=== PATIENT | female | born 1985 | race African-American/Black ===

== ENCOUNTER 2020-04-07 07:48 | Outpatient (CLI) | payer MEDICARE, OTHER ==
[2020-04-07 18:28] LABS: BHCG - Serum Negative (NEGATIVE); Pregs Control Background? CLEAR/WHITE (CLR/WHITE); Pregs Control Bar Appear? YES (CONTROL BAR)
[2020-04-08 14:16] LABS: SARS-CoV-2 MS2 Positive; SARS-CoV-2 N Gene Negative; SARS-CoV-2 S Gene Negative; SARS-CoV-2 by NAA Not Detected (NotDetected); SARS-CoV-2 orf1ab Negative
== END 2020-04-07 07:49 | disposition home or self-care (01) ==
LOC: LABBT 07:48
PROVIDERS: ATTEND Ophthalmology Retina Specialist
DX: Z01.812 Encounter for preprocedural laboratory examination (principal); Z11.59 Encounter for screening for other viral diseases; H57.12 Ocular pain, left eye; H44.522 Atrophy of globe, left eye
CPT/HCPCS: 84703; U0003; 87635

== ENCOUNTER 2020-09-02 11:31 | Inpatient (IN) | payer MEDICARE, OTHER ==
[2020-09-02 12:11] LABS: #Monocytes 0.9 thou/uL (0.11-0.59); %Eosinophils 0.3 % (0.0-10.0); %Lymphocytes 14.5 % (21.0-51.0); %Monocytes 12.5 % (0.0-10.0); %Neutrophils 72.7 % (42.0-75.0); Hemoglobin 11.9 g/dL (12.0-16.0); Mean Corpuscular HGB CONC 33.7 g/dL (32.0-36.0); Mean Corpuscular Hemoglobin 33.9 pg (27.0-31.0); Mean Platelet Volume 7.5 fL (7.4-10.4); Platelet Count 213 thou/uL (130-400); RBC Distribution Width 12.6 % (11.5-14.5); Red Blood Cell (RBC) Count 3.51 mill/uL (4.20-5.40); White Blood Cell (WBC) Count 6.9 thou/uL (4.8-10.8)
--- NOTE | 2020-09-02 12:21 | RAD ---
RADIOGRAPH CHEST 1 VIEW: DATE: 09/02/2020 TIME: 12:14 PM HISTORY: 35-year-old female with malaise, body ache, and dyspnea COMPARISON: 01/20/2016 FINDINGS: The degree of cardiomegaly is difficult to compare with prior study because of differences in positio reynold. Mild perihilar left upper lobe central infiltrate. Streaky density at left lower lobe may represent s ubsegmental atelectasis. No pneumothorax. No effacement of lateral costophrenic angles. Vascular stents in left arm. IMPRESSION: 1) mild left perihilar infiltrates: Evidence for early pneumonia. 2) cardiomegaly
[2020-09-02 12:40] LABS: ALT (SGPT) Less than 7 U/L (8-55); AST (SGOT) 14 U/L (5-34); Albumin 3.8 g/dL (3.5-5.0); Alkaline Phosphatase 41 U/L (40-110); Anion Gap 20 mmol/L (10-20); BUN (Urea Nitrogen) 30 mg/dL (7.0-18.7); Bilirubin, Total 0.6 mg/dL (0.2-1.2); Calc. Creatinine Clearance 0 mL/min (70-130); Calcium 9.3 mg/dL (7.8-10.44); Carbon Dioxide 25 mmol/L (22-29); Chloride 95 mmol/L (98-107); Glucose 165 mg/dL (70-105); Potassium 4.5 mmol/L (3.5-5.1); Protein, Total 8.8 g/dL (6.0-8.3); Sodium 135 mmol/L (136-145)
[2020-09-02] MEDS ORDERED: Ondansetron ODT 8 MG TAB ONE (13:44)
[2020-09-02] MEDS ORDERED: Vancomycin 1 GM/200 ML BAG ONE (14:02)
[2020-09-02] MEDS ORDERED: Morphine 4 MG/ML VIAL ONE (14:02)
[2020-09-02] MEDS ORDERED: Promethazine HCl 25 MG/ML VIAL ONE (14:03)
--- NOTE | 2020-09-02 14:21 | PDOC.FPRHP ---
- History of Present Illness Chief Complaint: N/V/D, Cough History of Present Illness: Pt is a 35 yo female with PMH significant for Diabetes diagnosed at age 13 currently controlled with insulin, ESRD MWF, HTN, anemia, HLD, nicotine abuse, anxiety, blindness who presents to the ED with N/V/D and worsening dry cough sta rting 08/29/20. She states she had decreased PO intake and not tolerating solids. She is unsure the last time she ate. She has been taking her insulin as directed and does not report significant hypoglycemic episodes. She has been taking her PO medications as directed. She has not missed dialysis, MWF schedule. They took off less fluid yesterday than usual. Pt denies COVID exposures or sick contacts. She otherwise has no complaints. TAMP - Gill - Allergies/Adverse Reactions Allergies Allergy/AdvReac Type Severity Reaction Status Date / Time ibuprofen Allergy Verified 04/07/20 15:31 lisinopril Allergy Verified 04/07/20 15:31 tramadol Allergy Verified 04/07/20 15:31 acetaminophen [From Tylenol] AdvReac Verified 04/07/20 15:31 - Home Medications Medication Instructions Recorded Confirmed Type ALPRAZolam 0.25 mg PO BID 09/02/20 09/02/20 History Amlodipine Besylate [amLODIPine 10 mg PO DAILY 09/02/20 09/02/20 History Besylate] Esomeprazole Magnesium [Nexium 40 mg PO DAILY 09/02/20 09/02/20 History 24Hr] Esomeprazole Sodium 09/02/20 History Ferric Citrate [Auryxia] 420 mg PO TID-WM 09/02/20 09/02/20 History Gabapentin 300 mg PO HS 09/02/20 09/02/20 History Insulin NPH Human Isophane 15 unit SC BID 09/02/20 09/02/20 History [NovoLIN N] Metoprolol Succinate 100 mg PO DAILY 09/02/20 09/02/20 History diphenhydrAMINE HCl 25 mg PO HS PRN 09/02/20 09/02/20 History [Diphenhydramine HCl] - History PMHx: DM insulin dependent, ESRD, HTN, Anemia, HLD, Nicotine dependence, Retinal Detachment PSHx: Eye surgery 04/24 FHx: Mother - DM Social: denies alcohol, drugs. Endorsed 1/2 ppd smoking history - Review of Systems General: reports: fever/chills, weight/appetite/sleep changes, fatigue Eyes: denies: eye pain, vision changes ENT: denies: nasal congestion, rhinorrhea Respiratory: reports: cough, congestion, shortness of breath Cardiovascular: reports: orthopnea. denies: chest pain, palpitation, edema Gastrointestinal: reports: nausea, vomiting, diarrhea. denies: constipation, abdominal pain, GI bleeding Genitourinary: denies: incontinence, dysuria Skin: denies: rashes, lesions, jaundice Musculoskeletal: denies: pain, tenderness Neurological: denies: numbness, syncope Psychological: denies: anxiety, depression - Vital signs BP: 152/74 HR: 115 RR: 25 Tmax: 103.2 Pox: 98% on RA Wt: 75 kg - Physical Exam Constitutional: NAD, awake, alert and oriented HEENT: normocephalic and atraumatic, conjunctiva clear Neck: FROM, trachea midline, no JVD Heart: pulses present, no edema -Heart: Tachycardic, no murmurs appreciated Lungs: CTAB, good air movement, no rales/rhonchi, no wheezing Abdomen: soft, non-tender, bowel sounds present Musculoskeletal: normal structure, normal tone Neurological: no focal deficit, normal sensation Skin: no rash/lesions, capillary refill <2 seconds, no jaundice Heme/Lymphatic: no unusual bruising or bleeding, no purpura, no petechia Psychiatric: normal mood and affect, good judgment and insight FMR H&P: Results - Labs Result Diagrams: 09/02/20 11:55 09/02/20 11:55 Lab results: WBC 6.9 thou/uL (4.8-10.8) 09/02/20 11:55 Hgb 11.9 g/dL (12.0-16.0) L 09/02/20 11:55 Hct 35.2 % (36.0-47.0) L 09/02/20 11:55 MCV 100.0 fL (78.0-98.0) H 09/02/20 11:55 Plt Count 213 thou/uL (130-400) 09/02/20 11:55 Neutrophils % 72.7 % (42.0-75.0) 09/02/20 11:55 Sodium 135 mmol/L (136-145) L 09/02/20 11:55 Potassium 4.5 mmol/L (3.5-5.1) 09/02/20 11:55 Chloride 95 mmol/L (98-107) L 09/02/20 11:55 Carbon Dioxide 25 mmol/L (22-29) 09/02/20 11:55 BUN 30 mg/dL (7.0-18.7) H 09/02/20 11:55 Creatinine 8.01 mg/dL (0.6-1.1) H 09/02/20 11:55 Glucose 165 mg/dL (70-105) H 09/02/20 11:55 Lactic Acid 2.4 mmol/L (0.5-2.2) H 09/02/20 11:55 Calcium 9.3 mg/dL (7.8-10.44) 09/02/20 11:55 Total Bilirubin 0.6 mg/dL (0.2-1.2) 09/02/20 11:55 AST 14 U/L (5-34) 09/02/20 11:55 ALT Less than 7 U/L (8-55) L 09/02/20 11:55 Alkaline Phosphatase 41 U/L (40-110) 09/02/20 11:55 Serum Total Protein 8.8 g/dL (6.0-8.3) H 09/02/20 11:55 Albumin 3.8 g/dL (3.5-5.0) 09/02/20 11:55 - EKG Interpretation EKG: Tachycardia, normal rhythm; no ST changes noted - Radiology Interpretation Chest x-ray Status: image reviewed by me, report reviewed by me Additional comment: No focal consolidation appreciated; no pulmonary congestion FMR H&P: A/P - Problem List (1) ESRD (end stage renal disease) Current Visit: Yes Status: Acute Code(s): N18.6 - END STAGE RENAL DISEASE (2) Fever Current Visit: Yes Status: Acute Code(s): R50.9 - FEVER, UNSPECIFIED (3) N&V (nausea and vomiting) Current Visit: Yes Status: Acute Code(s): R11.2 - NAUSEA WITH VOMITING, UNSPECIFIED (4) Diarrhea Current Visit: Yes Status: Acute Code(s): R19.7 - DIARRHEA, UNSPECIFIED (5) Poor fluid intake Current Visit: Yes Status: Acute Code(s): R63.8 - OTHER SYMPTOMS AND SIGNS CONCERNING FOOD AND FLUID INTAKE (6) DM type 1 (diabetes mellitus, type 1) Current Visit: No Status: Chronic Qualifiers: Diabetes mellitus complication status: with kidney complications Chronic kidney disease stage: stage 3 (moderate) - Plan Pt is a 35 yo female being admitted for infection of likely viral etiology: # Viral Infection Likely viral. Possible COVID infection. Less likely bacterial without left shift, leukocytosis. Will still assess for bacterial infection. CXR did not apprear to have focal consolidation. - rapid COVID, Influenza - COVID PCR - Procal pending. If positive will treat for CAP. Will not repeat abx from ED. - UA pending. She does make urine in setting of ESRD and is also diabetic. Denies significant back pain, dysuria. - Administer 2 L as she is likely fluid down due to poor PO intake, diarrhea, emesis. Will likely see improvement of vitals with fluids. - tylenol prn for fever - repeat lactic acid after receiving fluids # DM Unsure if type 1 vs 2 but is insulin dependent. Diagnosed at age 13. C-Peptide in clinic was elevated. - Will start Novolin N at 15 U BID. Unsure if she is taking 15 U BID or 30 U BID from reviewing clinic records - will discuss with PCP Dr. Gill. SSI initiated. - hyperglycemia protocol - continue gabapentin # ESRD - will require dialysis MWF # HTN - continue home medications. She was listed to have stopped Losartan/HCTZ but will clarify with PCP Dr. Gill. # HLD - continue home meds # Nicotine abuse - likely making cough worse - will not administer nicotine patch at this time # Hx of Abnormal Pap - follow up with PCP # Anxiety - continue home meds Fluids: Encourage PO intake after receiving fluids Diet: Diabetic diet, High protein VTE: Heparin TID Dispo: Admit to medical obs, LOS < 48 hours Addendum - Attending - Attending Attestation Date/Time: 09/02/201946 I personally evaluated the patient and discussed the management with Dr. Rivas. I agree with the History, Examination, Assessment and Plan documented above with any addition or exceptions noted below. patient with history of an stage renal disease on hemodialysis therapy as well as multiple other chronic medical conditions here with several days of fever, nausea, vomiting, inability to tolerate PO. Overall, labs appear stable and at baseline. Chest x-ray does not reveal any acute findings. Covid swab positive. Patient will be admitted for the following: COVID-19 infection, intractable nausea and vomiting, hypovolemia. fortunately, the patient does not have any respiratory findings at this time. She has normal vital signs with the exception of fever. Patient will be volume resuscitated and will provide anti-emetic control. Further management pending clinical course.
[2020-09-02] MEDS ORDERED: Acetaminophen 500 MG TAB ONE ×2 (15:45→22:21)
[2020-09-02 16:06] LABS: SARS-CoV-2 NAA Rapid Test DETECTED (NotDetected)
[2020-09-02] MEDS ORDERED: Cefepime 2 GM VIAL ONE (20:36)
[2020-09-02] MEDS ORDERED: Azithromycin 500 MG in Sodium Chloride 0.9% 250 ML 250 ML IVPB SCH (21:00)
[2020-09-02] MEDS ORDERED: cefTRIAXone\\ROCEPHIN 1 GM in Sodium Chloride 0.9% 100 ML IVPB SCH (21:00)
[2020-09-02] MEDS ORDERED: Gabapentin 300 MG CAP PO SCH (21:00)
--- NOTE | 2020-09-02 22:06 | CON ---
DATE OF CONSULTATION: 09/02/2020 SERVICE: Nephrology. REASON FOR CONSULTATION: End-stage renal disease management. REQUESTING PROVIDER: Donavon Rivas DO HISTORY OF PRESENT ILLNESS: 35-year-old female with known history of diabetes since age 13, complicated with diabetic nephropathy leading to end-stage renal disease, for which she is on hemodialysis Tuesday, Tuesday, Tuesday with last treatment being yesterday, August,, who presents to the hospital with acute onset of fever and worsening shortness of breath since earlier today. Patient has been having nausea, vomiting, and diarrhea as well as dry cough since August 29. She also reported ill feeling and poor oral intake and nausea and vomiting got worse also today such that she was unable to keep anything down. She was found to be febrile on presentation and further evaluation revealed COVID positivity. Nephrology consult was requested for end-stage renal disease management. PAST MEDICAL HISTORY: 1. Insulin dependent diabetes mellitus. 2. End-stage renal disease, on hemodialysis. 3. Hypertension. 4. Anemia in CKD. 5. Hyperlipidemia. 6. Tobacco dependence. 7. Retinal detachment. PAST SURGICAL HISTORY: Eye surgery. FAMILY HISTORY: Significant for diabetes in mother. SOCIAL HISTORY: Patient is a current everyday smoker, smoking about half pack per day. Denied alcohol or recreational drug use. ALLERGIES: PATIENT REPORTS ADVERSE AND ALLERGIC REACTION TO THE FOLLOWIN. IBUPROFEN. 2. LISINOPRIL. 3. TRAMADOL. 4. ACETAMINOPHEN. CURRENT HOME MEDICATIONS: 1. Alprazolam 0.25 mg p.o. b.i.d. 2. Amlodipine 10 mg p.o. daily. 3. Nexium 40 mg p.o. daily. 4. Ferric citrate 420 p.o. t.i.d. with meals. 5. Gabapentin mg p.o. daily at bedtime. 6. NPH insulin 15 units subcutaneously b.i.d. 7. Metoprolol succinate 100 mg p.o. daily. 8. Diphenhydramine 25 mg p.o. at bedtime p.r.n. REVIEW OF SYSTEMS: Patient did not make urine, but denied hematuria or dysuria. She also denied leg swelling or chest pain. She admitted to body aches and ill feeling. Other components of 12-point review of system performed was negative other than pertinent positives and negatives included in the history of present illness. PHYSICAL EXAMINATION: VITAL SIGNS: Temperature 103.2, pulse 115, respiratory rate 25, SpO2 of 98% on room air, blood pressure 152/74. GENERAL: Female, in no obvious distress. Febrile. Anicteric and acyanotic. HEENT: Normocephalic, atraumatic. Oral mucosa is dry. NECK: Supple with no JVD. CARDIOVASCULAR: Regular rhythm and rate with normal heart sounds 1 and 2. Tachycardic. RESPIRATORY: Fair air entry bilaterally with no obvious crackle or rhonchi or use of accessory muscles. GI: Abdomen is full, soft, nontender, nondistended with normal bowel sounds. EXTREMITIES: Grossly normal looking and atraumatic with no edema or erythema. SKIN: No obvious rash or lesion appreciated. [employer] SALES: Conscious, alert, oriented x3 with appropriate mental status. Cranial nerves 2 through 12 are grossly intact. DIAGNOSTIC DATA: CBC showed WBC count of 6.9, hemoglobin of 11.9, MCV of 100, and platelets of 213. Chemistry showed sodium 135, potassium 4.5, chloride 95, CO2 of 25, BUN 30, creatinine 8.01, glucose 165, calcium 9.3, total bilirubin 0.6, AST 14, ALT less than 7, alkaline phosphatase 41, total protein 8.8, albumin 3.8. Initial lactic acid is 2.4. Chest x-ray showed mild left perihilar infiltrates suggestive of early pneumonia as well as cardiomegaly. ASSESSMENT: 1. End-stage renal disease secondary to diabetic nephropathy, on hemodialysis Tuesday, Tuesday, Tuesday. Last hemodialysis was yesterday, September 01, 2020. Volume status and electrolytes are acceptable. There is no immediate need for hemodialysis today. We will plan on dialyzing the patient tomorrow in line with outpatient schedule. 2. Hypertension: Control is suboptimal. Expected to improve with restart of usual antihypertensives. 3. Anemia in chronic kidney disease, stable. 4. Coronavirus disease infection. 5. Sepsis due to coronavirus disease. 6. Tachycardia: Most likely due to volume depletion and sepsis. 7. Dehydration: We will start the patient on gentle IV fluid therapy with normal saline. 8. [place] oral intake also advised. 9. Further treatment to follow depending on hospital course. Job ID: [id number]
[2020-09-02 22:16] LABS: INR-International Normal Ratio 1.2; PTT 31.5 sec (22.9-36.1); Prothrombin Time 15.1 sec (12.0-14.7)
[2020-09-02 22:17] LABS: D-Dimer Test 1.53 *mcg/mL (0.27-0.43)
--- NOTE | 2020-09-02 22:22 | PDOC.BPN ---
- Brief Progress Note Paged by nurse that patient was requiring 2L O2, was able to wean down to 1L over the course of 1 hr. Currently sating 95 on 1L. Patient has had a fever throughout the day, most recent 101.1. HR 94, RR 22. Patient states that she does not feel short of breath, and notes intermittent cough. We ordered Covid Labs including ferritin, LDH, DD, CRP, PT & INR. Will start patient on decadron 6mg daily. Gave 1g Tylenol. On exam patient's lungs are CTAB, no LE edema or evidence of fluid overload. She last received dialysis yesterday, and will receive it again tomorrow 09/03.
[2020-09-02] MEDS ORDERED: Heparin 5,000 UNITS/ML VIAL SC SCH (23:15)
[2020-09-02] MEDS ORDERED: Dexamethasone 4 MG TAB PO SCH (23:15)
[2020-09-02] MEDS: Sodium Chloride 0.9% 1,000 ML IV SCH (23:30)
[2020-09-03] MEDS ORDERED: Ondansetron ODT 4 MG TAB PO PRN (00:15)
[2020-09-03] MEDS ORDERED: Heparin 5,000 UNITS/ML VIAL SC SCH ×2 (01:15→09:00)
[2020-09-03 01:44] VITALS: BMI 30.7
[2020-09-03] MEDS ORDERED: Promethazine 25 MG TAB PO PRN ×2 (01:46→01:48)
[2020-09-03] MEDS ORDERED: Ibuprofen 600 MG TAB PO SCH (02:15)
[2020-09-03] MEDS: ALPRAZolam 0.25 MG TAB PO SCH ×3 (02:29→23:02)
[2020-09-03] MEDS: NPH, Human Insulin Isophane 300 UNIT/3 ML VIAL SC SCH ×3 (02:29→23:24)
[2020-09-03] MEDS ORDERED: Sodium Chloride 0.9% (PF) 10 ML VIAL FS PRN (05:00)
[2020-09-03] MEDS ORDERED: Pantoprazole 40 MG VIAL IVP SCH (05:00)
[2020-09-03] MEDS ORDERED: Promethazine 25 MG TAB PO SCH (05:00)
[2020-09-03] MEDS ORDERED: Morphine 2 MG/ML VIAL SLOW IVP SCH (05:00)
[2020-09-03] MEDS: Acetaminophen 325 MG TAB PO PRN ×2 (05:32→10:56)
--- NOTE | 2020-09-03 06:17 | PDOC.FM ---
- Subjective Subjective: Overnight patient began requiring supplemental oxygen at 2 L then titrated to 1 L. She did not apparently feel short of breath according to the night team. Team ordered COVID labs for initial assessment of dyspnea and started patient on decadron. This morning pt is greatly improved. She tolerated no oxygen while I spoke with her. Nausea is controlled with phenergan. Denies SOB, LE edema. - Objective Vital Signs & Weight: Vital Signs (12 hours) Temp Pulse Resp BP Pulse Ox 09/03/20 05:32 102.2 F H 09/02/20 23:33 98.9 F 87 18 125/78 99 Weight Weight 81.102 kg Result Diagrams: 09/03/20 07:19 09/03/20 07:19 Phys Exam - Physical Examination Constitutional: NAD HEENT: PERRLA, moist MMs Neck: no JVD, full ROM Respiratory: no wheezing, no rales, no rhonchi, clear to auscultation bilateral Cardiovascular: RRR, no significant murmur Gastrointestinal: soft, positive bowel sounds Musculoskeletal: no edema, pulses present Neurological: non-focal, moves all 4 limbs Psychiatric: normal affect, A&O x 3 Dx/Plan (1) ESRD (end stage renal disease) Code(s): N18.6 - END STAGE RENAL DISEASE Status: Acute (2) Fever Code(s): R50.9 - FEVER, UNSPECIFIED Status: Acute (3) N&V (nausea and vomiting) Code(s): R11.2 - NAUSEA WITH VOMITING, UNSPECIFIED Status: Acute (4) Diarrhea Code(s): R19.7 - DIARRHEA, UNSPECIFIED Status: Acute (5) Poor fluid intake Code(s): R63.8 - OTHER SYMPTOMS AND SIGNS CONCERNING FOOD AND FLUID INTAKE Status: Acute (6) DM type 1 (diabetes mellitus, type 1) Status: Chronic Qualifiers: Diabetes mellitus complication status: with kidney complications Chronic kidney disease stage: stage 3 (moderate) - Plan Plan: Pt is a 35 yo female being admitted for COVID pneumonia: # COVID Pneumonia - repeat procalcitonin this am. It was 0.59 in the setting of ESRD. Will reassess for need of abx. - Procal pending. If positive will treat for CAP. Will not repeat abx from ED. - repeat lactic acid downtrended - no requiring oxygen supplementation at this time. Will consider discharge if she continues not requiring oxygen and has dialysis in outpt setting. - CM consulted for [facility] # N/V - likely secondary to COVID infection. Discussed possible withdrawal from benzodiazepam with her PCP who did not refill medication. She will receive Xanax today. Will start ASE protocol - Continue phenergan, zofran - Encourage PO intake, supplement with NS until she can tolerate PO intake # DM Unsure if type 1 vs 2 but is insulin dependent. Diagnosed at age 13. C-Peptide in clinic was elevated. - Will start Novolin N at 15 U BID. Unsure if she is taking 15 U BID or 30 U BID. She does not bring in medications per Dr. Gill. SSI initiated. - hyperglycemia protocol - continue gabapentin # ESRD - will require dialysis MWF. Will receive dialysis today. - Dr. Garcia consulted, appreciate recs # HTN - continue home medications. If BP not well controlled with home medications can consider starting Losartan/HCTZ which she has previously discontinued. # HLD - continue home meds # Nicotine abuse - likely making cough worse - will not administer nicotine patch at this time # Hx of Abnormal Pap - follow up with PCP # Anxiety - continue home meds Fluids: NS 75 mls/hr Diet: Diabetic diet, High protein VTE: Heparin TID Dispo: Admit to medical obs, LOS < 48 hours Addendum - Attending - Attending Attestation Date/Time: 09/03/20 [id number] I personally evaluated the patient and discussed the management with Dr. Rivas. I agree with the History, Examination, Assessment and Plan documented above with any addition or exceptions noted below.
[2020-09-03 07:34] LABS: #Lymphocytes 0.7 thou/uL (1.20-3.40); #Monocytes 0.6 thou/uL (0.11-0.59); #Neutrophils 6.4 thou/uL (1.40-6.50); %Basophils 0.2 % (0.0-1.0); %Eosinophils 0.2 % (0.0-10.0); %Lymphocytes 9.5 % (21.0-51.0); %Monocytes 8.1 % (0.0-10.0); Hemoglobin 9.2 g/dL (12.0-16.0); Mean Corpuscular HGB CONC 33.3 g/dL (32.0-36.0); Mean Corpuscular Hemoglobin 33.7 pg (27.0-31.0); Mean Platelet Volume 7.1 fL (7.4-10.4); Platelet Count 181 thou/uL (130-400); RBC Distribution Width 12.5 % (11.5-14.5); Red Blood Cell (RBC) Count 2.73 mill/uL (4.20-5.40); White Blood Cell (WBC) Count 7.8 thou/uL (4.8-10.8)
[2020-09-03 07:55] LABS: Anion Gap 17 mmol/L (10-20); BUN (Urea Nitrogen) 36 mg/dL (7.0-18.7); BUN/Creatinine Ratio 3.73; Calc. Creatinine Clearance 11 mL/min (70-130); Calcium 8.1 mg/dL (7.8-10.44); Carbon Dioxide 22 mmol/L (22-29); Chloride 100 mmol/L (98-107); Glucose 109 mg/dL (70-105); Phosphorus 5.6 mg/dL (2.3-4.7); Potassium 4.5 mmol/L (3.5-5.1); Sodium 134 mmol/L (136-145)
[2020-09-03] MEDS: Amlodipine 10 MG TAB PO SCH (09:08)
[2020-09-03] MEDS: Heparin 5,000 UNITS/ML VIAL SC SCH ×3 (09:09→23:02)
--- NOTE | 2020-09-03 09:11 | PDOC.NEPPN ---
- Subjective Encounter Date: 09/03/20 Subjective: 35 y/o female with ESRD 2/2 Diabetic nephropathy admitted with fever associated with ill feeling and SOB. Feeling better and fever has defervessed. Last treatment was on 09/01/2020. - Objective Vital Signs & Weight: Vital Signs (12 hours) Temp Pulse Resp BP BP Pulse Ox 09/03/20 08:00 100.2 F H 99 20 151/76 H 97 09/03/20 06:20 101.5 F H 100 09/03/20 05:32 102.2 F H 09/03/20 05:30 102.2 F H 105 H 20 157/49 H 98 09/03/20 04:15 102.8 F H 09/03/20 04:00 101.6 F H 112 H 22 H 167/71 H 167/71 H 98 09/02/20 23:33 98.9 F 87 18 125/78 99 09/02/20 23:30 98.9 F Weight Weight 178 lb 12.8 oz I&O: 09/02/20 09/03/20 09/04/20 06:59 06:59 06:59 Intake Total 925 Output Total 200 Balance 725 Result Diagrams: 09/03/20 07:19 09/03/20 07:19 Additional Labs: Accuchecks 09/03/20 04:22 POC Glucose 93 Nephrology ROS - Medication Medications: Active Medications Generic Name Dose Route Start Last Admin Trade Name Freq PRN Reason Stop Dose Admin Acetaminophen 650 mg 09/03/20 00:15 09/03/20 05:32 Acetaminophen 325 Mg Tab PO 650 mg Q4H PRN Administration Fever > 101 Alprazolam 0.25 mg 09/02/20 21:00 09/03/20 02:29 Alprazolam 0.25 Mg Tab PO Not Given BID MEME Sodium Chloride 1,000 mls @ 75 mls/hr 09/02/20 20:45 09/02/20 23:30 Normal Saline 0.9% IV 1,000 mls .[id number] MEME Administration Insulin Human NPH 15 unit 09/02/20 21:00 09/03/20 02:29 Nph, Human Insulin Isophane 300 Unit/3 Ml Vial SC Not Given BID MEME - Exam General Appearance: awake alert Eye: anicteric sclera ENT: normocephalic atraumatic Neck: symmetric, no JVD Respiratory - other findings: fair air entry bilterally with some transmitted sound Cardiovascular: RRR Gastrointestinal: soft, non-distended, normal bowel sounds Extremities: no edema Neurological: CN's grossly intact PSYCH: A&O x 3 Nephrology Results - Labs Result Diagrams: 09/03/20 07:19 09/03/20 07:19 Lab results: WBC 7.8 thou/uL (4.8-10.8) 09/03/20 07:19 Hgb 9.2 g/dL (12.0-16.0) L 09/03/20 07:19 Hct 27.6 % (36.0-47.0) L 09/03/20 07:19 MCV 101.0 fL (78.0-98.0) H 09/03/20 07:19 Plt Count 181 thou/uL (130-400) 09/03/20 07:19 Neutrophils % 82.0 % (42.0-75.0) H 09/03/20 07:19 Sodium 134 mmol/L (136-145) L 09/03/20 07:19 Potassium 4.5 mmol/L (3.5-5.1) 09/03/20 07:19 Chloride 100 mmol/L (98-107) 09/03/20 07:19 Carbon Dioxide 22 mmol/L (22-29) 09/03/20 07:19 BUN 36 mg/dL (7.0-18.7) H 09/03/20 07:19 Creatinine 9.66 mg/dL (0.6-1.1) H 09/03/20 07:19 Glucose 109 mg/dL (70-105) H 09/03/20 07:19 Lactic Acid 1.0 mmol/L (0.5-2.2) 09/02/20 16:25 Calcium 8.1 mg/dL (7.8-10.44) 09/03/20 07:19 Total Bilirubin 0.6 mg/dL (0.2-1.2) 09/02/20 11:55 AST 14 U/L (5-34) 09/02/20 11:55 ALT Less than 7 U/L (8-55) L 09/02/20 11:55 Alkaline Phosphatase 41 U/L (40-110) 09/02/20 11:55 Creatine Kinase 71 U/L (29-168) 09/02/20 14:05 C-Reactive Protein 3.15 mg/dL (= or < 0.5) H 09/02/20 21:58 B-Natriuretic Peptide 710.2 pg/mL (0-100) H 09/02/20 14:05 Serum Total Protein 8.8 g/dL (6.0-8.3) H 09/02/20 11:55 Albumin 3.0 g/dL (3.5-5.0) L 09/03/20 07:19 Sodium 134 mmol/L (136-145) L 09/03/20 07:19 Potassium 4.5 mmol/L (3.5-5.1) 09/03/20 07:19 Chloride 100 mmol/L (98-107) 09/03/20 07:19 Carbon Dioxide 22 mmol/L (22-29) 09/03/20 07:19 Anion Gap 17 mmol/L (10-20) 09/03/20 07:19 BUN 36 mg/dL (7.0-18.7) H 09/03/20 07:19 Creatinine 9.66 mg/dL (0.6-1.1) H 09/03/20 07:19 Glucose 109 mg/dL (70-105) H 09/03/20 07:19 Calcium 8.1 mg/dL (7.8-10.44) 09/03/20 07:19 Phosphorus 5.6 mg/dL (2.3-4.7) H 09/03/20 07:19 Albumin 3.0 g/dL (3.5-5.0) L 09/03/20 07:19 Nephrology AP PN - Plan ASSESSMENT: End-stage renal disease secondary to diabetic nephropathy, on hemodialysis Tuesday, Tuesday, Tuesday. Last hemodialysis was yesterday, September 01, 2020. Hypertension: Control is better Anemia in chronic kidney disease, stable. Coronavirus infection. Sepsis due to Covid and or bacteremia. 1/2 blood cultures is growing GPC Tachycardia: Most likely due to volume depletion and sepsis. Resolved Dehydration: Improved. PLAN Will dilayze patient today. DC IVF. Recommend antimicrobial therapy given GPC in blood. Follow Blood cultres Hold earlier planned discharge.
[2020-09-03] MEDS: Sodium Chloride 0.9% 1,000 ML IV SCH (10:15)
[2020-09-03] MEDS ORDERED: Dextrose 50% Abboject 50 ML SYRINGE SLOW IVP PRN (15:48)
[2020-09-03] MEDS ORDERED: Dextrose 5% in Water 1,000 ML IV PRN (15:48)
[2020-09-03] MEDS: Dexamethasone 4 MG TAB PO SCH (16:35)
[2020-09-03] MEDS: HumaLOG 300 UNITS/3 ML VIAL SC PRN (18:02)
[2020-09-03] MEDS: Acetaminophen 500 MG TAB PO PRN (23:02)
[2020-09-04] MEDS: diphenhydrAMINE 25 MG CAP PO PRN (00:54)
[2020-09-04] MEDS: Acetaminophen 500 MG TAB PO PRN ×2 (05:04→13:00)
--- NOTE | 2020-09-04 07:09 | PDOC.FM ---
- Subjective Subjective: Pt is doing well this morning. Titrated off of oxygen. She has not had a walking program to assess for ability to maintain oxygen saturations. She denies N/V. Has good PO intake. She felt anxious prior to be placed on oxygen last night. - Objective Vital Signs & Weight: Vital Signs (12 hours) Temp Pulse Resp BP Pulse Ox 09/04/20 05:15 98.1 F 86 18 134/84 96 09/04/20 00:54 99.9 F H 09/03/20 23:00 100.2 F H 103 H 20 129/77 100 Weight Weight 81.102 kg I&O: 09/03/20 09/04/20 09/05/20 06:59 06:59 06:59 Intake Total 925 Output Total 200 Balance 725 Result Diagrams: 09/03/20 07:19 09/03/20 07:19 Phys Exam - Physical Examination Constitutional: NAD HEENT: PERRLA, moist MMs Neck: no JVD, full ROM Respiratory: no wheezing, clear to auscultation bilateral Cardiovascular: RRR, no significant murmur Gastrointestinal: soft, non-tender Musculoskeletal: no edema, pulses present Psychiatric: normal affect, A&O x 3 Dx/Plan (1) ESRD (end stage renal disease) Code(s): N18.6 - END STAGE RENAL DISEASE Status: Acute (2) Fever Code(s): R50.9 - FEVER, UNSPECIFIED Status: Acute (3) N&V (nausea and vomiting) Code(s): R11.2 - NAUSEA WITH VOMITING, UNSPECIFIED Status: Acute (4) Diarrhea Code(s): R19.7 - DIARRHEA, UNSPECIFIED Status: Acute (5) Poor fluid intake Code(s): R63.8 - OTHER SYMPTOMS AND SIGNS CONCERNING FOOD AND FLUID INTAKE Status: Acute (6) DM type 1 (diabetes mellitus, type 1) Status: Chronic Qualifiers: Diabetes mellitus complication status: with kidney complications Chronic kidney disease stage: stage 3 (moderate) - Plan Plan: Pt is a 35 yo female being admitted for COVID pneumonia: # COVID Pneumonia - Mild disease not requiring oxygen. No need for treatment. 10 days from positive test will be removed from isolation precautions. - No documented hypoxic episode but placed on NC Oxygen overnight. Will discontinue this morning. She was anxious overnight. Will do walking program today to see if she can maintain o2 sats. # N/V - Continue phenergan, zofran. Will send home with phenergan - Encourage PO intake # DM Unsure if type 1 vs 2 but is insulin dependent. Diagnosed at age 13. C-Peptide in clinic was elevated. - Will start Novolin N at 15 U BID. Unsure if she is taking 15 U BID or 30 U BID. She does not bring in medications per Dr. Gill. SSI initiated. - hyperglycemia protocol - continue gabapentin # ESRD - Normally MWF. She has been switched to T//Sat due to COVID. She has a spot at at [address]. She has a ride. - Dr. Garcia consulted, appreciate recs # HTN - continue home medications. # HLD - continue home meds # Nicotine abuse - likely making cough worse - will not administer nicotine patch at this time # Hx of Abnormal Pap - follow up with PCP # Anxiety - continue home meds Fluids: PO Diet: Diabetic diet, High protein VTE: Heparin TID Dispo: Admit to medical obs, LOS > 48 hours Addendum - Attending - Attending Attestation Date/Time: 09/04/20 [id number] I personally evaluated the patient and discussed the management with Dr. Rivas. I agree with the History, Examination, Assessment and Plan documented above with any addition or exceptions noted below. Patient improved. Her episode of dyspnea overnight was 2/2 her anxiety that improved after she was able to calm herself. She is otherwise doing well and we are working toward discharge if her O2 sats remain stable. Her blood culture is very likely contaminant given the gram positive isaias in 1/2 culture results.
--- NOTE | 2020-09-04 07:51 | PDOC.NEPPN ---
- Subjective Encounter Date: 09/04/20 Subjective: Seen in follow up for ESRD. Had chills and fever during Hemodialysis yesterday which broke after acetaminophen. Also reported COB and hypoxia and was started on oxygen supplementation. - Objective Vital Signs & Weight: Vital Signs (12 hours) Temp Pulse Resp BP Pulse Ox 09/04/20 05:15 98.1 F 86 18 134/84 96 09/04/20 00:54 99.9 F H 09/03/20 23:00 100.2 F H 103 H 20 129/77 100 Weight Weight 178 lb 12.8 oz I&O: 09/03/20 09/04/20 09/05/20 06:59 06:59 06:59 Intake Total 925 Output Total 200 Balance 725 Result Diagrams: 09/03/20 07:19 09/03/20 07:19 Additional Labs: Accuchecks 09/04/20 09/03/20 09/03/20 05:10 23:20 15:22 POC Glucose 158 H 141 H 279 H 09/03/20 10:04 POC Glucose 135 H Nephrology ROS - Medication Medications: Active Medications Generic Name Dose Route Start Last Admin Trade Name Freq PRN Reason Stop Dose Admin Acetaminophen 650 mg 09/03/20 00:15 09/03/20 05:32 Acetaminophen 325 Mg Tab PO 650 mg Q4H PRN Administration Fever > 101 Acetaminophen 1,000 mg 09/03/20 04:45 09/04/20 05:04 Acetaminophen 500 Mg Tab PO 1,000 mg Q6H PRN Administration Moderate to Severe Pain (6-10) Alprazolam 0.25 mg 09/02/20 21:00 09/03/20 23:02 Alprazolam 0.25 Mg Tab PO 0.25 mg BID MEME Administration Amlodipine Besylate 10 mg 09/03/20 09:00 09/03/20 09:08 Amlodipine 10 Mg Tab PO 10 mg DAILY MEME Administration Dexamethasone 6 mg 09/03/20 17:00 09/03/20 16:35 Dexamethasone 4 Mg Tab PO 6 mg 1700 MEME Administration Diphenhydramine HCl 25 mg 09/02/20 16:10 09/04/20 00:54 Diphenhydramine 25 Mg Cap PO 25 mg HS PRN Administration Insomnia Heparin Sodium (Porcine) 5,000 units 09/03/20 09:00 09/03/20 23:02 Heparin 5,000 Units/Ml Vial SC 5,000 units TID MEME Administration Insulin Human Lispro 0 units 09/03/20 15:48 09/03/20 18:02 Humalog 300 Units/3 Ml Vial SC 4 unit .MILD SLIDING SCALE PRN Administration Mild Correctional Scale Insulin Human NPH 15 unit 09/02/20 21:00 09/03/20 23:24 Nph, Human Insulin Isophane 300 Unit/3 Ml Vial SC Not Given BID MEME Metoprolol Succinate 100 mg 09/03/20 09:00 09/03/20 09:09 Metoprolol Succinate Xl 100 Mg Tab PO 100 mg DAILY MEME Administration - Exam General Appearance: awake alert Eye: anicteric sclera ENT: normocephalic atraumatic Neck: symmetric Respiratory - other findings: fair air entry with some transmitted sound Cardiovascular: RRR Gastrointestinal: soft, non-tender, non-distended, normal bowel sounds Extremities: no edema Neurological: no focal deficits, vision deficit PSYCH: A&O x 3 Nephrology Results - Labs Result Diagrams: 09/03/20 07:19 09/03/20 07:19 Lab results: WBC 7.8 thou/uL (4.8-10.8) 09/03/20 07:19 Hgb 9.2 g/dL (12.0-16.0) L 09/03/20 07:19 Hct 27.6 % (36.0-47.0) L 09/03/20 07:19 MCV 101.0 fL (78.0-98.0) H 09/03/20 07:19 Plt Count 181 thou/uL (130-400) 09/03/20 07:19 Neutrophils % 82.0 % (42.0-75.0) H 09/03/20 07:19 Sodium 134 mmol/L (136-145) L 09/03/20 07:19 Potassium 4.5 mmol/L (3.5-5.1) 09/03/20 07:19 Chloride 100 mmol/L (98-107) 09/03/20 07:19 Carbon Dioxide 22 mmol/L (22-29) 09/03/20 07:19 BUN 36 mg/dL (7.0-18.7) H 09/03/20 07:19 Creatinine 9.66 mg/dL (0.6-1.1) H 09/03/20 07:19 Glucose 109 mg/dL (70-105) H 09/03/20 07:19 Lactic Acid 1.0 mmol/L (0.5-2.2) 09/02/20 16:25 Calcium 8.1 mg/dL (7.8-10.44) 09/03/20 07:19 Total Bilirubin 0.6 mg/dL (0.2-1.2) 09/02/20 11:55 AST 14 U/L (5-34) 09/02/20 11:55 ALT Less than 7 U/L (8-55) L 09/02/20 11:55 Alkaline Phosphatase 41 U/L (40-110) 09/02/20 11:55 Creatine Kinase 71 U/L (29-168) 09/02/20 14:05 C-Reactive Protein 3.15 mg/dL (= or < 0.5) H 09/02/20 21:58 B-Natriuretic Peptide 710.2 pg/mL (0-100) H 09/02/20 14:05 Serum Total Protein 8.8 g/dL (6.0-8.3) H 09/02/20 11:55 Albumin 3.0 g/dL (3.5-5.0) L 09/03/20 07:19 Sodium 134 mmol/L (136-145) L 09/03/20 07:19 Potassium 4.5 mmol/L (3.5-5.1) 09/03/20 07:19 Chloride 100 mmol/L (98-107) 09/03/20 07:19 Carbon Dioxide 22 mmol/L (22-29) 09/03/20 07:19 Anion Gap 17 mmol/L (10-20) 09/03/20 07:19 BUN 36 mg/dL (7.0-18.7) H 09/03/20 07:19 Creatinine 9.66 mg/dL (0.6-1.1) H 09/03/20 07:19 Glucose 109 mg/dL (70-105) H 09/03/20 07:19 Calcium 8.1 mg/dL (7.8-10.44) 09/03/20 07:19 Phosphorus 5.6 mg/dL (2.3-4.7) H 09/03/20 07:19 Albumin 3.0 g/dL (3.5-5.0) L 09/03/20 07:19 Nephrology AP PN - Plan ASSESSMENT: Positive blood culture with Gram positive isaias: Concerning for bacteremia. Still having intermittent fever End-stage renal disease secondary to diabetic nephropathy, on hemodialysis Tuesday, Tuesday, Tuesday. Last hemodialysis was on September 03, 2020. Hypertension: Control is better Anemia in chronic kidney disease, stable. Coronavirus infection. Sepsis due to Covid and or bacteremia. Tachycardia: Most likely due to volume depletion and sepsis. Resolved Dehydration: Resolved Covid infection Hypoxia: ? related to covid. PLAN Will plan on dialyzing patient tomorrow. Patient should be considered for covalescent plasma treatment given elevated inflamatory markers and cormobidities. Get repeat inflammatory marker. Monitor vitals and temp. Get repeat culture should she spike temp. Follow Blood cultres
[2020-09-04] MEDS: Amlodipine 10 MG TAB PO SCH (08:10)
[2020-09-04] MEDS: ALPRAZolam 0.25 MG TAB PO SCH ×2 (08:10→22:45)
[2020-09-04] MEDS: NPH, Human Insulin Isophane 300 UNIT/3 ML VIAL SC SCH ×2 (08:12→20:29)
[2020-09-04] MEDS: Heparin 5,000 UNITS/ML VIAL SC SCH ×3 (08:13→19:59)
[2020-09-04] MEDS: Pantoprazole 40 MG VIAL IVP SCH (08:56)
--- NOTE | 2020-09-04 13:45 | PQF ---
CLINICAL DOCUMENTATION CLARIFICATION FORM: Dear Dr. Rivas Date: 09/04/20 Please exercise your independent, professional judgment in responding to the clarification form. Clinical indicators are provided on the bottom of this form for your review. Please check appropriate box(es) to clarify if the following diagnosis has been ruled in our ruled out: SEPSIS [ ] Ruled in diagnosis [ ] Continue to treat [ ] Resolved [ X ] Ruled out diagnosis [ ] Improving [ ] Cannot rule out diagnosis [ ] Other diagnosis [ ] Unable to determine In addition, please specify: Present on Admission (POA): [ ] Yes [ X ] No [ ] Unable to determine For continuity of documentation, please document condition throughout progress notes and discharge summary. Thank You. To be completed by CDI/Coding staff for physician review: CLINICAL INDICATORS - SIGNS / SYMPTOMS / LABS / RESULTS AND LOCATION IN MR ER NOTE:"SEPSIS" NEPHROLOGY NOTE 09/03: "SEPSIS" PULSE 115 RR 25 TEMP 103.2 RISK FACTORS / RESULTS AND LOCATION IN MR COVID 19 (PN 09/02- VINCE) ESRD (PN 09/02) DIABETES (PN 09/02) TREATMENTS / RESULTS AND LOCATION IN MR IV CEFEPIME (ER) IV VANCOMYCIN (ER) IV LEVAUIN (ER) IV FLUIDS (ER) BLOOD CULTURES 09/02 CDS Signature: Heather Wood RN Phone #: [phone] Date: 09/04/20 This is a permanent part of the Medical Record [facility]
[2020-09-04] MEDS: Dexamethasone 4 MG TAB PO SCH (18:17)
[2020-09-04] MEDS: HumaLOG 300 UNITS/3 ML VIAL SC PRN (18:18)
[2020-09-04] MEDS ORDERED: Cyclobenzaprine 10 MG TAB PO SCH (19:30)
[2020-09-04] MEDS ORDERED: Promethazine HCl 12.5 MG in Sodium Chloride 0.9% 50 ML IVPB SCH (19:45)
[2020-09-04] MEDS: Lidocaine 5% Patch TD SCH (19:59)
[2020-09-04] MEDS: Acetaminophen 325 MG TAB PO PRN (20:17)
[2020-09-05] MEDS: Acetaminophen 500 MG TAB PO PRN ×2 (01:44→14:00)
--- NOTE | 2020-09-05 06:23 | PDOC.FM ---
- Subjective Subjective: Overnight patient was personally evaluated by team. Pt desaturated to 87% while sleeping. Nurse noted desaturation to 80's with ambulation to restroom yesterday. She also has pain and received a lidocaine patch by night team. - Objective Vital Signs & Weight: Vital Signs (12 hours) Temp Pulse Resp BP BP Pulse Ox 09/05/20 05:50 99.9 F H 90 20 102/63 94 L 09/05/20 03:06 93 L 09/05/20 01:44 101.0 F H 108 H 24 H 124/48 L 93 L 09/04/20 23:05 102.3 F H 99 20 116/72 88 L 09/04/20 20:47 101.1 F H 09/04/20 20:17 103.0 F H 102 H 20 141/81 H 09/04/20 20:00 90 L Weight Weight 81.102 kg I&O: 09/03/20 09/04/20 09/05/20 06:59 06:59 06:59 Intake Total 925 2000 Output Total 200 300 Balance 725 1700 Result Diagrams: 09/03/20 07:19 09/05/20 05:53 Phys Exam - Physical Examination Constitutional: NAD HEENT: moist MMs, sclera anicteric Neck: no JVD, full ROM Respiratory: no wheezing, clear to auscultation bilateral Cardiovascular: RRR, no significant murmur Gastrointestinal: soft, positive bowel sounds Musculoskeletal: no edema, pulses present Neurological: non-focal, normal sensation tenderness in cervical and lumbar paraspinal region Psychiatric: normal affect, A&O x 3 Skin: no rash, cap refill <2 seconds Dx/Plan (1) ESRD (end stage renal disease) Code(s): N18.6 - END STAGE RENAL DISEASE Status: Acute (2) Fever Code(s): R50.9 - FEVER, UNSPECIFIED Status: Acute (3) N&V (nausea and vomiting) Code(s): R11.2 - NAUSEA WITH VOMITING, UNSPECIFIED Status: Acute (4) Diarrhea Code(s): R19.7 - DIARRHEA, UNSPECIFIED Status: Acute (5) Poor fluid intake Code(s): R63.8 - OTHER SYMPTOMS AND SIGNS CONCERNING FOOD AND FLUID INTAKE Status: Acute (6) DM type 1 (diabetes mellitus, type 1) Status: Chronic Qualifiers: Diabetes mellitus complication status: with kidney complications Chronic kidney disease stage: stage 3 (moderate) - Plan Plan: Pt is a 35 yo female being admitted for COVID pneumonia: # COVID Pneumonia # Acute hypoxic resp failure - Mild disease - requiring 2-3 L NC oxygen overnight. Continue to monitor during day. WIll go ahead and give convalescent plasma today. Continue dexamethasone. Unable to receive remdesivir due to ESRD. - repeat procalcitonin # N/V - Continue phenergan, zofran. Will send home with phenergan - Encourage PO intake # Back Pain - continue lidocaine patch, will discuss muscle relaxer - encourage ambulation # DM Unsure if type 1 vs 2 but is insulin dependent. Diagnosed at age 13. C-Peptide in clinic was elevated. - Will start Novolin N at 15 U BID. Unsure if she is taking 15 U BID or 30 U BID. She does not bring in medications per Dr. Gill. SSI initiated. Continue same dosing although BG was 70 overnight. - hyperglycemia protocol - continue gabapentin # ESRD - Normally MWF. She has been switched to //Tue due to COVID. She has a spot at [facility] at [address] Garcia. She has a ride. - Dr. Garcia consulted, appreciate recs # HTN - continue home medications. # HLD - continue home meds # Nicotine abuse - likely making cough worse - will not administer nicotine patch at this time # Hx of Abnormal Pap - follow up with PCP # Anxiety - continue home meds Fluids: PO Diet: Diabetic diet, High protein VTE: Heparin TID Dispo: Admit to medical obs, LOS > 48 hours Addendum - Attending - Attending Attestation Date/Time: 09/05/20 1108 I personally evaluated the patient and discussed the management with Dr. Rivas. I agree with the History, Examination, Assessment and Plan documented above with any addition or exceptions noted below. Patient having off/on O2 requirement. She has convalescent plasma ordered for her, though her presentation is not necessarily c/w COVID decompensation. She is otherwise feeling well. Her blood culture was contaminant. Will consider reculture if spikes fever, though she has much more likely explanation for her fevers given her COVID positive status. Continue Decadron and wean O2 as tolerated. Nephro on board specifically for HD management and appreciate their managing her HD schedule.
[2020-09-05 06:32] LABS: Anion Gap 18 mmol/L (10-20); BUN (Urea Nitrogen) 46 mg/dL (7.0-18.7); Calc. Creatinine Clearance 11 mL/min (70-130); Carbon Dioxide 25 mmol/L (22-29); Chloride 94 mmol/L (98-107); Glucose 97 mg/dL (70-105); Potassium 4.2 mmol/L (3.5-5.1); Sodium 133 mmol/L (136-145)
[2020-09-05] MEDS: Amlodipine 10 MG TAB PO SCH (08:51)
[2020-09-05] MEDS: ALPRAZolam 0.25 MG TAB PO SCH ×3 (08:51→22:41)
[2020-09-05] MEDS: Heparin 5,000 UNITS/ML VIAL SC SCH ×3 (08:52→21:15)
[2020-09-05] MEDS: [UNRECOGNIZED DRUG - REMARK] TOP SCH (08:52)
[2020-09-05] MEDS: NPH, Human Insulin Isophane 300 UNIT/3 ML VIAL SC SCH ×2 (08:52→21:16)
[2020-09-05] MEDS: Pantoprazole 40 MG VIAL IVP SCH (08:53)
[2020-09-05] MEDS ORDERED: Lidocaine 5% Patch TD SCH (09:00)
[2020-09-05] MEDS ORDERED: hydrOXYzine 10 MG TAB PO SCH (12:30)
--- NOTE | 2020-09-05 13:40 | RAD ---
EXAM: Chest one view: HISTORY: Worsening oxygen requirement difficulty breathing dyspnea COMPARISON: 09/02/2020 FINDINGS: Poor inspiration. Heart size: Within normal limits. Lungs: Considerable progressive parenchymal changes including the right lower lobe and left mid and l ower lung zone evidence for worsening bilateral pneumonia. No significant pleural effusion. IMPRESSION: Evidence for worsening bilateral pneumonia.
[2020-09-05] MEDS: cefTRIAXone\\ROCEPHIN 1 GM in Sodium Chloride 0.9% 100 ML IVPB SCH (13:50)
[2020-09-05] MEDS: Azithromycin 500 MG in Sodium Chloride 0.9% 250 ML 250 ML IVPB SCH (15:15)
--- NOTE | 2020-09-05 15:55 | ULT ---
EXAM: Left lower extremity venous Doppler HISTORY: Left leg pain. Covid positive. FINDINGS: Grayscale, color-flow, Doppler evaluation, spectral analysis of the left lower extremity venous struc tures is performed with 2-D imaging. The left common femoral, superficial femoral, popliteal, posterior tibial, proximal greater saphenous and profunda femoral veins are imaged. The mid and distal superficial femoral veins are not well seen on grayscale imaging limiting evaluati on for nonocclusive DVT. However, flow is present within these venous structures in addition to normal augmentation. There is normal luminal compressibility, flow, and augmentation in the remaining visualized deep venous structures of the left lower extremity. IMPRESSION: Limited assessment of the mid and distal left superficial femoral veins on grayscale imaging limiting evaluation for nonocclusive DVT compares normal flow and augmentation in these veins without evidence of an occlusive DVT. There is otherwise no evidence of a deep vein thrombosis in the remaini ng visualized deep venous structures left lower extremity.
[2020-09-05 16:30] LABS: ALT (SGPT) 13 U/L (8-55); AST (SGOT) 31 U/L (5-34); Albumin 2.8 g/dL (3.5-5.0); Alkaline Phosphatase 43 U/L (40-110); Anion Gap 19 mmol/L (10-20); BUN (Urea Nitrogen) 51 mg/dL (7.0-18.7); Bilirubin, Total 0.3 mg/dL (0.2-1.2); Calc. Creatinine Clearance 10 mL/min (70-130); Calcium 7.7 mg/dL (7.8-10.44); Carbon Dioxide 21 mmol/L (22-29); Chloride 97 mmol/L (98-107); Glucose 91 mg/dL (70-105); Potassium 4.3 mmol/L (3.5-5.1); Protein, Total 6.8 g/dL (6.0-8.3); Sodium 133 mmol/L (136-145)
[2020-09-05 16:34] LABS: Troponin I 0.058 ng/mL (< 0.028)
--- NOTE | 2020-09-05 17:01 | PRG ---
DATE OF SERVICE: 09/05/2020 SUBJECTIVE: The patient is seen and examined, seems to still be spiking fever. OBJECTIVE: VITAL SIGNS: Temperature of up to 103.2 with a heart rate of 89 to 103, respiratory rate of 20, O2 saturation of 96% to 100% with a blood pressure of 160/67. HEENT: Unremarkable. CARDIOVASCULAR SYSTEM: First and second heart sounds were heard. RESPIRATORY SYSTEM: Clear to auscultation anteriorly with some rales. DIGESTIVE SYSTEM: Revealed a benign abdomen. EXTREMITIES: No peripheral edema. SKIN: No new gross rash. LYMPHATICS: No peripheral lymphadenopathy. LABORATORY DATA: Chemistry showed a potassium of 4.3, bicarb of 21, BUN of 51 with a creatinine of 9.76, calcium 7.7, albumin of 2.8. Procalcitonin of 1.66. IMPRESSION: 1. End-stage renal disease, on hemodialysis. 2. Diabetes mellitus. 3. Respiratory distress in the context of problem #4. 4. COVID pneumonitis. 5. Pulmonary congestion with possible worsening pneumonitis. PLAN: 1. The patient to be dialyzed today with ultrafiltration as tolerated by hemodynamics. 2. Given the persistent fever in this patient despite all broad-spectrum management, we will go ahead and request for Infectious Disease specialist input. 3. Further management will be dependent on the clinical course. I did hear the patient will be receiving convalescent plasma today. Job ID: [id number]
[2020-09-05] MEDS: Dexamethasone 4 MG TAB PO SCH (17:43)
[2020-09-05] MEDS: Cyclobenzaprine 10 MG TAB PO PRN (19:22)
[2020-09-05 19:29] LABS: Troponin I 0.073 ng/mL (< 0.028)
[2020-09-05] MEDS: Promethazine 25 MG TAB PO PRN (19:30)
[2020-09-05] MEDS ORDERED: [UNRECOGNIZED DRUG - REMARK] TOP SCH (21:00)
[2020-09-05] MEDS: Lidocaine 5% Patch TD SCH (21:15)
[2020-09-05] MEDS ORDERED: hydrOXYzine 25 MG/ML VIAL IM SCH (23:15)
[2020-09-06] MEDS: Acetaminophen 500 MG TAB PO PRN (00:19)
[2020-09-06] MEDS: HumaLOG 300 UNITS/3 ML VIAL SC PRN ×3 (06:06→20:59)
--- NOTE | 2020-09-06 06:16 | PDOC.FM ---
- Subjective Subjective: Pt's pain improved overnight with a heating pad. Her anxiety diminished with atarax. Otherwise the patient is doing well today. She does not have chest pain or pressure. She is not anxious currently. She has no questions. She tolerated dialysis yesterday and respiratory status improved afterwards. - Objective Vital Signs & Weight: Vital Signs (12 hours) Temp Pulse Resp BP Pulse Ox 09/06/20 04:14 97.7 F 80 18 102/59 L 91 L 09/06/20 03:07 98.7 F 18 98/61 95 09/06/20 02:52 98.7 F 18 105/68 91 L 09/06/20 01:00 103.3 F H 105 H 18 118/67 93 L 09/06/20 00:19 103.3 F H 09/06/20 00:04 93 L 09/05/20 20:51 99.2 F 102 H 20 149/70 H 93 L 09/05/20 20:00 93 L Weight Weight 81.102 kg Most Recent Monitor Data Heart Rate from ECG 80 I&O: 09/04/20 09/05/20 09/06/20 06:59 06:59 06:59 Intake Total 925 2000 240 Output Total 200 300 Balance 725 1700 240 Result Diagrams: 09/06/20 06:34 09/06/20 06:34 Phys Exam - Physical Examination Constitutional: NAD HEENT: moist MMs, sclera anicteric Neck: no JVD, full ROM Respiratory: no wheezing, no rales, no rhonchi Cardiovascular: RRR, no significant murmur Gastrointestinal: soft, positive bowel sounds Musculoskeletal: no edema, pulses present Neurological: normal sensation, moves all 4 limbs Psychiatric: normal affect, A&O x 3 Skin: no rash, cap refill <2 seconds Dx/Plan (1) ESRD (end stage renal disease) Code(s): N18.6 - END STAGE RENAL DISEASE Status: Acute (2) Fever Code(s): R50.9 - FEVER, UNSPECIFIED Status: Acute (3) N&V (nausea and vomiting) Code(s): R11.2 - NAUSEA WITH VOMITING, UNSPECIFIED Status: Acute (4) Diarrhea Code(s): R19.7 - DIARRHEA, UNSPECIFIED Status: Acute (5) Poor fluid intake Code(s): R63.8 - OTHER SYMPTOMS AND SIGNS CONCERNING FOOD AND FLUID INTAKE Status: Acute (6) DM type 1 (diabetes mellitus, type 1) Status: Chronic Qualifiers: Diabetes mellitus complication status: with kidney complications Chronic kidney disease stage: stage 3 (moderate) - Plan Plan: Pt is a 35 yo female being admitted for COVID pneumonia: # COVID Pneumonia # Acute hypoxic resp failure - Mild disease - requiring 2-3 L NC oxygen overnight. Continue to monitor during day. WIll go ahead and give convalescent plasma today. Continue dexamethasone. Unable to receive remdesivir due to ESRD. - repeat procalcitonin in am - She tends to have O2 desaturations when anxious and elevated temperature. Deleon schedule tylenol. - added ceftriaxone, azithromycin on 09/05/19 for elevated procalcitonin and worsening CXR. Dr. Arauz consulted Dr. Valle as well. - No DVT noted in LLE, EKG WNL # N/V - Continue phenergan, zofran. Will send home with phenergan - Encourage PO intake # Back Pain - continue lidocaine patch, muscle relaxer, heating pad - encourage ambulation # DM Unsure if type 1 vs 2 but is insulin dependent. Diagnosed at age 13. C-Peptide in clinic was elevated. - Will start Novolin N at 15 U BID. Unsure if she is taking 15 U BID or 30 U BID. She does not bring in medications per Dr. Gill. SSI initiated. Continue same dosing although BG was 70 overnight. - hyperglycemia protocol - continue gabapentin # ESRD - Normally MWF. She has been switched to //Tue due to COVID. She has a spot at at [address] Garcia. She has a ride. - Dr. Arauz consulted, appreciate recs # HTN - continue home medications. # HLD - continue home meds # Nicotine abuse - likely making cough worse - will not administer nicotine patch at this time # Hx of Abnormal Pap - follow up with PCP # Anxiety - continue home meds Fluids: PO Diet: Diabetic diet, High protein VTE: Heparin TID Dispo: Admit to medical obs, LOS > 48 hours Addendum - Attending - Attending Attestation Date/Time: 09/06/20 0730 I personally evaluated the patient and discussed the management with Dr. Rivas. I agree with the History, Examination, Assessment and Plan documented above with any addition or exceptions noted below. Patient stable. Continues to have some shortness of breath associated with anxiety when she fevers, but otherwise denies respiratory complaints. She continues to spike fever, but this is not unexpected given her COVID infection. She continues on antibiotics and steroids, and has received plasma. Nephro on board to manage her HD. ID has been consulted by that group to further evaluate her febrile illness, though my suspicion is all part of the normal COVID infection. No other evidence of bacterial infection. 1/2 Bcx positive for bacillus, a most certain contaminant.
[2020-09-06 07:09] LABS: ALT (SGPT) 18 U/L (8-55); AST (SGOT) 40 U/L (5-34); Albumin 3.2 g/dL (3.5-5.0); Alkaline Phosphatase 52 U/L (40-110); Anion Gap 21 mmol/L (10-20); BUN (Urea Nitrogen) 30 mg/dL (7.0-18.7); Bilirubin, Total 0.4 mg/dL (0.2-1.2); Calc. Creatinine Clearance 18 mL/min (70-130); Calcium 8.3 mg/dL (7.8-10.44); Carbon Dioxide 23 mmol/L (22-29); Chloride 94 mmol/L (98-107); Globulin 4.5 g/dL (2.4-3.5); Glucose 206 mg/dL (70-105); Potassium 4.6 mmol/L (3.5-5.1); Protein, Total 7.7 g/dL (6.0-8.3); Sodium 133 mmol/L (136-145)
[2020-09-06 08:06] LABS: Band 2 % (5-11); Hemoglobin 9.4 g/dL (12.0-16.0); Lymphocytes 8 % (21-51); MDiff Complete? YES; Mean Corpuscular HGB CONC 31.2 g/dL (32.0-36.0); Mean Corpuscular Hemoglobin 32.1 pg (27.0-31.0); Mean Platelet Volume 8.3 fL (7.4-10.4); Monocytes 6 % (0-10); Neutrophil 84 % (42-75); Platelet Count 193 thou/uL (130-400); RBC Distribution Width 13.1 % (11.5-14.5); Red Blood Cell (RBC) Count 2.92 mill/uL (4.20-5.40)
[2020-09-06] MEDS: ALPRAZolam 0.25 MG TAB PO SCH ×2 (08:08→20:36)
[2020-09-06] MEDS: Amlodipine 10 MG TAB PO SCH (08:08)
[2020-09-06] MEDS: Heparin 5,000 UNITS/ML VIAL SC SCH ×3 (08:11→20:37)
[2020-09-06] MEDS: Acetaminophen 500 MG TAB PO SCH ×2 (11:42→18:05)
[2020-09-06] MEDS: NPH, Human Insulin Isophane 300 UNIT/3 ML VIAL SC SCH ×2 (11:45→20:37)
--- NOTE | 2020-09-06 15:22 | EKG ---
Test Reason : Blood Pressure : / mmHG Vent. Rate : 108 BPM Atrial Rate : 108 BPM P-R Int : 154 ms QRS Dur : 070 ms QT Int : 324 ms P-R-T Axes : 068 256 075 degrees QTc Int : 434 ms Sinus tachycardia Possible Left atrial enlargement Right superior axis deviation Possible Anteroseptal infarct , age undetermined Abnormal ECG Confirmed by SEVERO NOVAK, MADELINE ([id number]), book or script editor TEZ GANDARA ([id number]) on 09/06/2020 3:21:58 PM Referred By: Confirmed By:MADELINE ELKINS MD
[2020-09-06] MEDS: Pantoprazole 40 MG VIAL IVP SCH (15:44)
[2020-09-06] MEDS: cefTRIAXone\\ROCEPHIN 1 GM in Sodium Chloride 0.9% 100 ML IVPB SCH (15:48)
[2020-09-06] MEDS: [UNRECOGNIZED DRUG - REMARK] TOP SCH (17:15)
[2020-09-06] MEDS: Azithromycin 500 MG in Sodium Chloride 0.9% 250 ML 250 ML IVPB SCH (18:03)
[2020-09-06] MEDS: Dexamethasone 4 MG TAB PO SCH (18:04)
--- NOTE | 2020-09-06 19:37 | PRG ---
DATE OF SERVICE: 09/06/2020 SUBJECTIVE: The patient is seen and examined. Seems to be doing much better. OBJECTIVE: VITAL SIGNS: Noted with the following vital signs; afebrile, temperature 97.8, pulse 78, respiratory rate of 16, O2 saturations of 95% on 2 L, with a blood pressure of 128/75. HEENT: Unremarkable. Moist oral mucosa. Neck was supple. No conjunctival injection. No icterus. CARDIOVASCULAR SYSTEM: First and second heart sounds were heard. RESPIRATORY SYSTEM: Revealed limited rales. DIGESTIVE SYSTEM: Revealed a benign abdomen. SKIN: Did shows some variegated appearance on the abdomen, otherwise unremarkable. IMPRESSION: 1. End-stage renal disease, hemodialysis dependent. 2. Sepsis. 3. COVID pneumonitis, improving. PLAN: 1. The patient was dialyzed yesterday. The next time the patient will be scheduled for dialysis will be on Tuesday. 2. Further management will be dependent on the clinical course. Job ID: [id number]
[2020-09-06] MEDS: Lidocaine 5% Patch TD SCH (20:36)
[2020-09-06] MEDS: Cyclobenzaprine 10 MG TAB PO PRN (20:36)
--- NOTE | 2020-09-06 22:43 | CON ---
DATE OF CONSULTATION: 09/06/2020 REASON FOR CONSULTATION: Fever. HISTORY OF PRESENT ILLNESS: 35-year-old who has a history of type 1 diabetes and end-stage renal disease and severe retinopathy with blindness, who was admitted on September 03 with worsening dyspnea, nausea, vomiting, and fever as well as tachycardia. She is a patient of Dr. Arauz and he saw her in dialysis and referred her for admission. Initial BP 150/70, pulse 115, respirations 25, temperature 103, and saturating 98% on room air. The exam showed clear breath sounds. The heart exam described this tachycardia, but no murmurs. The abdomen was described as normal. Other findings; white cell count 6.9, hemoglobin 11.9, and platelets 213 with 72.7% neutrophils and 14.5% lymphocytes. INR 1.2. Creatinine was 9.6. AST 40. Other liver functions normal. CRP was 3.15 and then 8.82. SARS-CoV PCR positive on September 02 and the chest x-ray showed some cardiomegaly and perihilar left upper lobe central infiltrate. A repeat chest x-ray yesterday showed some worsening of the infiltrates, particularly on the left side. She had a duplex ultrasound looking for DVT, which was negative in the left side. This is a technically limited assessment. Since admission, she has been given ceftriaxone, Decadron, and azithromycin. She continued to be febrile starting on September 03 until today, but now she seems to be defervescing a bit. Currently, Ms. Erickson is quite diaphoretic, but she seems to be feeling better. No headaches. She has complete blindness. No sore throat, odynophagia, or dysphagia. No cough or dyspnea. No chest pain. No abdominal pain. No diarrhea. Not much in terms of urine output. No joint symptoms. No lower extremity symptoms. No neurological symptoms. PAST MEDICAL HISTORY: Includes type 1 diabetes, end-stage renal disease, retinopathy with blindness, hypertension, and detached retina. SOCIAL HISTORY: [place] in the area. Current smoker. ALLERGIES: ACETAMINOPHEN, IBUPROFEN, LISINOPRIL, AND TRAMADOL. CURRENT MEDICATIONS: 1. Xanax. 2. Azithromycin. 3. Rocephin. 4. Decadron. 5. Heparin. 6. Insulin. 7. Metoprolol. 8. Pantoprazole. PHYSICAL EXAMINATION: VITAL SIGNS: Her temperature was 103 up until 1 o'clock a.m. this morning. Now, she has been afebrile since. She had stretches of being afebrile before, although her O2 saturations ranged from 91 to 95. They seem to be trending downwards since yesterday. She is on 2 L nasal cannula. GENERAL: She has acne scars in the facial area and still functional AV fistula in the left upper extremity and does not have a Estrada catheter. She still voids in the diaper or in the toilet. HEENT: The left eye is opaque with intraocular media. The right side pupillary reactions are limited. The sclera is white. Oral cavity normal. NECK: Without jugular vein distention. No thyromegaly. LUNGS: Bibasilar inspiratory crackles up to about a third to a half of right and left lungs. HEART: S1 and S2. Regular rate. ABDOMEN: Soft. Not distended or tender. No bladder distention. MUSCULOSKELETAL: No joint inflammatory activity. VASCULAR: I could not feel popliteal or dorsalis pedis pulses. EXTREMITIES: No edema. NEUROLOGIC: She is able to move extremities on command. She is oriented, follows commands, and is totally blind. The latest white cell count 8.0, hemoglobin 9.4, platelets 193, 84% neutrophils, and lymphocytes are diminished at 0.7. INR 1.2 and creatinine 5.75. ASSESSMENT: 1. End-stage renal disease secondary to type 1 diabetes/CoV2 infection with pneumonia. This appears to be in its initial stages, probably within the 7 days of disease onset. 2. Fever secondary to SARS-CoV2 infection. DISCUSSION: The patient is at high risk for further deterioration. Her O2 saturations started to go down and she is going to second week of illness. She is not eligible for Remdesivir because of her renal function and the only options for management include corticosteroids and oxygen supplementation. Plasma therapy is not effective as shown in multiple trials. Regarding antimicrobials, I would advise discontinuation of azithromycin and Rocephin since the rates of bacterial superinfection in SARS-CoV-2 disease is quite low. The patient is asking to be discharged home, but I would postpone any discharge planning for now since there is a high risk of deterioration in the next few days. Job ID: [id number]
[2020-09-07] MEDS: Acetaminophen 500 MG TAB PO SCH ×4 (00:11→17:30)
[2020-09-07] MEDS: diphenhydrAMINE 25 MG CAP PO PRN (00:12)
--- NOTE | 2020-09-07 05:52 | PDOC.FM ---
- Subjective Subjective: Pt is febrile during exam. She has pain at this time as well. She is upset she is pain too. She is anxious. - Objective Vital Signs & Weight: Vital Signs (12 hours) Temp Pulse Resp BP Pulse Ox 09/07/20 04:00 99.0 F 87 18 111/56 L 95 09/06/20 21:30 98 09/06/20 21:00 97.7 F 74 20 115/76 98 Weight Weight 81.102 kg Most Recent Monitor Data Heart Rate from ECG 80 I&O: 09/05/20 09/06/20 09/07/20 06:59 06:59 06:59 Intake Total 2000 240 Output Total 300 Balance 1700 240 Result Diagrams: 09/07/20 08:10 09/07/20 05:31 Phys Exam - Physical Examination upset, in discomfort HEENT: moist MMs, sclera anicteric Neck: no JVD, full ROM Respiratory: no wheezing, clear to auscultation bilateral Cardiovascular: no significant murmur tachycardic Gastrointestinal: soft, non-tender Musculoskeletal: no edema, pulses present Psychiatric: A&O x 3 Dx/Plan (1) ESRD (end stage renal disease) Code(s): N18.6 - END STAGE RENAL DISEASE Status: Acute (2) Fever Code(s): R50.9 - FEVER, UNSPECIFIED Status: Acute (3) N&V (nausea and vomiting) Code(s): R11.2 - NAUSEA WITH VOMITING, UNSPECIFIED Status: Acute (4) Diarrhea Code(s): R19.7 - DIARRHEA, UNSPECIFIED Status: Acute (5) Poor fluid intake Code(s): R63.8 - OTHER SYMPTOMS AND SIGNS CONCERNING FOOD AND FLUID INTAKE Status: Acute (6) DM type 1 (diabetes mellitus, type 1) Status: Chronic Qualifiers: Diabetes mellitus complication status: with kidney complications Chronic kidney disease stage: stage 3 (moderate) - Plan Plan: Pt is a 35 yo female being admitted for COVID pneumonia: # COVID Pneumonia - mild disease - continue oxygen supplementation - continue dex - conv plasma administered - schedule tylenol to prevent discomfort # N/V - Continue phenergan, zofran. Will send home with phenergan - Good PO intake # Back Pain - continue lidocaine patch, muscle relaxer, heating pad - encourage ambulation - worse with fever # DM Unsure if type 1 vs 2 but is insulin dependent. Diagnosed at age 13. C-Peptide in clinic was elevated. - Increase to Novolin 20 U BID - hyperglycemia protocol - continue gabapentin # ESRD - Normally MWF. She has been switched to //Tue due to COVID. She has a spot at [facility] at [address] Garcia. She has a ride. - Dr. Arauz consulted, appreciate recs # HTN - continue home medications. # HLD - continue home meds # Nicotine abuse - likely making cough worse - will not administer nicotine patch at this time # Hx of Abnormal Pap - follow up with PCP # Anxiety - continue home meds Fluids: PO Diet: Diabetic diet, High protein VTE: Heparin TID Dispo: Admit to medical obs, LOS > 48 hours Addendum - Attending - Attending Attestation Date/Time: 09/07/20 2085 I personally evaluated the patient and discussed the management with Dr. Rivas. I agree with the History, Examination, Assessment and Plan documented above with any addition or exceptions noted below. Patient here with respiratory symptoms and mild hypoxia from COVID infection. She is certainly high risk for poor outcomes given her comorbid conditions. She has received plasma and is on steroids. Not candidate for other therapies given her ESRD status. ID on board. Nephro managing HD. Continue to wean O2. Stop abx given no evidence of bacterial infection.
[2020-09-07 06:27] LABS: ALT (SGPT) 13 U/L (8-55); AST (SGOT) 28 U/L (5-34); Alkaline Phosphatase 49 U/L (40-110); Anion Gap 21 mmol/L (10-20); BUN (Urea Nitrogen) 53 mg/dL (7.0-18.7); Bilirubin, Total 0.4 mg/dL (0.2-1.2); Calc. Creatinine Clearance 13 mL/min (70-130); Calcium 8.3 mg/dL (7.8-10.44); Carbon Dioxide 20 mmol/L (22-29); Chloride 94 mmol/L (98-107); Globulin 4.5 g/dL (2.4-3.5); Glucose 244 mg/dL (70-105); Potassium 4.4 mmol/L (3.5-5.1); Protein, Total 7.5 g/dL (6.0-8.3); Sodium 131 mmol/L (136-145)
[2020-09-07] MEDS: Pantoprazole 40 MG VIAL IVP SCH (07:34)
[2020-09-07] MEDS: Heparin 5,000 UNITS/ML VIAL SC SCH ×3 (07:35→21:23)
[2020-09-07] MEDS: Amlodipine 10 MG TAB PO SCH (07:35)
[2020-09-07] MEDS: Promethazine 25 MG TAB PO PRN (07:35)
[2020-09-07] MEDS: NPH, Human Insulin Isophane 300 UNIT/3 ML VIAL SC SCH ×2 (07:36→21:24)
[2020-09-07] MEDS: ALPRAZolam 0.25 MG TAB PO SCH ×2 (07:40→20:28)
[2020-09-07] MEDS: [UNRECOGNIZED DRUG - REMARK] TOP SCH (08:00)
[2020-09-07 08:38] LABS: Hemoglobin 9.3 g/dL (12.0-16.0); Mean Corpuscular HGB CONC 33.6 g/dL (32.0-36.0); Mean Corpuscular Hemoglobin 34.2 pg (27.0-31.0); Mean Platelet Volume 8.5 fL (7.4-10.4); Platelet Count 221 thou/uL (130-400); RBC Distribution Width 13.1 % (11.5-14.5); White Blood Cell (WBC) Count 10.1 thou/uL (4.8-10.8)
[2020-09-07 10:06] LABS: #Lymphocytes 0.7 thou/uL (1.20-3.40); #Monocytes 0.6 thou/uL (0.11-0.59); #Neutrophils 8.8 thou/uL (1.40-6.50); %Eosinophils 0.1 % (0.0-10.0); %Lymphocytes 7.2 % (21.0-51.0); %Neutrophils 86.7 % (42.0-75.0); Band 4 % (5-11); Lymphocytes 3 % (21-51); MDiff Complete? YES; Monocytes 5 % (0-10); Neutrophil 88 % (42-75); Platelet Morphology Comment Appears Adequate; RBC Morphology Normal
[2020-09-07] MEDS ORDERED: Vancomycin HCl 1.25 GM in Sodium Chloride 0.9% 250 ML 250 ML IVPB SCH ×2 (16:45→17:15)
[2020-09-07] MEDS ORDERED: Vancomycin Sliding Scale 1 EACH FS ONE (17:15)
[2020-09-07] MEDS ORDERED: Vancomycin HCl 500 MG in Sodium Chloride 0.9% 100 ML IVPB SCH (17:15)
[2020-09-07] MEDS ORDERED: Vancomycin 1 GM in Premix Bag 1 BAG IVPB SCH (17:15)
[2020-09-07] MEDS ORDERED: HOLD VANCOMYCIN FOR LEVEL >20 FS SCH (17:15)
[2020-09-07] MEDS ORDERED: Vancomycin HCl 750 MG in Sodium Chloride 0.9% 250 ML 250 ML IVPB SCH (17:15)
[2020-09-07] MEDS: Dexamethasone 4 MG TAB PO SCH (17:30)
[2020-09-07] MEDS: cefTRIAXone\\ROCEPHIN 2 GM in Sodium Chloride 0.9% 100 ML IVPB SCH (17:31)
--- NOTE | 2020-09-07 17:48 | PRG ---
DATE OF SERVICE: 09/07/2020 SUBJECTIVE: Ms. Erickson is lying on her left lateral decubitus, not feeling too well. Still having fevers, little bit of headaches. No sore throat. Had been coughing, but not as much at this time. No abdominal pain. Had some loose stools earlier. No genitourinary symptoms. No joint symptoms. OBJECTIVE: VITAL SIGNS: T-max 102.8, blood pressure 120/60, heart rate is 98, saturating 92% on 1 L nasal cannula. LUNGS: With scattered inspiratory crackles, right and left side. HEART: S1 and S2 without murmurs. ABDOMEN: Soft, not distended. EXTREMITIES: No joint inflammatory activity. LABORATORY DATA: White cell count 10.1, hemoglobin 9.3, platelets 221 with 88% neutrophils. Liver profile normal. Albumin 3.0. She is currently on alprazolam, Norvasc, Decadron, promethazine. ASSESSMENT AND DISCUSSION: End-stage renal disease, type 1 diabetes, SARS-CoV-2 infection with pneumonia. Still within the first week of disease onset, fever with recurrence and with a high risk of worsening of the pneumonic process. The recurrence of fever even in the phase of SARS-CoV-2 after initiation of Decadron is concerning for the possibility of a secondary infection. We will add vancomycin, sliding scale, and Rocephin to her regimen. Job ID: [id number]
[2020-09-07] MEDS: Cyclobenzaprine 10 MG TAB PO PRN (20:28)
[2020-09-07] MEDS: Lidocaine 5% Patch TD SCH (20:29)
[2020-09-07] MEDS ORDERED: hydrOXYzine 25 MG TAB PO SCH (23:30)
[2020-09-08] MEDS: Acetaminophen 500 MG TAB PO SCH ×4 (02:30→18:42)
--- NOTE | 2020-09-08 05:57 | PRG ---
DATE OF SERVICE: 09/07/2020 SUBJECTIVE: This is a 35-year-old female patient with COVID pneumonitis, who unfortunately started spiking fever again today. OBJECTIVE: VITAL SIGNS: Temperature maximum of 102.5, pulse of 93, respiratory rate of 16, O2 saturation 92% with a blood pressure of 127/67. HEENT: Unremarkable. CARDIOVASCULAR SYSTEM: First and second heart sounds were heard. RESPIRATORY SYSTEM: Clear to auscultation. DIGESTIVE SYSTEM: Revealed a benign abdomen with positive bowel sounds. EXTREMITIES: No peripheral edema. SKIN: No new gross rash. LYMPHATICS: No peripheral lymphadenopathy. IMPRESSION: 1. End-stage renal disease. 2. COVID pneumonitis. 3. Recurrent fever, query cause infection. 4. Diabetes mellitus. PLAN: 1. The patient to continue with current regimen of dialysis of Tuesday, Tuesday, and Tuesday schedule. 2. Further management dependent on the clinical course and recommendation from the Primary Service and Infectious Disease Service. Job ID: [id number]
--- NOTE | 2020-09-08 07:07 | PDOC.FM ---
- Subjective Subjective: Pt is doing well. No complications. She is afebrile at this time and does not have current pain or anxiety. - Objective Vital Signs & Weight: Vital Signs (12 hours) Temp Pulse Resp BP Pulse Ox 09/08/20 03:56 97.6 F 75 18 125/76 93 L 09/07/20 23:10 97.9 F 92 20 92 L 09/07/20 21:30 93 L 09/07/20 21:00 100.1 F H 87 18 137/85 93 L Weight Weight 81.102 kg Most Recent Monitor Data Heart Rate from ECG 80 I&O: 09/07/20 09/08/20 09/09/20 06:59 06:59 06:59 Intake Total 450 1610 Balance 450 1610 Result Diagrams: 09/07/20 08:10 09/07/20 05:31 Phys Exam - Physical Examination Constitutional: NAD HEENT: moist MMs, sclera anicteric bilateral crackles Cardiovascular: RRR, no significant murmur Gastrointestinal: soft, positive bowel sounds Musculoskeletal: no edema, pulses present Neurological: normal sensation, moves all 4 limbs Lymphatic: no nodes Psychiatric: normal affect, A&O x 3 Skin: no rash, cap refill <2 seconds Dx/Plan (1) ESRD (end stage renal disease) Code(s): N18.6 - END STAGE RENAL DISEASE Status: Acute (2) Fever Code(s): R50.9 - FEVER, UNSPECIFIED Status: Acute (3) N&V (nausea and vomiting) Code(s): R11.2 - NAUSEA WITH VOMITING, UNSPECIFIED Status: Acute (4) Diarrhea Code(s): R19.7 - DIARRHEA, UNSPECIFIED Status: Acute (5) Poor fluid intake Code(s): R63.8 - OTHER SYMPTOMS AND SIGNS CONCERNING FOOD AND FLUID INTAKE Status: Acute (6) DM type 1 (diabetes mellitus, type 1) Status: Chronic Qualifiers: Diabetes mellitus complication status: with kidney complications Chronic kidney disease stage: stage 3 (moderate) - Plan Plan: Pt is a 35 yo female being admitted for COVID pneumonia: # COVID Pneumonia - mild disease - continue oxygen supplementation - continue dex - conv plasma administered - schedule tylenol to prevent discomfort - Dr. Valle consulted # N/V - Continue phenergan, zofran. Will send home with phenergan - Good PO intake # Back Pain - continue lidocaine patch, muscle relaxer, heating pad - encourage ambulation - worse with fever # DM Unsure if type 1 vs 2 but is insulin dependent. Diagnosed at age 13. C-Peptide in clinic was elevated. - Increase to Novolin 20 U BID - hyperglycemia protocol - continue gabapentin # ESRD - Normally MWF. She has a spot at at [address] Garcia. She has a ride. - Dr. Arauz consulted, appreciate recs # HTN - continue home medications. # HLD - continue home meds # Nicotine abuse - likely making cough worse - will not administer nicotine patch at this time # Hx of Abnormal Pap - follow up with PCP # Anxiety - continue home meds Fluids: PO Diet: Diabetic diet, High protein VTE: Heparin TID Dispo: Admit to medical obs, LOS > 48 hours Addendum - Attending - Attending Attestation Date/Time: 09/08/20 0429 I personally evaluated the patient and discussed the management with Dr. Rivas I agree with the History, Examination, Assessment and Plan documented above with any addition or exceptions noted below. 35 yo female admitted for acute respiratory distress due to COVID PNA Improving. No longer requiring O2. Still severe fatigue and dyspnea with activity. Not able to care for self at home. No family care-givers. Unfunded and not able to go to rehab. Not yet ready for d/c. No fevers today. PT/OT to continue work with patient. Procal and ddimer still increasing. Will trend in AM to see if improving. Continue antibx at this time. Need to consider transition to PO in AM. Kristie
[2020-09-08] MEDS: ALPRAZolam 0.25 MG TAB PO SCH ×2 (08:37→21:22)
[2020-09-08] MEDS: Heparin 5,000 UNITS/ML VIAL SC SCH ×3 (08:40→21:22)
[2020-09-08] MEDS: Amlodipine 10 MG TAB PO SCH (08:40)
[2020-09-08] MEDS: Pantoprazole 40 MG VIAL IVP SCH ×2 (09:02→15:22)
[2020-09-08] MEDS: [UNRECOGNIZED DRUG - REMARK] TOP SCH (09:03)
[2020-09-08] MEDS: NPH, Human Insulin Isophane 300 UNIT/3 ML VIAL SC SCH ×2 (09:03→21:47)
[2020-09-08] MEDS: HumaLOG 300 UNITS/3 ML VIAL SC PRN (12:37)
--- NOTE | 2020-09-08 17:08 | PRG ---
DATE OF SERVICE: 09/08/2020 SUBJECTIVE: Ms. Erickson is doing much better today. She is only on 1 L nasal cannula, saturating at 100%. Not much cough. No chest pain. No sputum production. No abdominal pain. She defervesced since yesterday. I do not want to say too soon because she has had those episodes before, where she had a prolonged stretch of no fever and then all of a sudden, but this time seems to be longer and she appears really well, well disposed. OBJECTIVE: LUNGS: Still with inspiratory crackles, right and left side. HEART: S1 and S2, regular rate. ABDOMEN: Soft, not distended. LABORATORY DATA: White cell count 10.1, hemoglobin 9.3. Microbiology with negative blood culture at 48 hours. ASSESSMENT AND DISCUSSION: End-stage renal disease; type 1 diabetes; SARS-CoV-2 infection with pneumonia, this is the 9th day of illness. All of a sudden, she has turned around and is feeling much better, saturating only on 1 L. The fever I still believe is due to SARS-CoV-2 infection and blood cultures are negative. So, my intention is not to give her any more antimicrobial therapy. Maybe consider discharge planning tomorrow, although it may be worthwhile to wait another 2 or 3 days to make sure that we are not going to have a readmission. Job ID: [id number]
--- NOTE | 2020-09-08 18:33 | PRG ---
DATE OF SERVICE: 09/08/2020 OBJECTIVE: VITAL SIGNS: The patient noted with the following vital signs. Afebrile, temperature 97.4, pulse 64, respiratory rate of 20, O2 saturation of 98% with a blood pressure 103/54. HEENT: Unremarkable. CARDIOVASCULAR SYSTEM: First and second heart sounds were heard. RESPIRATORY SYSTEM: Clear to auscultation. DIGESTIVE SYSTEM: Revealed a benign abdomen. EXTREMITIES: No peripheral edema. SKIN: No new gross rash. LYMPHATICS: No peripheral lymphadenopathy. IMPRESSION: 1. End-stage renal disease, on dialysis. 2. COVID pneumonitis. 3. Diabetes mellitus. PLAN: 1. The patient seems to be doing much better today. We will continue with hemodialysis. The patient is due for dialysis today with ultrafiltration as tolerated by hemodynamics. 2. Further management will be dependent on the clinical course. Job ID: [id number]
[2020-09-08 18:39] LABS: Anion Gap 25 mmol/L (10-20); BUN (Urea Nitrogen) 91 mg/dL (7.0-18.7); Calc. Creatinine Clearance 9 mL/min (70-130); Calcium 8.2 mg/dL (7.8-10.44); Carbon Dioxide 21 mmol/L (22-29); Chloride 94 mmol/L (98-107); Glucose 164 mg/dL (70-105); Potassium 4.8 mmol/L (3.5-5.1); Sodium 135 mmol/L (136-145)
[2020-09-08 18:41] LABS: Hemoglobin 9.3 g/dL (12.0-16.0); MDiff Complete? YES; Mean Corpuscular Hemoglobin 33.1 pg (27.0-31.0); Mean Platelet Volume 9.1 fL (7.4-10.4); Platelet Count 305 thou/uL (130-400); RBC Distribution Width 13.3 % (11.5-14.5); Red Blood Cell (RBC) Count 2.81 mill/uL (4.20-5.40); White Blood Cell (WBC) Count 11.4 thou/uL (4.8-10.8)
[2020-09-08] MEDS: Dexamethasone 4 MG TAB PO SCH (18:41)
[2020-09-08 18:42] LABS: Band 13 % (5-11); Lymphocytes 8 % (21-51); Macrocytosis SLIGHT = 6-15 cells (100X) (0-5/hpf); Metamyelocyte 1 % (0-0); Monocytes 10 % (0-10); Neutrophil 68 % (42-75); Platelet Morphology Comment Appears Adequate; Polychromasia SLIGHT = 2-3 cells (100X) (0-2/hpf)
[2020-09-08] MEDS: cefTRIAXone\\ROCEPHIN 2 GM in Sodium Chloride 0.9% 100 ML IVPB SCH (21:21)
[2020-09-08] MEDS: Lidocaine 5% Patch TD SCH (21:23)
[2020-09-08] MEDS: diphenhydrAMINE 25 MG CAP PO PRN (23:17)
[2020-09-08] MEDS: Cyclobenzaprine 10 MG TAB PO PRN (23:17)
[2020-09-09] MEDS: Acetaminophen 500 MG TAB PO SCH ×4 (01:24→17:28)
[2020-09-09 06:57] LABS: Anion Gap 22 mmol/L (10-20); BUN (Urea Nitrogen) 45 mg/dL (7.0-18.7); Calc. Creatinine Clearance 16 mL/min (70-130); Calcium 8.1 mg/dL (7.8-10.44); Carbon Dioxide 21 mmol/L (22-29); Chloride 95 mmol/L (98-107); Glucose 266 mg/dL (70-105); Potassium 4.9 mmol/L (3.5-5.1); Sodium 133 mmol/L (136-145)
[2020-09-09 06:59] LABS: Hemoglobin 10.4 g/dL (12.0-16.0); Mean Corpuscular HGB CONC 33.6 g/dL (32.0-36.0); Mean Corpuscular Hemoglobin 34.5 pg (27.0-31.0); Mean Platelet Volume 9.3 fL (7.4-10.4); Platelet Count 276 thou/uL (130-400); RBC Distribution Width 13.3 % (11.5-14.5); Red Blood Cell (RBC) Count 3.01 mill/uL (4.20-5.40); White Blood Cell (WBC) Count 12.1 thou/uL (4.8-10.8)
[2020-09-09 07:29] LABS: Band 5 % (5-11); Lymphocytes 9 % (21-51); MDiff Complete? YES; Metamyelocyte 2 % (0-0); Monocytes 6 % (0-10); Myelocyte 1 % (0-0); Neutrophil 77 % (42-75); Nucleated RBC 1 % (0); Platelet Morphology Comment Appears Adequate; Polychromasia SLIGHT = 2-3 cells (100X) (0-2/hpf)
--- NOTE | 2020-09-09 07:31 | PDOC.FM ---
- Subjective Subjective: Pt is doing well today. She has no complaints. She tolerating no oxygen therapy and states she walked with PT yesterday not requiring oxygen. She has not have fevers in > 24 hours. - Objective Vital Signs & Weight: Vital Signs (12 hours) Temp Pulse Resp BP Pulse Ox 09/09/20 04:20 98.3 F 90 18 106/63 95 09/09/20 00:00 97.9 F 95 20 97/62 93 L 09/08/20 20:00 97.4 F L 78 20 113/58 L 96 09/08/20 19:33 96 Weight Weight 81.102 kg Most Recent Monitor Data Heart Rate from ECG 80 I&O: 09/08/20 09/09/20 09/10/20 06:59 06:59 06:59 Intake Total 1610 1340 Balance 1610 1340 Result Diagrams: 09/09/20 05:47 09/09/20 05:47 Phys Exam - Physical Examination Constitutional: NAD HEENT: moist MMs, sclera anicteric Neck: no JVD, full ROM Respiratory: no wheezing, clear to auscultation bilateral Cardiovascular: RRR, no significant murmur Gastrointestinal: soft, non-tender, positive bowel sounds Musculoskeletal: no edema, pulses present Psychiatric: normal affect, A&O x 3 Dx/Plan (1) ESRD (end stage renal disease) Code(s): N18.6 - END STAGE RENAL DISEASE Status: Acute (2) Fever Code(s): R50.9 - FEVER, UNSPECIFIED Status: Acute (3) N&V (nausea and vomiting) Code(s): R11.2 - NAUSEA WITH VOMITING, UNSPECIFIED Status: Acute (4) Diarrhea Code(s): R19.7 - DIARRHEA, UNSPECIFIED Status: Acute (5) Poor fluid intake Code(s): R63.8 - OTHER SYMPTOMS AND SIGNS CONCERNING FOOD AND FLUID INTAKE Status: Acute (6) DM type 1 (diabetes mellitus, type 1) Status: Chronic Qualifiers: Diabetes mellitus complication status: with kidney complications Chronic kidney disease stage: stage 3 (moderate) - Plan Plan: Pt is a 35 yo female being admitted for COVID pneumonia: # COVID Pneumonia - mild disease - not requiring oxygen - continue dex - conv plasma administered - schedule tylenol to prevent discomfort - Dr. Valle consulted - will discuss discharging today with Dr. Valle and Dr. Arauz # N/V - Continue phenergan, zofran. Will send home with phenergan - Good PO intake # DM Unsure if type 1 vs 2 but is insulin dependent. Diagnosed at age 13. C-Peptide in clinic was elevated. - Increase to Novolin 20 U BID - hyperglycemia protocol - continue gabapentin # ESRD - Normally MWF. She has a spot at at [address] Garcia. She has a ride. Will discuss with Dr. Cedillo - Dr. Arauz consulted, appreciate recs # HTN - continue home medications. # HLD - continue home meds # Nicotine abuse - likely making cough worse - will not administer nicotine patch at this time # Hx of Abnormal Pap - follow up with PCP # Anxiety - continue home meds Fluids: PO Diet: Diabetic diet, High protein VTE: Heparin TID Dispo: Admit to medical obs, LOS > 48 hours Addendum - Attending - Attending Attestation Date/Time: 09/09/20 1217 I personally evaluated the patient and discussed the management with Dr. Rivas. I agree with the History, Examination, Assessment and Plan documented above with any addition or exceptions noted below. Patient overall doing improved. She has been >24 hours afebrile. ID has recommended cessation of abx. Awaiting further recommendations from ID, and ensuring that Nephro has her outpatient HD arranged appropriately and we will work to discharge later if she can remain off O2.
[2020-09-09] MEDS: ALPRAZolam 0.25 MG TAB PO SCH ×2 (07:48→20:26)
[2020-09-09] MEDS: Amlodipine 10 MG TAB PO SCH (07:49)
[2020-09-09] MEDS: Heparin 5,000 UNITS/ML VIAL SC SCH ×3 (07:49→20:26)
[2020-09-09] MEDS: NPH, Human Insulin Isophane 300 UNIT/3 ML VIAL SC SCH ×2 (07:49→20:26)
[2020-09-09] MEDS: Pantoprazole 40 MG VIAL IVP SCH (07:49)
[2020-09-09] MEDS: [UNRECOGNIZED DRUG - REMARK] TOP SCH (08:00)
--- NOTE | 2020-09-09 10:27 | EKG ---
Test Reason : Blood Pressure : / mmHG Vent. Rate : 096 BPM Atrial Rate : 096 BPM P-R Int : 148 ms QRS Dur : 076 ms QT Int : 344 ms P-R-T Axes : 057 084 053 degrees QTc Int : 434 ms Normal sinus rhythm Septal infarct (cited on or before 02-SEP-2020) Abnormal ECG When compared with ECG of 02-SEP-2020 13:31, (Unconfirmed) Questionable change in QRS axis Confirmed by Mason CONNOLLY ([id number]) on 09/09/2020 10:26:32 AM Referred By: VINCE Ritter Confirmed By:Mason CONNOLLY
[2020-09-09] MEDS: HumaLOG 300 UNITS/3 ML VIAL SC PRN ×3 (12:29→20:27)
[2020-09-09] MEDS: cefTRIAXone\\ROCEPHIN 2 GM in Sodium Chloride 0.9% 100 ML IVPB SCH (17:26)
[2020-09-09] MEDS: Dexamethasone 4 MG TAB PO SCH (17:27)
[2020-09-09] MEDS ORDERED: Vancomycin HCl 1.25 GM in Sodium Chloride 0.9% 250 ML 250 ML IVPB SCH (19:00)
--- NOTE | 2020-09-09 19:48 | PRG ---
DATE OF SERVICE: 09/09/2020 OBJECTIVE: VITAL SIGNS: The patient noted with the following vital signs; afebrile, temperature 97.5, pulse 72, respiratory rate , O2 saturation of 95%, blood pressure 139/77. HEENT: Unremarkable. CARDIOVASCULAR SYSTEM: First and second heart sounds were heard. RESPIRATORY SYSTEM: Clear to auscultation. DIGESTIVE SYSTEM: Revealed a benign abdomen. Positive bowel sounds. EXTREMITIES: No peripheral edema. SKIN: No new gross rash. LYMPHATICS: No peripheral lymphadenopathy. LABORATORY INVESTIGATION: Showed a hemoglobin of 10.4. Chemistry showed creatinine of BUN of 45. IMPRESSION: 1. End-stage renal disease, on dialysis. 2. COVID pneumonitis. 3. Respiratory failure. 4. Diabetes mellitus type 1. PLAN: 1. The patient to receive an extra dose of vancomycin of 750 mg today as patient was given vancomycin prior to last dialysis. 2. Renally dose all other medications. 3. Further management to be dependent on the clinical course. Job ID: [id number]
[2020-09-09 19:54] VITALS: BP 114/73; TEMP 97.9
[2020-09-09] MEDS: Lidocaine 5% Patch TD SCH (20:26)
== END 2020-09-09 21:55 | disposition home or self-care (01) | DRG 177 ==
LOC: ERS 11:31 → T4-A 13:45 → INTOOBSV 13:45 → OBSVTOIN 09-03 17:31
PROVIDERS: ADMIT Student in an Organized Health Care Education/Training Program; ATTEND Student in an Organized Health Care Education/Training Program
PROC: 8E0ZXY6 Isolation (ICD-10-PCS; principal; 2020-09-03)
PROC: 5A1D70Z Performance of Urinary Filtration, Intermittent, Less than 6 Hours Per Day (ICD-10-PCS; 2020-09-04)
PROC: XW13325 Transfusion of Convalescent Plasma (Nonautologous) into Peripheral Vein, Percutaneous Approach, New Technology Group 5 (ICD-10-PCS; 2020-09-06)
DX: U07.1 COVID-19 (principal); N18.6 End stage renal disease; J12.82 Pneumonia due to coronavirus disease 2019; J96.01 Acute respiratory failure with hypoxia; D63.1 Anemia in chronic kidney disease; F17.210 Nicotine dependence, cigarettes, uncomplicated; F41.9 Anxiety disorder, unspecified; E10.22 Type 1 diabetes mellitus with diabetic chronic kidney disease; H54.40 Blindness, one eye, unspecified eye; E86.0 Dehydration; M54.9 Dorsalgia, unspecified; G89.29 Other chronic pain; I10 Essential (primary) hypertension; E78.5 Hyperlipidemia, unspecified; R19.7 Diarrhea, unspecified; Z88.5 Allergy status to narcotic agent; Z99.2 Dependence on renal dialysis; Z88.6 Allergy status to analgesic agent; Z88.8 Allergy status to other drugs, medicaments and biological substances; Z79.4 Long term (current) use of insulin; Z79.899 Other long term (current) drug therapy
CPT/HCPCS: 0240U; 36415; 36416; 36430; 71045; 80048; 80053; 80069; 80202; 82550; 82728; 83605; 83615; 83880; 84145; 84484; 85025; 85379; 85384; 85610; 85730; 86140; 86850; 86900; 86901; 87040; 87149; 90935; 93005; 93010; 96365; 96366; 96367; 96368; 96372; 96375; 96376; C9113; G0257; G0378; J0456; J0692; J0696; J1644; J1815; J1956; J2270; J2550; J3370; J3410; J3490; J7050; J8540; P9017; Q0162; Q0163; Q0169

== ENCOUNTER 2020-09-20 11:05 | Inpatient (IN) | payer MEDICARE ==
[2020-09-20] MEDS ORDERED: Morphine 4 MG/ML VIAL ONE (12:05)
[2020-09-20 12:25] LABS: #Eosinphils 0.1 thou/uL (0.0-0.7); #Lymphocytes 1.5 thou/uL (1.20-3.40); #Monocytes 0.8 thou/uL (0.11-0.59); #Neutrophils 5.5 thou/uL (1.40-6.50); %Basophils 0.1 % (0.0-1.0); %Lymphocytes 19.4 % (21.0-51.0); %Monocytes 9.8 % (0.0-10.0); %Neutrophils 69.7 % (42.0-75.0); Hemoglobin 7.5 g/dL (12.0-16.0); Mean Corpuscular HGB CONC 32.8 g/dL (32.0-36.0); Mean Corpuscular Hemoglobin 33.8 pg (27.0-31.0); Platelet Count 274 thou/uL (130-400); RBC Distribution Width 14.3 % (11.5-14.5); Red Blood Cell (RBC) Count 2.21 mill/uL (4.20-5.40); White Blood Cell (WBC) Count 7.8 thou/uL (4.8-10.8)
--- NOTE | 2020-09-20 12:40 | RAD ---
XR Chest 1 View Portable History: Low oxygen saturation Comparison: Radiograph September 05, 2020 Findings: Relative to the prior examination the lung aeration is improved. No pneumothorax. No effusi on. Heart size is enlarged. Endovascular graft left axilla. Impression: Improved lung aeration from the comparison September 05, 2020 exam. Mild continued lung opac ities.
[2020-09-20 12:48] LABS: ALT (SGPT) 20 U/L (8-55); AST (SGOT) 29 U/L (5-34); Albumin 3.4 g/dL (3.5-5.0); Alkaline Phosphatase 83 U/L (40-110); Anion Gap 20 mmol/L (10-20); BUN (Urea Nitrogen) 34 mg/dL (7.0-18.7); Bilirubin, Total 0.8 mg/dL (0.2-1.2); Calc. Creatinine Clearance 0 mL/min (70-130); Carbon Dioxide 27 mmol/L (22-29); Chloride 93 mmol/L (98-107); Globulin 4.8 g/dL (2.4-3.5); Glucose 211 mg/dL (70-105); Lipase 70 U/L (8-78); Potassium 5.6 mmol/L (3.5-5.1); Protein, Total 8.2 g/dL (6.0-8.3); Sodium 134 mmol/L (136-145)
[2020-09-20] MEDS ORDERED: Ondansetron PF 4 MG/2 ML Vial ONE ×2 (12:52→14:32)
--- NOTE | 2020-09-20 13:40 | PDOC.FPRHP ---
- History of Present Illness Chief Complaint: weakness History of Present Illness: Pt is a 35 yo F with PMH Diabetes diagnosed at age 13 currently controlled with insulin, ESRD on dialysis //Tue, HTN, anemia, HLD, nicotine abuse, anxiety, blindness who presents with weakness. Patient was recently hospitalized with CO VID, she tested positive on 09/02. Patient states on Tuesday her symptoms of weakness worsened. She thinks she had too much fluid taken off of her at dialysis. She was drinking alot of fluids to "try to get her weight back up". This morning, she tried to get out of bed and her "legs gave out" and fell because she felt so weak. This has happened several times this weak where she could not get up by herself. She is dizzy and lightheaded in the morning when she wakes up. She endorses improvement of respiratory symptoms since discharged from hospital, but does endorse orthopnea. She endorses watery stools, CARVALHO, and nausea with vomiting. She denies anyone reporting blood in either diarrhea or vomit. She has anemia of chronic disease and takes iron. She lives at home with her boyfriend and able to do her ADLs independently before diagnosis of COVID. Patient does make urine still. She endorses dysuria that started last night. Denies hematuria. Has regular periods, states they are "very" heavy and last 5-6 days. She soaks several heavy duty pads a day. She has a rash she states is from tylenol ED Course: 4mg Zofran, Morphine 4mg - Allergies/Adverse Reactions Allergies Allergy/AdvReac Type Severity Reaction Status Date / Time acetaminophen [From Tylenol] Allergy Verified 09/20/20 16:59 ibuprofen Allergy Verified 09/20/20 16:59 lisinopril Allergy Verified 04/07/20 15:31 tramadol Allergy Verified 04/07/20 15:31 - Home Medications Medication Instructions Recorded Confirmed Type ALPRAZolam 0.25 mg PO BID PRN 09/02/20 09/20/20 History Amlodipine Besylate [amLODIPine 10 mg PO DAILY 09/02/20 09/20/20 History Besylate] Esomeprazole Magnesium [Nexium 40 mg PO DAILY 09/02/20 09/20/20 History 24Hr] Metoprolol Succinate 100 mg PO DAILY 09/02/20 09/20/20 History diphenhydrAMINE HCl 25 mg PO HS PRN 09/02/20 09/20/20 History [Diphenhydramine HCl] NPH, Human Insulin Isophane 15 unit SC BID vial 09/03/20 09/20/20 Rx [HumuLIN N] Promethazine [Phenergan] 25 mg PO Q6H PRN #20 tab 09/03/20 09/20/20 Rx - History PMHx: Diabetes diagnosed at age 13 currently controlled with insulin, ESRD on dialysis T//Tue, HTN, anemia, HLD, nicotine abuse, anxiety, blindness PSHx: eye surgery FHx: parents with complicated DM, her father at 42 from diabetes complications, both parents with CHF, sister has HTN Social: lives at home independently with boyfriend, smokes 7 cigarettes a day since 19 years old (never smoked more than a pack per day), patient was a heavy drinker about 10 years ago, last drink was 2 years ago - Review of Systems General: reports: fatigue. denies: fever/chills, night sweats Eyes: reports: other (patient is blind) ENT: denies: nasal congestion, rhinorrhea Respiratory: reports: shortness of breath. denies: cough Cardiovascular: reports: edema, paroxysmal nocturnal dyspnea, orthopnea. denies: chest pain Gastrointestinal: reports: nausea, vomiting, diarrhea Genitourinary: reports: dysuria, other (heavy uterine bleeding for 6 days with periods) Skin: reports: rashes (states from taking Tylenol) Musculoskeletal: denies: pain, stiffness, swelling, arthritis/arthralgias Neurological: reports: weakness (gereralized). denies: syncope, seizure Psychological: reports: anxiety - Vital signs BP: 124/81 HR: 94 RR: 24 Tmax: 99.9 Pox: 93% on RA Wt: 76.66kg - Physical Exam Constitutional: NAD, awake, alert and oriented HEENT: normocephalic and atraumatic, EOMI, conjunctiva clear Neck: FROM, no JVD Chest: no-tender to palpation, no lesions Heart: RRR, normal S1/S2, pulses present Lungs: no respiratory distress, good air movement, no retractions -Lungs: crackles appreciated on exam Abdomen: soft, non-tender, bowel sounds present, no masses/distention -Abdomen: mildly distended Musculoskeletal: normal structure, normal tone, ROM grossly normal Neurological: no focal deficit, normal sensation -Neurological: 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 Skin: good turgor -Skin: reticular rash on abdomen and maculopapular rash on legs Heme/Lymphatic: no unusual bruising or bleeding, no petechia Psychiatric: normal mood and affect, good judgment and insight, intact recent and remote memory FMR H&P: Results - Labs Result Diagrams: 09/20/20 12:11 09/20/20 12:11 Lab results: WBC 7.8 thou/uL (4.8-10.8) 09/20/20 12:11 Hgb 7.5 g/dL (12.0-16.0) L 09/20/20 12:11 Hct 22.8 % (36.0-47.0) L 09/20/20 12:11 MCV 103.0 fL (78.0-98.0) H 09/20/20 12:11 Plt Count 274 thou/uL (130-400) 09/20/20 12:11 Neutrophils % 69.7 % (42.0-75.0) 09/20/20 12:11 Sodium 134 mmol/L (136-145) L 09/20/20 12:11 Potassium 5.6 mmol/L (3.5-5.1) H 09/20/20 12:11 Chloride 93 mmol/L (98-107) L 09/20/20 12:11 Carbon Dioxide 27 mmol/L (22-29) 09/20/20 12:11 BUN 34 mg/dL (7.0-18.7) H 09/20/20 12:11 Creatinine 8.11 mg/dL (0.6-1.1) H 09/20/20 12:11 Glucose 211 mg/dL (70-105) H 09/20/20 12:11 Lactic Acid 1.7 mmol/L (0.5-2.2) 09/20/20 12:11 Calcium 9.0 mg/dL (7.8-10.44) 09/20/20 12:11 Total Bilirubin 0.8 mg/dL (0.2-1.2) 09/20/20 12:11 AST 29 U/L (5-34) 09/20/20 12:11 ALT 20 U/L (8-55) 09/20/20 12:11 Alkaline Phosphatase 83 U/L (40-110) 09/20/20 12:11 B-Natriuretic Peptide 2264.3 pg/mL (0-100) H 09/20/20 12:11 Serum Total Protein 8.2 g/dL (6.0-8.3) 09/20/20 12:11 Albumin 3.4 g/dL (3.5-5.0) L 09/20/20 12:11 Lipase 70 U/L (8-78) 09/20/20 12:11 - EKG Interpretation EKG: EKG with NSR, no peaked T waves appreciated on exam FMR H&P: A/P - Plan Weakness likely 2/2 COVID versus volume overload versus anemia Volume overload -BNP elevated on exam, endorses orthopnea -strict I/Os, daily weights, fluid restriction ESRD on dialysis T/Th/Sat -Davonte Olivas, consulted from ED -hyperkalemia at 5.6 -continue with dialysis -monitor hyperkalemia with morning BMP Anemia -patient has known history of anemia of chronic disease, but also has history of heavy periods -2u PRBCs ordered, will follow up with 4 hour post transfusion H/H -will follow up iron studies and treat as indicated -patient would benefit from contraception outpatient for her heavy periods -could possible benefit from epogen, will follow up with nephro [facility] PNA -recently hospitalized with COVID and discharged on 09/09, tested positive on 09/02 -satting well on RA, patient is tachypneic at 25 -no need for convalescent plasma or decadron at this time UTI -UA suggestive of UTI -follow up cultures -Continue with Rocephin pending sensitivities Type II DM -aware, continue home NPH 15U BID -SSI -ACCU checks HTN -aware, continue home meds HLD -aware, continue home meds Nicotine abuse -aware, encouraged cessation Anxiety -aware, continue home meds Blindness -aware PCP: TAMP- Gill Fluids: KVO DVT Ppx: Heparin Diet: HH incl Lo Sodium, renal high protein, fluid restriction Code: FULL Dispo:admit to tele obs, anticipated LOS < 48 hours. PT/OT/CM/Dietary all consulted to help with dispo planning. Patient could benefit from SNF vs rehab given her weakness and many co morbidities. FMR H&P: Upper Level - Plan Date/Time: 09/20/20 1326 HPI, ROS, PE, consistent with above internet retailer note, as hisotry was taken by me and entered by Dr. Archer. A&P: 35 y/o IDDM on HD for ESRD admitted for hyperkalemia, volume overload with need for urgent HD, and UTI. All of which contributing to weakness and deconditioning. 1. Generalized weakness - 2/2 ESRD need for urgent HD with hyperkalemia and volume overload contributing. Symptomatic anemia 7./.8. - possible deconditioning after covid-19 pneumonia: PT/OT consulted for discharge recommendations, may benefit from inpt rehab stay. - trend daily cbc and bmp. - will replace hgb with 2 units pRBCs, scheduled for urgent HD, 2. Hyperkalemia - K 5.6 - Nephrology consulted from ER. Urgent HD scheudled - Pt T/R/Sat usual HD schedule - BMP daily 3. Volume overload - felt that too much fluid was taken of on Tuesday HD and wanted to get her weight back to 79 kg. Drank increase gatorade and fluids. - fluid restrict, daily weights, Urgent HD. 4. UTI - Rocephin 2g IV daily - urine ccx 5. COVID-19 +, without pneumonia - dx on 09/02, continue precautions for 21 days as required previous admission for treatment in August. 6. ESRD - T/R/Sat schedule 7. Symptomatic anemia - H/H: 7.5/.8 - 2 units pRBC's ordered by Nephrology Dr. Arauz - likely secondary to heavy uterine bleeding with anemia of chronic disease. will discuss IUD options with PCP, Dr. Jairo zepeda for treatment. - anemia labs with peripheral smear added too labs before transfusion. 8. Diarrhea - stool lactoferrin and c diff ordered. - recent IV antibiotics on hx admission 09/11. 9. IDDM - continue home dose NPH 15 untis BID - SSI Full code dvt ppx: heparin ppx diet: renal high protein, CC Dispo: admit to tele, obs. anticipate <48 hr hx stay. I, Shanti Delong, have evaluated this patient and agree with findings/plan as outlined by internet retailer resident. Pertinent changes/additions are listed here. Addendum - Attending - Attending Attestation Date/Time: 09/20/201818 I personally evaluated the patient and discussed the management with Dr. Archer. I agree with the History, Examination, Assessment and Plan documented above with any addition or exceptions noted below. The patient is admitting with a history of covid pneumonia who presents with volume overload in the setting of esrd. Will consult nephrology for dialysis. Respiratory status stable at this time. Pt with weakness, will get PT on board. check stool studies. Rocephin for uti. Cultures pending
[2020-09-20 13:42] LABS: Clarity Turbid (Clear); Specific Gravity, Urine 1.015 (1.002-1.036)
[2020-09-20 13:43] LABS: Bilirubin Negative (Negative); Glucose, Urine (Dipstick) Negative (Negative); Ketone, Urine 20 mg/dL (Negative); Leukocyte Large (Negative); Nitrite Negative (Negative); Protein, Urine (Dipstick) 100 mg/dL (Neg-Trace); Urobilinogen Normal mg/dL (Less than 2)
[2020-09-20 13:44] LABS: Blood, Urine Moderate (Negative)
[2020-09-20 13:45] LABS: Bacteria/HPF 4+ HPF (None Seen); WBC/HPF Greater Than 50 HPF (0-3)
[2020-09-20] MEDS ORDERED: HumaLOG 300 UNITS/3 ML VIAL SC PRN (13:50)
[2020-09-20] MEDS ORDERED: Dextrose 5% in Water 1,000 ML IV PRN (13:50)
[2020-09-20] MEDS ORDERED: Ondansetron PF 4 MG/2 ML Vial IVP PRN (13:50)
[2020-09-20] MEDS ORDERED: Dextrose 50% Abboject 50 ML SYRINGE SLOW IVP PRN (13:50)
[2020-09-20] MEDS ORDERED: Ondansetron ODT 4 MG TAB PO PRN (13:50)
[2020-09-20] MEDS ORDERED: Furosemide 40 MG/4 ML VIAL SLOW IVP SCH (14:00)
[2020-09-20] MEDS ORDERED: cefTRIAXone\\ROCEPHIN 1 GM VIAL ONE (14:05)
[2020-09-20] MEDS ORDERED: Lorazepam 2 MG/ML VIAL ONE (14:56)
[2020-09-20] MEDS ORDERED: Vancomycin 1 GM/200 ML BAG ONE (15:00)
[2020-09-20 16:23] LABS: Iron 39 ug/dL (50-170); Iron Binding Capacity, Total 153 mcg/dL (265-497)
[2020-09-20 16:26] LABS: Magnesium 1.9 mg/dL (1.6-2.6)
[2020-09-20] MEDS ORDERED: EPOETIN ALFA-EPBX (ESRD) 3,000 UNIT/ML VIAL IVP SCH (16:30)
[2020-09-20] MEDS ORDERED: EPOETIN ALFA-EPBX (ESRD) 2,000 UNIT/ML VIAL IVP SCH (16:30)
[2020-09-20] MEDS: cefTRIAXone\\ROCEPHIN 1 GM in Sodium Chloride 0.9% 100 ML IVPB SCH (17:17)
[2020-09-20] MEDS: Heparin 5,000 UNITS/ML VIAL SC SCH ×2 (17:18→21:31)
[2020-09-20 18:41] LABS: HBSAg Index 0.24 S/CO (0-0.99); Hep B Surf Ag Non-Reactive S/CO (NonReactive)
--- NOTE | 2020-09-20 19:13 | CON ---
DATE OF CONSULTATION: REQUESTING PHYSICIAN: ER physician. REASON FOR CONSULTATION: Need for maintenance hemodialysis in a patient with end-stage renal disease. IMPRESSION: 1. End-stage renal disease, on hemodialysis, due for dialysis today. 2. Progressive lethargy, query cause. Might be a case of post COVID symptomatology compounded by anemia. 3. Anemia, possibly anemia of chronic kidney disease that of critical illness. 4. Hyperkalemia. The patient is due for dialysis today. PLAN: 1. The patient to be dialyzed today with a transfusion of 2 units of blood. 2. Further management will be dependent on the clinical course. HISTORY OF PRESENT ILLNESS: History is that of 35-year-old female patient with end-stage renal disease, hemodialysis dependent, diabetes mellitus, who was recently treated for COVID, discharged, doing well but started experiencing progressively worsening weakness to the point that the patient cannot get up and about. As a result, the patient presented to the ER, where she was noted to be anemic as well as hyperkalemic. Decision to address this hyperkalemia and anemia necessitated Renal consultation. PAST MEDICAL HISTORY: Please refer to the recent hospitalization. FAMILY HISTORY: Please refer to the recent hospitalization. SOCIAL HISTORY: Please refer to the recent hospitalization. REVIEW OF SYSTEMS: As documented in the body of the history. All the other systems were reviewed and found not to be significantly related to presenting illness. PHYSICAL EXAMINATION: GENERAL: The patient was found not to be in any obvious distress. VITAL SIGNS: Noted with the following vital signs; afebrile, temperature 98, pulse 90, respiratory rate of 18, O2 saturation 99% with a blood pressure of 152/81. HEENT: Unremarkable. CARDIOVASCULAR SYSTEM: First and second heart sounds were heard. RESPIRATORY SYSTEM: Clear to auscultation. DIGESTIVE SYSTEM: Revealed a benign abdomen. EXTREMITIES: No peripheral edema. SKIN: No new gross rash. LYMPHATICS: No peripheral lymphadenopathy. SUMMARY: A 35-year-old female patient with end-stage renal disease, here with lethargy, noted to be hyperkalemic and severely anemic. Thank you for this consultation. We will follow with you. Job ID: [id number]
[2020-09-20] MEDS: NPH, Human Insulin Isophane 300 UNIT/3 ML VIAL SC SCH (21:31)
[2020-09-20] MEDS ORDERED: Promethazine 25 MG TAB PO PRN (22:50)
[2020-09-20] MEDS: ALPRAZolam 0.25 MG TAB PO PRN (23:07)
[2020-09-21] MEDS: diphenhydrAMINE 25 MG CAP PO PRN ×3 (03:22→20:47)
[2020-09-21 04:42] LABS: #Basophils 0.1 thou/uL (0.0-0.2); #Eosinphils 0.2 thou/uL (0.0-0.7); #Lymphocytes 1.4 thou/uL (1.20-3.40); #Monocytes 0.7 thou/uL (0.11-0.59); %Basophils 1.4 % (0.0-1.0); %Eosinophils 2.6 % (0.0-10.0); %Lymphocytes 22.4 % (21.0-51.0); %Monocytes 10.3 % (0.0-10.0); %Neutrophils 63.2 % (42.0-75.0); Mean Corpuscular HGB CONC 32.5 g/dL (32.0-36.0); Mean Corpuscular Hemoglobin 31.4 pg (27.0-31.0); Mean Corpuscular Volume 96.7 fL (78.0-98.0); Mean Platelet Volume 7.1 fL (7.4-10.4); Platelet Count 226 thou/uL (130-400); RBC Distribution Width 16.7 % (11.5-14.5); Red Blood Cell (RBC) Count 2.85 mill/uL (4.20-5.40); White Blood Cell (WBC) Count 6.3 thou/uL (4.8-10.8)
[2020-09-21 05:00] LABS: ALT (SGPT) 15 U/L (8-55); AST (SGOT) 12 U/L (5-34); Albumin 2.9 g/dL (3.5-5.0); Alkaline Phosphatase 73 U/L (40-110); Anion Gap 13 mmol/L (10-20); BUN (Urea Nitrogen) 15 mg/dL (7.0-18.7); Bilirubin, Total 0.6 mg/dL (0.2-1.2); Calc. Creatinine Clearance 20 mL/min (70-130); Calcium 8.4 mg/dL (7.8-10.44); Carbon Dioxide 31 mmol/L (22-29); Chloride 97 mmol/L (98-107); Globulin 4.1 g/dL (2.4-3.5); Glucose 183 mg/dL (70-105); Magnesium 1.8 mg/dL (1.6-2.6); Potassium 4.1 mmol/L (3.5-5.1); Sodium 137 mmol/L (136-145)
--- NOTE | 2020-09-21 06:24 | PDOC.FM ---
- Subjective Subjective: Patient doing much better this morning after dialysis yesterday and 2u pRBCs. Has no complaints today. Able to lay flat without feeling short of breath - Objective MAR Reviewed: Yes Vital Signs & Weight: Vital Signs (12 hours) Temp Pulse Resp BP Pulse Ox 09/21/20 03:23 98.6 F 98 18 130/60 97 09/21/20 00:00 94 09/20/20 21:05 98 F 94 20 166/74 H 96 Weight Weight 77.383 kg I&O: 09/19/20 09/20/20 09/21/20 06:59 06:59 06:59 Intake Total 480 Balance 480 Result Diagrams: 09/21/20 04:12 09/21/20 04:12 Phys Exam - Physical Examination Constitutional: NAD HEENT: moist MMs patient is blind Neck: supple Respiratory: no wheezing, clear to auscultation bilateral Cardiovascular: RRR, no significant murmur Gastrointestinal: soft, non-tender, no distention, positive bowel sounds Musculoskeletal: no edema, pulses present Neurological: normal sensation, moves all 4 limbs Psychiatric: normal affect, A&O x 3 Dx/Plan - Plan Plan: Weakness likely 2/2 COVID versus volume overload versus anemia Volume overload, improved -BNP elevated, endorses orthopnea on admission -strict I/Os, daily weights, fluid restriction ESRD on dialysis T//Sat -Davonte Olivas, consulted from ED -hyperkalemia at 5.6, resolved after dialysis -continue with dialysis as per nephro -monitor hyperkalemia with morning BMP -follow nephro recs Anemia, improved -patient has known history of anemia of chronic disease, but also has history of heavy periods -2u PRBCs ordered, post transfusion H/H stable -likely anemia of chronic disease given iron studies with high ferritin, low Iron and TIBC -patient would benefit from contraception outpatient for her heavy periods -could possible benefit from epogen, will follow up with nephro [facility] P[facility] -recently hospitalized with COVID and discharged on 09/09, tested positive on 09/02 -satting well on RA -no need for convalescent plasma or decadron at this time UTI -UA suggestive of UTI -follow up cultures -Continue with Rocephin pending sensitivities Type II DM -aware, continue home NPH 15U BID -SSI -ACCU checks HTN -aware, continue home meds HLD -aware, continue home meds Nicotine abuse -aware, encouraged cessation Anxiety -aware, continue home meds Blindness -aware PCP: TAMP- Gill Fluids: KVO DVT Ppx: Heparin Diet: HH incl Lo Sodium, renal high protein, fluid restriction Code: FULL Dispo:admit to tele obs, anticipated LOS < 48 hours. PT/OT/CM/Dietary all consulted to help with dispo planning. Patient could benefit from SNF vs rehab given her weakness and many co morbidities. Addendum - Attending - Attending Attestation Date/Time: 09/21/20 [id number] I personally evaluated the patient and discussed the management with Dr. Archer. I agree with the History, Examination, Assessment and Plan documented above with any addition or exceptions noted below. H/H improved following transfusion. Pt feeling better after dialysis. Consulting pt for the weakness that brought patient to the hospital.
[2020-09-21] MEDS: Amlodipine 10 MG TAB PO SCH (08:16)
[2020-09-21] MEDS: Heparin 5,000 UNITS/ML VIAL SC SCH ×3 (08:16→20:47)
[2020-09-21] MEDS: NPH, Human Insulin Isophane 300 UNIT/3 ML VIAL SC SCH ×2 (09:24→20:47)
[2020-09-21] MEDS: HumaLOG 300 UNITS/3 ML VIAL SC PRN (11:13)
[2020-09-21] MEDS: ALPRAZolam 0.25 MG TAB PO PRN ×2 (11:42→23:36)
[2020-09-21] MEDS: cefTRIAXone\\ROCEPHIN 1 GM in Sodium Chloride 0.9% 100 ML IVPB SCH (14:51)
--- NOTE | 2020-09-21 17:49 | PRG ---
DATE OF SERVICE: 09/21/2020 SUBJECTIVE: The patient is seen and examined, noted with the following vital signs. OBJECTIVE: VITAL SIGNS: Afebrile, temperature 98.6, pulse 98, respiratory rate 18, O2 saturation of 97%. HEENT: Unremarkable. CARDIOVASCULAR SYSTEM: First and second heart sounds were heard. RESPIRATORY SYSTEM: Clear to auscultation. DIGESTIVE SYSTEM: Revealed a benign abdomen with positive bowel sounds. EXTREMITIES: No peripheral edema. SKIN: No new gross rash. LYMPHATICS: No peripheral lymphadenopathy. IMPRESSION: 1. End-stage renal disease, hemodialysis dependent. 2. Anemia, status post blood transfusion. 3. Diabetes mellitus. PLAN: 1. Continue dialysis per schedule. 2. Further management will be dependent on the clinical course. Job ID: [id number]
[2020-09-22] MEDS: diphenhydrAMINE 25 MG CAP PO PRN ×3 (00:39→20:47)
[2020-09-22 04:32] LABS: #Basophils 0.1 thou/uL (0.0-0.2); #Eosinphils 0.2 thou/uL (0.0-0.7); #Lymphocytes 1.9 thou/uL (1.20-3.40); #Monocytes 0.9 thou/uL (0.11-0.59); #Neutrophils 5.5 thou/uL (1.40-6.50); %Basophils 1.2 % (0.0-1.0); %Eosinophils 2.8 % (0.0-10.0); %Lymphocytes 22.3 % (21.0-51.0); %Monocytes 10.4 % (0.0-10.0); %Neutrophils 63.3 % (42.0-75.0); Hemoglobin 8.8 g/dL (12.0-16.0); Mean Corpuscular HGB CONC 33.2 g/dL (32.0-36.0); Mean Corpuscular Hemoglobin 32.4 pg (27.0-31.0); Mean Corpuscular Volume 97.5 fL (78.0-98.0); Mean Platelet Volume 6.7 fL (7.4-10.4); Platelet Count 249 thou/uL (130-400); RBC Distribution Width 16.6 % (11.5-14.5); White Blood Cell (WBC) Count 8.7 thou/uL (4.8-10.8)
[2020-09-22 04:51] LABS: ALT (SGPT) 12 U/L (8-55); AST (SGOT) 11 U/L (5-34); Albumin 2.8 g/dL (3.5-5.0); Alkaline Phosphatase 67 U/L (40-110); Anion Gap 15 mmol/L (10-20); BUN (Urea Nitrogen) 23 mg/dL (7.0-18.7); Bilirubin, Total 0.5 mg/dL (0.2-1.2); Calc. Creatinine Clearance 14 mL/min (70-130); Calcium 8.2 mg/dL (7.8-10.44); Carbon Dioxide 27 mmol/L (22-29); Chloride 98 mmol/L (98-107); Globulin 4.1 g/dL (2.4-3.5); Glucose 95 mg/dL (70-105); Potassium 4.1 mmol/L (3.5-5.1); Protein, Total 6.9 g/dL (6.0-8.3); Sodium 136 mmol/L (136-145)
[2020-09-22] MEDS ORDERED: Loperamide HCl 2 MG CAP PO PRN (06:22)
--- NOTE | 2020-09-22 06:22 | PDOC.FM ---
- Subjective Subjective: Patient resting comfortably in bed on RA. States she has no acute complaints. She "just wants to work to get stronger today so she can go home" - Objective MAR Reviewed: Yes Vital Signs & Weight: Vital Signs (12 hours) Temp Pulse Resp BP Pulse Ox 09/22/20 04:00 98.1 F 90 153/71 H 94 L 09/22/20 00:00 93 09/21/20 19:05 98.8 F 94 18 163/67 H 96 Weight Weight 78.608 kg I&O: 09/20/20 09/21/20 09/22/20 06:59 06:59 06:59 Intake Total 480 Balance 480 Result Diagrams: 09/22/20 04:05 09/22/20 04:05 Phys Exam - Physical Examination Constitutional: NAD HEENT: moist MMs Neck: no JVD Respiratory: no wheezing, clear to auscultation bilateral Cardiovascular: RRR, no significant murmur Gastrointestinal: soft, non-tender Musculoskeletal: no edema, pulses present Neurological: moves all 4 limbs Psychiatric: normal affect, A&O x 3 Dx/Plan - Plan Plan: Weakness likely 2/2 COVID versus volume overload versus anemia Volume overload, improved -BNP elevated, endorses orthopnea on admission -strict I/Os, daily weights, fluid restriction ESRD on dialysis T//Sat -Davonte Olivas, consulted from ED -hyperkalemia at 5.6, resolved after dialysis -continue with dialysis as per nephro -monitor hyperkalemia with morning BMP -follow nephro recs Anemia, improved -patient has known history of anemia of chronic disease, but also has history of heavy periods -2u PRBCs ordered, post transfusion H/H stable -likely anemia of chronic disease given iron studies with high ferritin, low Iron and TIBC -patient would benefit from contraception outpatient for her heavy periods -patient received epogen, will follow up with nephro [facility] PNA -recently hospitalized with COVID and discharged on 09/09, tested positive on 09/02 -satting well on RA -no need for convalescent plasma or decadron at this time UTI -UA suggestive of UTI -follow up cultures -Continue with Rocephin pending sensitivities Type II DM -aware, continue home NPH 15U BID -SSI -ACCU checks HTN -aware, continue home meds HLD -aware, continue home meds Nicotine abuse -aware, encouraged cessation Anxiety -aware, continue home meds Blindness -aware Diarrhea -stool studies negative -Imodium PRN -daily Probiotic PCP: TRENT Gill Fluids: KVO DVT Ppx: Heparin Diet: HH incl Lo Sodium, renal high protein, fluid restriction Code: FULL Dispo:admit to tele obs, anticipated LOS < 48 hours. PT/OT/CM/Dietary all consulted to help with dispo planning. Patient could benefit from SNF vs rehab given her weakness and many co morbidities. Addendum - Attending - Attending Attestation Date/Time: 09/22/20 1003 I personally evaluated the patient and discussed the management with Dr. Archer. I agree with the History, Examination, Assessment and Plan documented above with any addition or exceptions noted below. Awaiting pt/ot eval. Want to evaluate pt's weakness. Hopefully home soon.
[2020-09-22] MEDS: Amlodipine 10 MG TAB PO SCH (08:06)
[2020-09-22] MEDS: Heparin 5,000 UNITS/ML VIAL SC SCH ×3 (08:07→20:47)
[2020-09-22] MEDS: Lactinex Tablet PO SCH (08:58)
[2020-09-22] MEDS: NPH, Human Insulin Isophane 300 UNIT/3 ML VIAL SC SCH ×2 (08:58→20:50)
[2020-09-22] MEDS: ALPRAZolam 0.25 MG TAB PO PRN (11:11)
[2020-09-22 13:42] VITALS: BMI 29.7
[2020-09-22] MEDS: cefTRIAXone\\ROCEPHIN 1 GM in Sodium Chloride 0.9% 100 ML IVPB SCH (18:25)
[2020-09-22] MEDS ORDERED: Epoetin (ESRD) 20,000 UNITS/ML SC SCH (18:30)
--- NOTE | 2020-09-22 18:32 | PRG ---
DATE OF SERVICE: SUBJECTIVE: The patient noted with the following vital signs. OBJECTIVE: VITAL SIGNS: Afebrile, temperature 97.9, pulse 81, respiratory rate of 18, O2 saturations of 98%, blood pressure 140/59. HEENT: Unremarkable. CARDIOVASCULAR SYSTEM: First and second heart sounds were heard. RESPIRATORY SYSTEM: Clear to auscultation. DIGESTIVE SYSTEM: Revealed a benign abdomen. Positive bowel sounds. EXTREMITIES: No peripheral edema. SKIN: No new gross rash. LYMPHATICS: No peripheral lymphadenopathy. IMPRESSION: 1. End-stage renal disease, on hemodialysis. 2. Severe anemia, status post blood transfusion. 3. Diabetes mellitus. PLAN: 1. The patient to continue with dialysis per schedule. 2. Erythropoiesis stimulating agents. 3. Further management to be dependent on the clinical course. Job ID: [id number]
[2020-09-22] MEDS ORDERED: Epoetin (ESRD) 10,000 UNITS/ML VIAL SC SCH (21:00)
[2020-09-23] MEDS: ALPRAZolam 0.25 MG TAB PO PRN ×2 (00:31→13:04)
[2020-09-23 04:55] LABS: #Eosinphils 0.2 thou/uL (0.0-0.7); #Lymphocytes 1.9 thou/uL (1.20-3.40); #Monocytes 0.7 thou/uL (0.11-0.59); #Neutrophils 3.6 thou/uL (1.40-6.50); %Basophils 0.5 % (0.0-1.0); %Eosinophils 3.3 % (0.0-10.0); %Lymphocytes 29.5 % (21.0-51.0); %Monocytes 10.6 % (0.0-10.0); Hemoglobin 8.5 g/dL (12.0-16.0); Mean Corpuscular HGB CONC 32.8 g/dL (32.0-36.0); Mean Corpuscular Volume 97.4 fL (78.0-98.0); Mean Platelet Volume 7.1 fL (7.4-10.4); Platelet Count 207 thou/uL (130-400); RBC Distribution Width 16.4 % (11.5-14.5); Red Blood Cell (RBC) Count 2.65 mill/uL (4.20-5.40); White Blood Cell (WBC) Count 6.4 thou/uL (4.8-10.8)
[2020-09-23 05:23] LABS: ALT (SGPT) 9 U/L (8-55); AST (SGOT) 8 U/L (5-34); Albumin 2.8 g/dL (3.5-5.0); Alkaline Phosphatase 61 U/L (40-110); Anion Gap 16 mmol/L (10-20); BUN (Urea Nitrogen) 15 mg/dL (7.0-18.7); Bilirubin, Total 0.4 mg/dL (0.2-1.2); Calc. Creatinine Clearance 19 mL/min (70-130); Calcium 8.2 mg/dL (7.8-10.44); Carbon Dioxide 27 mmol/L (22-29); Chloride 98 mmol/L (98-107); Globulin 4.1 g/dL (2.4-3.5); Glucose 223 mg/dL (70-105); Potassium 4.6 mmol/L (3.5-5.1); Protein, Total 6.9 g/dL (6.0-8.3); Sodium 136 mmol/L (136-145)
--- NOTE | 2020-09-23 06:42 | PDOC.FM ---
- Subjective Subjective: Patient's dialysis schedule changed to MWF. Doing well, only complaint is increased in vaginal discharge, unsure of appearance as she is blind. She also has vaginal itching. Has had these same symptoms in past that was improved with Diflucan. Otherwise, feels much better and working well with PT. - Objective MAR Reviewed: Yes Vital Signs & Weight: Vital Signs (12 hours) Temp Pulse Resp BP BP Pulse Ox 09/23/20 04:00 98.8 F 90 20 122/67 97 09/23/20 00:00 98 09/22/20 19:03 98.3 F 90 18 164/81 H 98 Weight Admit Weight 82.599 kg Weight 76.929 kg I&O: 09/21/20 09/22/20 09/23/20 06:59 06:59 06:59 Intake Total 480 2160 Output Total 1400 Balance 480 760 Result Diagrams: 09/23/20 04:27 09/23/20 04:27 Phys Exam - Physical Examination Constitutional: NAD HEENT: moist MMs Neck: no JVD, supple, full ROM Respiratory: no wheezing, clear to auscultation bilateral Cardiovascular: RRR, no significant murmur Gastrointestinal: soft, non-tender, no distention, positive bowel sounds Musculoskeletal: no edema, pulses present Neurological: moves all 4 limbs Psychiatric: normal affect, A&O x 3 Skin: normal turgor Dx/Plan - Plan Plan: Weakness likely 2/2 COVID versus volume overload versus anemia Volume overload, improved -BNP elevated, endorses orthopnea on admission -strict I/Os, daily weights, fluid restriction ESRD on dialysis now MW -Davonte Olivas, consulted from ED -hyperkalemia at 5.6, resolved after dialysis -continue with dialysis as per nephro -monitor hyperkalemia with morning BMP -follow nephro recs Anemia, improved -patient has known history of anemia of chronic disease, but also has history of heavy periods -2u PRBCs ordered, post transfusion H/H stable -likely anemia of chronic disease given iron studies with high ferritin, low Iron and TIBC -patient would benefit from contraception outpatient for her heavy periods -patient received epogen, will follow up with nephro [facility] PNA -recently hospitalized with COVID and discharged on 09/09, tested positive on 09/02 -satting well on RA -no need for convalescent plasma or decadron at this time Vaginal itching -similar to previous episodes where she responded well to Diflucan -will treat for suspected yeast infection UTI -UA suggestive of UTI -follow up cultures prelim negative -Continue with Rocephin until culture results Type II DM -aware, continue home NPH 15U BID -SSI -ACCU checks HTN -aware, continue home meds HLD -aware, continue home meds Nicotine abuse -aware, encouraged cessation Anxiety -aware, continue home meds Blindness -aware Diarrhea -stool studies negative -Imodium PRN -daily Probiotic PCP: TAMP- Gill Fluids: KVO DVT Ppx: Heparin Diet: HH incl Lo Sodium, renal high protein, fluid restriction Code: FULL Dispo:admit to tele obs, anticipated LOS < 48 hours. PT/OT/CM/Dietary all consulted to help with dispo planning. Patient could benefit from SNF vs giv en her weakness and many co morbidities. Anticipate discharge today. Addendum - Attending - Attending Attestation Date/Time: 09/23/20 1350 I personally evaluated the patient and discussed the management with Dr. Archer. I agree with the History, Examination, Assessment and Plan documented above with any addition or exceptions noted below.
[2020-09-23] MEDS: Amlodipine 10 MG TAB PO SCH (08:47)
[2020-09-23] MEDS: Lactinex Tablet PO SCH (08:49)
[2020-09-23] MEDS: Heparin 5,000 UNITS/ML VIAL SC SCH (08:50)
[2020-09-23] MEDS: NPH, Human Insulin Isophane 300 UNIT/3 ML VIAL SC SCH (08:50)
[2020-09-23] MEDS: HumaLOG 300 UNITS/3 ML VIAL SC PRN ×2 (11:28→17:00)
[2020-09-23] MEDS ORDERED: Fluconazole 100 MG TAB PO SCH (11:30)
[2020-09-23] MEDS: cefTRIAXone\\ROCEPHIN 1 GM in Sodium Chloride 0.9% 100 ML IVPB SCH (13:04)
[2020-09-23 15:41] VITALS: BP 157/79; TEMP 97.8
--- NOTE | 2020-09-23 17:51 | PRG ---
DATE OF SERVICE: 09/23/2020 SUBJECTIVE: The patient noted with the following vital signs. OBJECTIVE: VITAL SIGNS: Afebrile. Temperature 97.8, pulse 82, respiratory rate of 18, O2 saturation 96%, blood pressure 157/79. HEENT: Unremarkable. CARDIOVASCULAR SYSTEM: First and second heart sounds were heard. RESPIRATORY SYSTEM: Clear to auscultation. DIGESTIVE SYSTEM: Revealed a benign abdomen. Positive bowel sounds. EXTREMITIES: No peripheral edema. SKIN: No new gross rash. LYMPHATICS: No peripheral lymphadenopathy. IMPRESSION: 1. End-stage renal disease, on dialysis Tuesday, Tuesday, Tuesday schedule. 2. Anemia, status post blood transfusion. 3. Recent COVID infection. PLAN: 1. The patient to continue with current Tuesday, Tuesday, Tuesday dialysis schedule with ultrafiltration as tolerated by hemodynamics. 2. Continue erythropoiesis stimulating agent. 3. Dispo planning as per the primary team. Job ID: [id number]
[2020-09-24] MEDS ORDERED: Fluconazole 100 MG TAB PO SCH (09:00)
--- NOTE | 2020-09-24 13:17 | DIS ---
DATE OF ADMISSION: 09/22/2020 DATE OF DISCHARGE: 09/23/2020 RESIDENT: Kathrin Archer MD, PGY-1. ADMITTING ATTENDING: Caroline Abdalla MD. DISCHARGE ATTENDING: Lam Wilkerson MD. CONSULT: 1. Nephrology Dr. Arauz. 2. Case Management. 3. Dietitian. 4. PT, OT. PROCEDURES: Chest x-ray on 09/20/2020, which showed improved lung aeration from the comparison September 05, 2020, mild continued lung opacities. Heart size is enlarged. The patient also underwent dialysis. PRIMARY DIAGNOSIS: Weakness, likely secondary to COVID versus volume overload versus anemia. SECONDARY DIAGNOSES: 1. End-stage renal disease on dialysis vaginal itching, likely secondary to yeast infection. 2. Urinary tract infection. 3. Type 2 diabetes. 4. Hypertension. 5. Hyperlipidemia. 6. Nicotine abuse. 7. Anxiety. 8. Blindness. 9. Diarrhea, improved. DISCHARGE MEDICATIONS: 1. Epoetin 33234 units subcutaneous every seven days. 2. Diphenhydramine 25 mg p.o. at bedtime p.r.n. 3. Metoprolol succinate 100 mg p.o. daily. 4. Amlodipine 10 mg p.o. daily. 5. Alprazolam 0.25 mg p.o. b.i.d. p.r.n. 6. Nexium 40 mg p.o. daily. 7. NPH 15 units subcutaneous b.i.d. 8. Phenergan 25 mg p.o. q.6 hours as needed. DISCONTINUED MEDICATIONS: None. HISTORY OF PRESENT ILLNESS/HOSPITAL COURSE: The patient is a 35-year-old female with past medical history of diabetes, ESRD on dialysis, hypertension, anemia, hyperlipidemia, nicotine abuse, anxiety, blindness, who presents with chief complaint of weakness. The patient was recently hospitalized with COVID and she has a positive on 09/02. Patient states on Tuesday before admission, symptoms of weakness worsened. She states that she had too much fluid taken off for her dialysis and she overcompensated by drinking a lot of fluids. She says the morning of admission, she tried to get out of bed and her legs gave out and fell because she was so weak. She says this has happened several times in the week leading up to admission. She also endorses dizziness and lightheadedness. She endorses improvement in respiratory symptoms since discharge from hospitalization for COVID, but she does have orthopnea. She endorses watery stools, headache and nausea with vomiting. She also denies hematuria, but endorses heavy periods in the ED. Patient received 4 mg Zofran and morphine. Nephrology was consulted from the ER and transfused the patient 2 units of packed red blood cells given hemoglobin of 7.5 and her symptoms. Patient's BNP was elevated on exam and had other clinical features of volume overload. The patient was taken to dialysis as per Nephrology recommendations and her lab work such as her hyperkalemia improved. The patient received Epogen from Nephrology given her mixed picture of anemia of chronic disease and likely blood loss anemia from her heavy periods. As for her COVID pneumonia, the patient was saturating well on room air. Patient's UA in the ED was suggestive of UTI, so patient was started on Rocephin. However, cultures came back negative and antibiotics were discontinued. The patient was continued on home medications for her chronic conditions. DISPOSITION: Stable. DISCHARGE INSTRUCTIONS: 1. Location: Home with Home Health. 2. Diet: Heart healthy diet, renal diet. 3. Activity: As tolerated. 4. Followup: Follow up with Dr. Arauz with routine dialysis and with [facility] within seven days for hospital followup. Job ID: [id number] [facility] HOSPITALBaltazar
--- NOTE | 2020-09-24 15:51 | PQF ---
CLINICAL DOCUMENTATION CLARIFICATION FORM: Dear Dr. Kathrin Archer / Dr. Lam Wilkerson Date: 09.24.20 Please exercise your independent, professional judgment in responding to the clarification form. Clinical indicators are provided on the bottom of this form for your review. Please check appropriate box(es): [ ] COVID-19 Pneumonia is current diagnosis [ x ] COVID-19 Pneumonia is past medical history not currently being treated/monitored [ ] Other diagnosis [ ] Unable to determine For continuity of documentation, please document condition throughout progress notes and discharge summary. Thank You. To be completed by CDI/Coding staff for physician review: Clinical Indicators - Signs / Symptoms / Labs with Results and Location in Medical Record 1.16 H&P (Light) * presented with weakness * recently hospitalized w/ COVID, tested positive on 09/02 * satting well on RA, pt is tachypneic at 25 * weakness likely 2/2 COVID versus volume overload vs anemia *possible deconditioning after COVID-19 PNA; Risk Factors with Results and Location in Medical Record 1.16 H&P (Light) * PMHx: DM diagnosed at age 13; ESRD on dialysis; HTN; anemia; * COVID PNA recently hospitalized w/ COVID and discharged on 09/09, tested positive on 09/02; Treatments with Results and Location in Medical Record 1.16 H&P (Light) * no need for convalescent plasma or decadron at this time. * PT/OT consulted for discharge recommendations, may benefit from inpt rehab stay * Continue precautions for 21 days as required previous admission for tx in August CDS Signature: Jonna Webb RN, CCDS Phone #: [phone] [email or web address] This is a permanent part of the Medical Record [facility]
== END 2020-09-23 18:15 | disposition home health service (06) | DRG 811 ==
LOC: ERS 11:05 → 2NO 13:28 → OBSVTOIN 09-22 09:50
PROVIDERS: ADMIT Family Medicine; ATTEND Family Medicine
PROC: 30233N1 Transfusion of Nonautologous Red Blood Cells into Peripheral Vein, Percutaneous Approach (ICD-10-PCS; principal; 2020-09-20)
PROC: 5A1D70Z Performance of Urinary Filtration, Intermittent, Less than 6 Hours Per Day (ICD-10-PCS; 2020-09-22)
DX: D50.0 Iron deficiency anemia secondary to blood loss (chronic) (principal); N18.6 End stage renal disease; N39.0 Urinary tract infection, site not specified; I12.0 Hypertensive chronic kidney disease with stage 5 chronic kidney disease or end stage renal disease; E11.22 Type 2 diabetes mellitus with diabetic chronic kidney disease; E87.70 Fluid overload, unspecified; Z86.16 Personal history of COVID-19; B37.3 Candidiasis of vulva and vagina; E78.5 Hyperlipidemia, unspecified; F17.210 Nicotine dependence, cigarettes, uncomplicated; F41.9 Anxiety disorder, unspecified; H54.8 Legal blindness, as defined in USA; R19.7 Diarrhea, unspecified; E87.5 Hyperkalemia; D63.1 Anemia in chronic kidney disease; Z88.4 Allergy status to anesthetic agent; Z88.8 Allergy status to other drugs, medicaments and biological substances; Z99.2 Dependence on renal dialysis; Z79.899 Other long term (current) drug therapy; Z79.4 Long term (current) use of insulin; Z83.3 Family history of diabetes mellitus; Z82.49 Family history of ischemic heart disease and other diseases of the circulatory system
CPT/HCPCS: 36415; 36416; 36430; 51701; 71045; 80053; 81003; 81015; 82607; 82728; 82746; 83540; 83550; 83605; 83630; 83690; 83735; 83880; 84484; 85025; 85060; 86850; 86900; 86901; 87040; 87045; 87046; 87086; 87324; 87340; 87427; 87449; 90935; 93005; 96365; 96367; 96372; 96375; 96376; G0257; G0378; J0696; J1644; J1815; J2060; J2270; J2405; J3370; J3490; P9016; Q0163; Q0169; Q4081; Q5105

== ENCOUNTER 2021-02-06 18:45 | Emergency (ER) | payer MEDICARE ==
[2021-02-06 22:04] LABS: #Basophils 0.1 thou/uL (0.0-0.2); #Eosinphils 0.2 thou/uL (0.0-0.7); #Lymphocytes 2.7 thou/uL (1.20-3.40); #Monocytes 1.4 thou/uL (0.11-0.59); #Neutrophils 7.3 thou/uL (1.40-6.50); %Basophils 0.9 % (0.0-1.0); %Eosinophils 1.6 % (0.0-10.0); %Lymphocytes 23.4 % (21.0-51.0); %Neutrophils 62.1 % (42.0-75.0); Hemoglobin 11.8 g/dL (12.0-16.0); Mean Corpuscular HGB CONC 35.6 g/dL (32.0-36.0); Mean Corpuscular Hemoglobin 34.5 pg (27.0-31.0); Mean Corpuscular Volume 97.1 fL (78.0-98.0); Mean Platelet Volume 7.5 fL (7.4-10.4); Platelet Count 282 thou/uL (130-400); RBC Distribution Width 13.8 % (11.5-14.5); Red Blood Cell (RBC) Count 3.41 mill/uL (4.20-5.40); White Blood Cell (WBC) Count 11.7 thou/uL (4.8-10.8)
[2021-02-06 22:07] LABS: BHCG - Serum Negative (NEGATIVE); Pregs Control Background? CLEAR/WHITE (CLR/WHITE); Pregs Control Bar Appear? YES (CONTROL BAR)
[2021-02-06 22:15] LABS: ALT (SGPT) 7 U/L (8-55); AST (SGOT) 8 U/L (5-34); Albumin 3.7 g/dL (3.5-5.0); Alkaline Phosphatase 62 U/L (40-110); Anion Gap 15 mmol/L (10-20); BUN (Urea Nitrogen) 15 mg/dL (7.0-18.7); Bilirubin, Total 0.3 mg/dL (0.2-1.2); Calc. Creatinine Clearance 0 mL/min (70-130); Calcium 9.3 mg/dL (7.8-10.44); Carbon Dioxide 30 mmol/L (22-29); Chloride 91 mmol/L (98-107); Globulin 4.2 g/dL (2.4-3.5); Glucose 261 mg/dL (70-105); Potassium 3.3 mmol/L (3.5-5.1); Protein, Total 7.9 g/dL (6.0-8.3); Sodium 133 mmol/L (136-145)
[2021-02-06 22:20] LABS: Troponin I Less than 0.010 ng/mL (< 0.028)
== END 2021-02-06 22:42 | disposition home or self-care (01) ==
LOC: ERS 18:45
DX: R06.02 Shortness of breath (principal); E11.9 Type 2 diabetes mellitus without complications; I10 Essential (primary) hypertension; F17.210 Nicotine dependence, cigarettes, uncomplicated; Z79.899 Other long term (current) drug therapy
CPT/HCPCS: 36415; 71045; 80053; 84484; 84703; 85025; 93005

== ENCOUNTER 2021-06-17 12:51 | Emergency (ER) | payer MEDICARE ==
[2021-06-17] MEDS ORDERED: Ondansetron PF 4 MG/2 ML Vial ONE (13:15)
[2021-06-17 13:43] LABS: #Eosinphils 0.1 thou/uL (0.0-0.7); #Lymphocytes 0.7 thou/uL (1.20-3.40); #Monocytes 0.6 thou/uL (0.11-0.59); #Neutrophils 6.1 thou/uL (1.40-6.50); %Basophils 0.4 % (0.0-1.0); %Eosinophils 0.9 % (0.0-10.0); %Lymphocytes 8.9 % (21.0-51.0); %Monocytes 7.7 % (0.0-10.0); %Neutrophils 82.2 % (42.0-75.0); Hemoglobin 10.2 g/dL (12.0-16.0); Mean Corpuscular HGB CONC 32.5 g/dL (32.0-36.0); Mean Corpuscular Hemoglobin 32.1 pg (27.0-31.0); Mean Corpuscular Volume 98.8 fL (78.0-98.0); Mean Platelet Volume 7.8 fL (7.4-10.4); Platelet Count 217 thou/uL (130-400); RBC Distribution Width 15.1 % (11.5-14.5); Red Blood Cell (RBC) Count 3.18 mill/uL (4.20-5.40); White Blood Cell (WBC) Count 7.4 thou/uL (4.8-10.8)
[2021-06-17] MEDS ORDERED: Lorazepam 2 MG/ML VIAL ONE (13:43)
[2021-06-17] MEDS ORDERED: Promethazine HCl 25 MG/ML VIAL ONE ×2 (13:46→14:35)
[2021-06-17 13:53] LABS: BHCG - Serum Negative (NEGATIVE); Pregs Control Background? CLEAR/WHITE (CLR/WHITE); Pregs Control Bar Appear? YES (CONTROL BAR)
[2021-06-17 14:05] LABS: ALT (SGPT) 10 U/L (8-55); AST (SGOT) 9 U/L (5-34); Albumin 3.8 g/dL (3.5-5.0); Alkaline Phosphatase 44 U/L (40-110); Anion Gap 17 mmol/L (10-20); BUN (Urea Nitrogen) 25 mg/dL (7.0-18.7); Calc. Creatinine Clearance 0 mL/min (70-130); Calcium 9.8 mg/dL (7.8-10.44); Carbon Dioxide 30 mmol/L (22-29); Chloride 93 mmol/L (98-107); Globulin 4.1 g/dL (2.4-3.5); Glucose 208 mg/dL (70-105); Lipase 26 U/L (8-78); Protein, Total 7.9 g/dL (6.0-8.3); Sodium 137 mmol/L (136-145)
== END 2021-06-17 16:23 | disposition home or self-care (01) ==
LOC: ERS 12:51
DX: I12.0 Hypertensive chronic kidney disease with stage 5 chronic kidney disease or end stage renal disease (principal); R11.2 Nausea with vomiting, unspecified; N18.6 End stage renal disease; E11.22 Type 2 diabetes mellitus with diabetic chronic kidney disease; F17.210 Nicotine dependence, cigarettes, uncomplicated; Z99.2 Dependence on renal dialysis; Z79.52 Long term (current) use of systemic steroids; Z79.899 Other long term (current) drug therapy
CPT/HCPCS: 36415; 80053; 83690; 84703; 85025; 96374; 96375; J2060; J2405; J2550

== ENCOUNTER 2022-01-21 14:06 | Emergency (ER) | payer MEDICARE ==
[2022-01-21] MEDS ORDERED: HYDROcodone/Acetaminophen 5/325 mg Tablet ONE (15:56)
== END 2022-01-21 17:32 | disposition home or self-care (01) ==
LOC: ERS 14:06
DX: L02.412 Cutaneous abscess of left axilla (principal); L73.2 Hidradenitis suppurativa; E11.9 Type 2 diabetes mellitus without complications; I10 Essential (primary) hypertension; F17.210 Nicotine dependence, cigarettes, uncomplicated; Z79.4 Long term (current) use of insulin; Z79.899 Other long term (current) drug therapy; Z99.2 Dependence on renal dialysis
CPT/HCPCS: 10060

== ENCOUNTER 2022-10-27 18:01 | Emergency (ER) | payer MEDICARE ==
[2022-10-27] MEDS ORDERED: Diazepam 5 MG TAB ONE (19:27)
[2022-10-27] MEDS ORDERED: Lidocaine 1% PF 5 ML VIAL ONE (19:27)
[2022-10-27] MEDS ORDERED: Lidocaine 1% w/Epinephrine 1:100K 20 ML VIAL ONE (19:29)
== END 2022-10-27 21:00 | disposition home or self-care (01) ==
LOC: ERS 18:01
DX: L02.811 Cutaneous abscess of head [any part, except face] (principal); L73.2 Hidradenitis suppurativa; E11.9 Type 2 diabetes mellitus without complications; I10 Essential (primary) hypertension; F17.210 Nicotine dependence, cigarettes, uncomplicated
CPT/HCPCS: 10060; 87070; 87077; 87186; 87205

== ENCOUNTER 2022-11-24 07:53 | Emergency (ER) | payer MEDICARE, OTHER ==
[2022-11-24 08:53] LABS: #Eosinphils 0.3 thou/uL (0.0-0.7); #Neutrophils 5.3 thou/uL (1.40-6.50); %Basophils 0.3 % (0.0-1.0); %Eosinophils 3.7 % (0.0-10.0); %Lymphocytes 23.5 % (21.0-51.0); %Monocytes 11.5 % (0.0-10.0); Hemoglobin 11.5 g/dL (12.0-16.0); Mean Corpuscular HGB CONC 31.2 g/dL (32.0-36.0); Mean Corpuscular Hemoglobin 31.7 pg (27.0-31.0); Mean Platelet Volume 7.9 fL (7.4-10.4); Platelet Count 294 10x3/uL (130-400); RBC Distribution Width 16.9 % (11.5-14.5); Red Blood Cell (RBC) Count 3.63 mill/uL (4.20-5.40); White Blood Cell (WBC) Count 8.6 10x3/uL (4.8-10.8)
[2022-11-24 09:14] LABS: ALT (SGPT) 16 U/L (8-55); AST (SGOT) 16 U/L (5-34); Albumin 3.6 g/dL (3.5-5.0); Alkaline Phosphatase 121 U/L (40-110); Anion Gap 17 mmol/L (10-20); BUN (Urea Nitrogen) 21 mg/dL (7.0-18.7); Bilirubin, Total 0.7 mg/dL (0.2-1.2); Calc. Creatinine Clearance 0 mL/min (70-130); Calcium 9.8 mg/dL (7.8-10.44); Carbon Dioxide 26 mmol/L (22-29); Chloride 96 mmol/L (98-107); Estimated GFR 6; Globulin 4.7 g/dL (2.4-3.5); Glucose 193 mg/dL (70-105); Protein, Total 8.3 g/dL (6.0-8.3); Sodium 136 mmol/L (136-145)
[2022-11-24] MEDS ORDERED: Potassium Chloride 20 MEQ TAB ONE (09:36)
== END 2022-11-24 09:40 | disposition home or self-care (01) ==
LOC: ERS 07:53
DX: E87.6 Hypokalemia (principal); F41.9 Anxiety disorder, unspecified; E11.9 Type 2 diabetes mellitus without complications; I10 Essential (primary) hypertension; F17.210 Nicotine dependence, cigarettes, uncomplicated
CPT/HCPCS: 36415; 71045; 80053; 85025; 93005

== ENCOUNTER 2023-04-05 07:38 | Outpatient (CLI) | payer OTHER | END 2023-04-05 07:39 | disposition home or self-care (01) | LOC: BICMAMMO 07:38 | PROVIDERS: ATTEND Family Medicine | DX: N63.0 Unspecified lump in unspecified breast (principal); R22.2 Localized swelling, mass and lump, trunk | CPT/HCPCS: 76642 ×2; 77066; G0279 ==

== ENCOUNTER 2023-08-24 14:36 | Outpatient (CLI) | payer OTHER | END 2023-08-24 14:37 | disposition home or self-care (01) | LOC: BICRAD 14:36 | PROVIDERS: ATTEND Family Medicine | DX: M79.672 Pain in left foot (principal) ==

== ENCOUNTER 2023-09-28 15:06 | Inpatient (IN) | payer OTHER ==
[2023-09-28 17:33] LABS: #Basophils 0.1 thou/uL (0.0-0.2); #Eosinphils 0.1 thou/uL (0.0-0.7); #Monocytes 1.7 thou/uL (0.11-0.59); #Neutrophils 17.6 thou/uL (1.40-6.50); %Basophils 0.3 % (0.0-1.0); %Eosinophils 0.5 % (0.0-10.0); %Lymphocytes 5.9 % (21.0-51.0); %Monocytes 7.9 % (0.0-10.0); %Neutrophils 84.3 % (42.0-75.0); Hematocrit 34.3 % (36.0-47.0); Hemoglobin 11.2 g/dL (12.0-16.0); Mean Corpuscular HGB CONC 32.7 g/dL (32.0-36.0); Mean Corpuscular Hemoglobin 30.4 pg (27.0-31.0); Platelet Count 327 10x3/uL (130-400); RBC Distribution Width 16.5 % (11.5-14.5); Red Blood Cell (RBC) Count 3.69 mill/uL (4.20-5.40); White Blood Cell (WBC) Count 20.9 10x3/uL (4.8-10.8)
[2023-09-28 18:02] LABS: ALT (SGPT) 18 U/L (8-55); AST (SGOT) 23 U/L (5-34); Albumin 3.5 g/dL (3.5-5.0); Alkaline Phosphatase 320 U/L (40-110); Anion Gap 18 mmol/L (10-20); BUN (Urea Nitrogen) 20 mg/dL (7.0-18.7); Bilirubin, Total 0.9 mg/dL (0.2-1.2); Calc. Creatinine Clearance 0 mL/min (70-130); Calcium 10.4 mg/dL (7.8-10.44); Carbon Dioxide 29 mmol/L (22-29); Chloride 93 mmol/L (98-107); Estimated GFR 12; Glucose 174 mg/dL (70-105); Protein, Total 10.5 g/dL (6.0-8.3); Sodium 136 mmol/L (136-145)
[2023-09-28] MEDS ORDERED: Lidocaine 1% w/Epinephrine 1:100K 20 ML VIAL ONE (18:27)
[2023-09-28] MEDS ORDERED: Sodium Chloride 0.9% 100 ML ONE (19:06)
[2023-09-28] MEDS ORDERED: Vancomycin 1 GM/200 ML (FROZEN) BAG ONE (19:06)
[2023-09-28] MEDS ORDERED: Piperacillin/Tazobactam 4.5 GM VIAL ONE (19:06)
[2023-09-28] MEDS ORDERED: HYDROcodone/Acetaminophen 5/325 mg Tablet ONE (19:20)
[2023-09-28] MEDS ORDERED: Glucagon 1 MG/ML KIT IM PRN (20:17)
[2023-09-28] MEDS ORDERED: Dextrose 5% in Water 1,000 ML IV PRN (20:17)
[2023-09-28] MEDS ORDERED: Dextrose 50% Abboject 50 ML SYRINGE SLOW IVP PRN (20:17)
[2023-09-28 20:35] LABS: Lactic Acid 1.4 mmol/L (0.5-2.2)
[2023-09-28 21:23] LABS: Glucose 163 mg/dL (70-105)
[2023-09-28 21:29] LABS: ALT (SGPT) 17 U/L (8-55); AST (SGOT) 17 U/L (5-34); Albumin 3.2 g/dL (3.5-5.0); Alkaline Phosphatase 302 U/L (40-110); Anion Gap 14 mmol/L (10-20); BUN (Urea Nitrogen) 21 mg/dL (7.0-18.7); Calc. Creatinine Clearance 0 mL/min (70-130); Calcium 10.2 mg/dL (7.8-10.44); Carbon Dioxide 31 mmol/L (22-29); Chloride 93 mmol/L (98-107); Estimated GFR 11; Globulin 6.1 g/dL (2.4-3.5); Glucose 164 mg/dL (70-105); Potassium 3.5 mmol/L (3.5-5.1); Protein, Total 9.3 g/dL (6.0-8.3); Sodium 134 mmol/L (136-145)
[2023-09-28] MEDS: Gabapentin 100 MG CAP PO SCH (22:01)
[2023-09-28] MEDS: hydrOXYzine 25 MG TAB PO PRN (22:02)
[2023-09-28] MEDS ORDERED: Promethazine 25 MG TAB PO PRN (22:04)
[2023-09-28] MEDS ORDERED: diphenhydrAMINE 25 MG CAP PO PRN (22:12)
[2023-09-28] MEDS ORDERED: EPOETIN ALFA-EPBX 10,000 UNITS/ML VIAL SC SCH (23:59)
[2023-09-29] MEDS: HYDROcodone/Acetaminophen 5/325 mg Tablet PO PRN ×2 (01:11→19:01)
[2023-09-29] MEDS ORDERED: Morphine 2 MG/ML VIAL SLOW IVP SCH (03:45)
[2023-09-29 04:51] LABS: #Basophils 0.1 thou/uL (0.0-0.2); #Eosinphils 0.1 thou/uL (0.0-0.7); #Monocytes 1.7 thou/uL (0.11-0.59); #Neutrophils 12.9 thou/uL (1.40-6.50); %Basophils 0.3 % (0.0-1.0); %Eosinophils 0.8 % (0.0-10.0); %Lymphocytes 7.7 % (21.0-51.0); %Monocytes 10.7 % (0.0-10.0); %Neutrophils 79.4 % (42.0-75.0); Hematocrit 30.3 % (36.0-47.0); Hemoglobin 9.7 g/dL (12.0-16.0); Mean Corpuscular Hemoglobin 30.2 pg (27.0-31.0); Mean Corpuscular Volume 94.4 fl (78.0-98.0); Mean Platelet Volume 9.7 fL (7.4-10.4); Platelet Count 267 10x3/uL (130-400); RBC Distribution Width 16.5 % (11.5-14.5); Red Blood Cell (RBC) Count 3.21 mill/uL (4.20-5.40); White Blood Cell (WBC) Count 16.2 10x3/uL (4.8-10.8)
[2023-09-29 05:19] LABS: ALT (SGPT) 17 U/L (8-55); AST (SGOT) 19 U/L (5-34); Albumin 2.8 g/dL (3.5-5.0); Alkaline Phosphatase 296 U/L (40-110); Anion Gap 14 mmol/L (10-20); BUN (Urea Nitrogen) 27 mg/dL (7.0-18.7); Calc. Creatinine Clearance 18 mL/min (70-130); Calcium 9.8 mg/dL (7.8-10.44); Carbon Dioxide 31 mmol/L (22-29); Chloride 93 mmol/L (98-107); Estimated GFR 10; Globulin 5.4 g/dL (2.4-3.5); Glucose 110 mg/dL (70-105); Magnesium 1.9 mg/dL (1.6-2.6); Phosphorus 5.2 mg/dL (2.3-4.7); Potassium 3.7 mmol/L (3.5-5.1); Protein, Total 8.2 g/dL (6.0-8.3); Sodium 134 mmol/L (136-145)
[2023-09-29] MEDS ORDERED: Cefepime 2 GM in Sodium Chloride 0.9% 100 ML IVPB SCH (06:20)
[2023-09-29] MEDS: Heparin 5,000 UNITS/ML VIAL SC SCH ×3 (08:03→21:03)
[2023-09-29] MEDS: hydrOXYzine 25 MG TAB PO PRN ×2 (08:53→20:37)
[2023-09-29] MEDS: Gabapentin 100 MG CAP PO SCH ×2 (08:53→21:04)
[2023-09-29] MEDS ORDERED: Vancomycin Diaylsis Sliding Scale (Wt 71-99) FS SCH (09:30)
[2023-09-29 10:22] LABS: Vancomycin, Random 9.2 ug/mL (See Comment)
[2023-09-29] MEDS ORDERED: Iopamidol 370 76% 100 ML VIAL ONE (11:45)
[2023-09-29] MEDS ORDERED: Midazolam HCl 2 mg/2 ml Vial ONE (12:05)
[2023-09-29] MEDS ORDERED: Heparin 10,000 UNITS/ 10 ML VIAL ONE (12:05)
[2023-09-29] MEDS ORDERED: fentaNYL 50 mcg/mL 1 mL Vial ONE (12:05)
[2023-09-29] MEDS ORDERED: Vancomycin HCl 500 MG in Sodium Chloride 0.9% 100 ML IVPB SCH (12:15)
[2023-09-29] MEDS: ALPRAZolam 0.25 MG TAB PO PRN (12:16)
[2023-09-29] MEDS: Cefepime 1 GM in Sodium Chloride 0.9% 100 ML IVPB SCH (17:05)
[2023-09-29] MEDS: NIFEdipine XL 60 MG ER.TAB PO SCH (17:05)
[2023-09-29] MEDS: Fentanyl 100 MCG/2 ML VIAL SLOW IVP PRN (20:36)
[2023-09-29] MEDS: HumaLOG 300 UNITS/3 ML VIAL SC PRN (21:03)
[2023-09-29 23:27] LABS: HBSAg Index 0.16 S/CO (0-0.99); Hep B Core Total Ab Non-Reactive (NonReactive); Hep B Core Total Index 0.12 S/CO (0-0.79); Hep B Surf Ag Non-Reactive S/CO (NonReactive); Hep C IgG Ab Non-Reactive S/CO (NonReactive); Hep C Index 0.35 S/CO (0-0.79)
[2023-09-29 23:32] LABS: HBSAB Concentration 23.41 mIU/mL; Hep B Surf AB Reactive (NonReactive)
[2023-09-30 04:10] LABS: #Basophils 0.1 thou/uL (0.0-0.2); #Eosinphils 0.2 thou/uL (0.0-0.7); #Neutrophils 13.6 thou/uL (1.40-6.50); %Basophils 0.3 % (0.0-1.0); %Eosinophils 1.2 % (0.0-10.0); %Lymphocytes 6.4 % (21.0-51.0); %Monocytes 11.4 % (0.0-10.0); %Neutrophils 79.3 % (42.0-75.0); Hematocrit 30.2 % (36.0-47.0); Hemoglobin 9.6 g/dL (12.0-16.0); Mean Corpuscular HGB CONC 31.8 g/dL (32.0-36.0); Mean Corpuscular Hemoglobin 30.3 pg (27.0-31.0); Mean Corpuscular Volume 95.3 fl (78.0-98.0); Mean Platelet Volume 9.8 fL (7.4-10.4); Platelet Count 275 10x3/uL (130-400); RBC Distribution Width 16.3 % (11.5-14.5); Red Blood Cell (RBC) Count 3.17 mill/uL (4.20-5.40); White Blood Cell (WBC) Count 17.2 10x3/uL (4.8-10.8)
[2023-09-30 06:08] LABS: ALT (SGPT) 15 U/L (8-55); AST (SGOT) 14 U/L (5-34); Albumin 2.9 g/dL (3.5-5.0); Alkaline Phosphatase 271 U/L (40-110); Anion Gap 16 mmol/L (10-20); BUN (Urea Nitrogen) 36 mg/dL (7.0-18.7); Bilirubin, Total 1.1 mg/dL (0.2-1.2); Calc. Creatinine Clearance 14 mL/min (70-130); Calcium 9.7 mg/dL (7.8-10.44); Carbon Dioxide 27 mmol/L (22-29); Chloride 93 mmol/L (98-107); Estimated GFR 8; Globulin 5.5 g/dL (2.4-3.5); Glucose 172 mg/dL (70-105); Magnesium 2.1 mg/dL (1.6-2.6); Phosphorus 6.4 mg/dL (2.3-4.7); Potassium 4.2 mmol/L (3.5-5.1); Protein, Total 8.4 g/dL (6.0-8.3); Sodium 132 mmol/L (136-145)
[2023-09-30 07:24] LABS: Vancomycin, Random 13.9 ug/mL (See Comment)
[2023-09-30] MEDS: Heparin 5,000 UNITS/ML VIAL SC SCH ×3 (08:41→21:05)
[2023-09-30] MEDS: Gabapentin 100 MG CAP PO SCH ×2 (08:41→21:05)
[2023-09-30] MEDS: Insulin NPH Human Isophane 100 UNITS/ML (10 ML VIAL) SC SCH ×2 (08:41→21:09)
[2023-09-30] MEDS: HYDROcodone/Acetaminophen 5/325 mg Tablet PO PRN ×2 (09:49→21:03)
[2023-09-30 11:35] LABS: Glucose 125 mg/dL (70-105)
[2023-09-30] MEDS ORDERED: Acetaminophen 325 MG TAB PO PRN (14:43)
[2023-09-30] MEDS: Fentanyl 100 MCG/2 ML VIAL SLOW IVP PRN ×3 (15:06→22:22)
[2023-09-30] MEDS ORDERED: Vancomycin 1 GM in Premix 1 BAG IVPB SCH (17:00)
[2023-09-30 17:23] LABS: Glucose 116 mg/dL (70-105)
[2023-09-30] MEDS: Cefepime 1 GM in Sodium Chloride 0.9% 100 ML IVPB SCH (17:31)
[2023-09-30] MEDS: hydrOXYzine 25 MG TAB PO PRN (21:05)
[2023-09-30] MEDS: NIFEdipine XL 60 MG ER.TAB PO SCH (21:05)
[2023-09-30 21:30] LABS: Glucose 224 mg/dL (70-105)
[2023-10-01] MEDS: Fentanyl 100 MCG/2 ML VIAL SLOW IVP PRN ×5 (00:42→20:41)
[2023-10-01] MEDS: ALPRAZolam 0.25 MG TAB PO PRN (00:42)
[2023-10-01 06:31] LABS: #Basophils 0.1 thou/uL (0.0-0.2); #Eosinphils 0.2 thou/uL (0.0-0.7); #Monocytes 1.8 thou/uL (0.11-0.59); #Neutrophils 13.5 thou/uL (1.40-6.50); %Basophils 0.3 % (0.0-1.0); %Eosinophils 1.1 % (0.0-10.0); %Monocytes 10.2 % (0.0-10.0); %Neutrophils 78.2 % (42.0-75.0); Hematocrit 33.4 % (36.0-47.0); Hemoglobin 10.3 g/dL (12.0-16.0); Mean Corpuscular HGB CONC 30.8 g/dL (32.0-36.0); Mean Corpuscular Hemoglobin 30.1 pg (27.0-31.0); Mean Corpuscular Volume 97.7 fl (78.0-98.0); Mean Platelet Volume 9.9 fL (7.4-10.4); Platelet Count 294 10x3/uL (130-400); RBC Distribution Width 16.3 % (11.5-14.5); Red Blood Cell (RBC) Count 3.42 mill/uL (4.20-5.40); White Blood Cell (WBC) Count 17.2 10x3/uL (4.8-10.8)
[2023-10-01 07:32] LABS: ALT (SGPT) 16 U/L (8-55); AST (SGOT) 20 U/L (5-34); Albumin 3.1 g/dL (3.5-5.0); Alkaline Phosphatase 347 U/L (40-110); Anion Gap 17 mmol/L (10-20); BUN (Urea Nitrogen) 22 mg/dL (7.0-18.7); Calc. Creatinine Clearance 18 mL/min (70-130); Calcium 10.2 mg/dL (7.8-10.44); Carbon Dioxide 26 mmol/L (22-29); Chloride 93 mmol/L (98-107); Estimated GFR 10; Globulin 6.4 g/dL (2.4-3.5); Glucose 124 mg/dL (70-105); Magnesium 2.3 mg/dL (1.6-2.6); Phosphorus 4.8 mg/dL (2.3-4.7); Potassium 3.2 mmol/L (3.5-5.1); Protein, Total 9.5 g/dL (6.0-8.3); Sodium 133 mmol/L (136-145)
[2023-10-01] MEDS ORDERED: Potassium Chloride 20 MEQ TAB PO SCH (08:00)
[2023-10-01] MEDS: Insulin NPH Human Isophane 100 UNITS/ML (10 ML VIAL) SC SCH ×2 (08:35→18:39)
[2023-10-01] MEDS: Gabapentin 100 MG CAP PO SCH ×2 (08:36→20:40)
[2023-10-01] MEDS: Heparin 5,000 UNITS/ML VIAL SC SCH ×3 (08:37→20:41)
[2023-10-01] MEDS: Cefepime 1 GM in Sodium Chloride 0.9% 100 ML IVPB SCH (17:38)
[2023-10-01] MEDS: hydrOXYzine 25 MG TAB PO PRN (20:40)
[2023-10-01] MEDS: NIFEdipine XL 60 MG ER.TAB PO SCH (20:40)
[2023-10-02] MEDS: Fentanyl 100 MCG/2 ML VIAL SLOW IVP PRN ×5 (00:13→20:34)
[2023-10-02] MEDS: ALPRAZolam 0.25 MG TAB PO PRN (00:14)
[2023-10-02] MEDS ORDERED: VANCOMYCIN IVPB PRN (07:21)
[2023-10-02 07:49] LABS: #Basophils 0.1 thou/uL (0.0-0.2); #Eosinphils 0.1 thou/uL (0.0-0.7); #Monocytes 1.7 thou/uL (0.11-0.59); #Neutrophils 12.4 thou/uL (1.40-6.50); %Basophils 0.4 % (0.0-1.0); %Eosinophils 0.9 % (0.0-10.0); %Lymphocytes 8.3 % (21.0-51.0); %Monocytes 10.7 % (0.0-10.0); Hematocrit 31.4 % (36.0-47.0); Mean Corpuscular HGB CONC 31.8 g/dL (32.0-36.0); Mean Corpuscular Hemoglobin 30.1 pg (27.0-31.0); Mean Corpuscular Volume 94.6 fl (78.0-98.0); Mean Platelet Volume 9.9 fL (7.4-10.4); Platelet Count 245 10x3/uL (130-400); RBC Distribution Width 16.1 % (11.5-14.5); Red Blood Cell (RBC) Count 3.32 mill/uL (4.20-5.40); White Blood Cell (WBC) Count 16.1 10x3/uL (4.8-10.8)
[2023-10-02 08:34] LABS: ALT (SGPT) 17 U/L (8-55); AST (SGOT) 30 U/L (5-34); Albumin 2.7 g/dL (3.5-5.0); Alkaline Phosphatase 387 U/L (40-110); Anion Gap 17 mmol/L (10-20); BUN (Urea Nitrogen) 33 mg/dL (7.0-18.7); Bilirubin, Total 1.1 mg/dL (0.2-1.2); Calc. Creatinine Clearance 14 mL/min (70-130); Calcium 9.8 mg/dL (7.8-10.44); Carbon Dioxide 25 mmol/L (22-29); Chloride 95 mmol/L (98-107); Estimated GFR 7; Globulin 5.6 g/dL (2.4-3.5); Glucose 224 mg/dL (70-105); Magnesium 2.2 mg/dL (1.6-2.6); Phosphorus 6.2 mg/dL (2.3-4.7); Protein, Total 8.3 g/dL (6.0-8.3); Sodium 133 mmol/L (136-145)
[2023-10-02] MEDS: Insulin NPH Human Isophane 100 UNITS/ML (10 ML VIAL) SC SCH ×2 (08:48→15:24)
[2023-10-02] MEDS: Gabapentin 100 MG CAP PO SCH ×2 (08:50→20:33)
[2023-10-02] MEDS: Heparin 5,000 UNITS/ML VIAL SC SCH ×3 (08:52→20:30)
[2023-10-02] MEDS: Cefepime 1 GM in Sodium Chloride 0.9% 100 ML IVPB SCH (16:08)
[2023-10-02] MEDS: HumaLOG 300 UNITS/3 ML VIAL SC PRN (16:08)
[2023-10-02] MEDS: NIFEdipine XL 60 MG ER.TAB PO SCH (20:30)
[2023-10-02] MEDS: HYDROcodone/Acetaminophen 5/325 mg Tablet PO PRN (20:33)
[2023-10-03] MEDS: Fentanyl 100 MCG/2 ML VIAL SLOW IVP PRN ×3 (00:01→08:50)
[2023-10-03 04:35] LABS: #Basophils 0.1 thou/uL (0.0-0.2); #Eosinphils 0.3 thou/uL (0.0-0.7); #Monocytes 1.8 thou/uL (0.11-0.59); #Neutrophils 14.3 thou/uL (1.40-6.50); %Basophils 0.5 % (0.0-1.0); %Eosinophils 1.3 % (0.0-10.0); %Monocytes 9.6 % (0.0-10.0); Hematocrit 27.6 % (36.0-47.0); Hemoglobin 8.9 g/dL (12.0-16.0); Mean Corpuscular HGB CONC 32.2 g/dL (32.0-36.0); Mean Corpuscular Hemoglobin 29.6 pg (27.0-31.0); Mean Platelet Volume 10.5 fL (7.4-10.4); Platelet Count 286 10x3/uL (130-400); Red Blood Cell (RBC) Count 3.01 mill/uL (4.20-5.40); White Blood Cell (WBC) Count 19.1 10x3/uL (4.8-10.8)
[2023-10-03 05:00] LABS: Mean Corpuscular Volume 91.7 fl (78.0-98.0)
[2023-10-03 05:03] LABS: ALT (SGPT) 25 U/L (8-55); AST (SGOT) 33 U/L (5-34); Albumin 2.7 g/dL (3.5-5.0); Alkaline Phosphatase 425 U/L (40-110); Anion Gap 19 mmol/L (10-20); BUN (Urea Nitrogen) 44 mg/dL (7.0-18.7); Bilirubin, Total 1.2 mg/dL (0.2-1.2); Calc. Creatinine Clearance 12 mL/min (70-130); Calcium 9.7 mg/dL (7.8-10.44); Carbon Dioxide 23 mmol/L (22-29); Chloride 93 mmol/L (98-107); Estimated GFR 6; Globulin 5.7 g/dL (2.4-3.5); Glucose 198 mg/dL (70-105); Magnesium 2.2 mg/dL (1.6-2.6); Phosphorus 6.5 mg/dL (2.3-4.7); Potassium 3.9 mmol/L (3.5-5.1); Protein, Total 8.4 g/dL (6.0-8.3); Sodium 131 mmol/L (136-145)
[2023-10-03 07:04] LABS: Vancomycin, Random 17.5 ug/mL (See Comment)
[2023-10-03] MEDS: Gabapentin 100 MG CAP PO SCH ×3 (08:50→20:05)
[2023-10-03] MEDS ORDERED: Insulin NPH Human Isophane 100 UNITS/ML (10 ML VIAL) SC SCH (09:54)
[2023-10-03] MEDS: Acetaminophen 325 MG TAB PO SCH ×3 (10:00→23:57)
[2023-10-03] MEDS: Heparin 5,000 UNITS/ML VIAL SC SCH ×3 (10:17→20:04)
[2023-10-03] MEDS: Insulin NPH Human Isophane 100 UNITS/ML (10 ML VIAL) SC SCH ×2 (10:18→18:58)
[2023-10-03] MEDS ORDERED: HYDROcodone/Acetaminophen 5/325 mg Tablet PO PRN (11:09)
[2023-10-03] MEDS ORDERED: HYDROcodone/Acetaminophen 5/325 mg Tablet PO SCH (12:00)
[2023-10-03] MEDS: HYDROcodone/Acetaminophen 5/325 mg Tablet PO PRN ×2 (14:48→21:21)
[2023-10-03] MEDS ORDERED: Vancomycin HCl 750 MG in Sodium Chloride 0.9% 250 ML 250 ML IVPB SCH (17:00)
[2023-10-03] MEDS: Cefepime 1 GM in Sodium Chloride 0.9% 100 ML IVPB SCH (17:38)
[2023-10-03] MEDS: NIFEdipine XL 60 MG ER.TAB PO SCH (20:05)
[2023-10-03] MEDS: hydrOXYzine 25 MG TAB PO PRN (20:08)
[2023-10-04] MEDS: ALPRAZolam 0.25 MG TAB PO PRN (02:59)
[2023-10-04] MEDS: HYDROcodone/Acetaminophen 5/325 mg Tablet PO PRN ×3 (02:59→15:55)
[2023-10-04 05:07] LABS: Hemoglobin 9.2 g/dL (12.0-16.0); Manual Diff?? YES; Mean Corpuscular HGB CONC 31.7 g/dL (32.0-36.0); Mean Corpuscular Hemoglobin 29.2 pg (27.0-31.0); Mean Corpuscular Volume 92.1 fl (78.0-98.0); Mean Platelet Volume 10.4 fL (7.4-10.4); Platelet Count 316 10x3/uL (130-400); RBC Distribution Width 16.4 % (11.5-14.5); Red Blood Cell (RBC) Count 3.15 mill/uL (4.20-5.40); White Blood Cell (WBC) Count 16.3 10x3/uL (4.8-10.8)
[2023-10-04 05:09] LABS: Delete Auto Diff?? YES
[2023-10-04 06:05] LABS: Band 3 % (5-11); CellaVision Operator ID lab.abc; Eosinophils 2 % (0-10); Hypochromia SLIGHT = 6-15 cells HPF (0-5); Lymphocytes 6 % (21-51); Monocytes 7 % (0-10); Myelocyte 1 % (0-0); Neutrophil 81 % (42-75); Platelet Adequacy Comment Platelets Normal; Polychromasia SLIGHT = 2-3 cells HPF (0-2); Total Cell Count 100
[2023-10-04 06:27] LABS: ALT (SGPT) 27 U/L (8-55); AST (SGOT) 34 U/L (5-34); Albumin 2.7 g/dL (3.5-5.0); Alkaline Phosphatase 454 U/L (40-110); Anion Gap 16 mmol/L (10-20); BUN (Urea Nitrogen) 22 mg/dL (7.0-18.7); Bilirubin, Total 1.4 mg/dL (0.2-1.2); Calc. Creatinine Clearance 17 mL/min (70-130); Calcium 9.9 mg/dL (7.8-10.44); Carbon Dioxide 25 mmol/L (22-29); Chloride 95 mmol/L (98-107); Estimated GFR 9; Globulin 5.9 g/dL (2.4-3.5); Glucose 170 mg/dL (70-105); Phosphorus 4.6 mg/dL (2.3-4.7); Potassium 3.8 mmol/L (3.5-5.1); Protein, Total 8.6 g/dL (6.0-8.3); Sodium 132 mmol/L (136-145)
[2023-10-04] MEDS: Acetaminophen 325 MG TAB PO SCH ×2 (07:00→13:35)
[2023-10-04] MEDS: Heparin 5,000 UNITS/ML VIAL SC SCH ×2 (09:59→15:57)
[2023-10-04] MEDS: Gabapentin 100 MG CAP PO SCH ×2 (09:59→15:56)
[2023-10-04] MEDS: Insulin NPH Human Isophane 100 UNITS/ML (10 ML VIAL) SC SCH (10:04)
[2023-10-04 16:49] VITALS: BP 147/78; TEMP 98
== END 2023-10-04 17:30 | disposition home health service (06) | DRG 602 ==
LOC: ERS 15:06 → SURG A 18:41
PROVIDERS: ADMIT Family Medicine; ATTEND Family Medicine
PROC: B41G1ZZ Fluoroscopy of Left Lower Extremity Arteries using Low Osmolar Contrast (ICD-10-PCS; principal; 2023-09-29)
DX: L03.116 Cellulitis of left lower limb (principal); N18.6 End stage renal disease; L02.811 Cutaneous abscess of head [any part, except face]; I12.0 Hypertensive chronic kidney disease with stage 5 chronic kidney disease or end stage renal disease; E11.621 Type 2 diabetes mellitus with foot ulcer; L97.529 Non-pressure chronic ulcer of other part of left foot with unspecified severity; I99.8 Other disorder of circulatory system; E11.22 Type 2 diabetes mellitus with diabetic chronic kidney disease; Z99.2 Dependence on renal dialysis; E78.5 Hyperlipidemia, unspecified; F41.9 Anxiety disorder, unspecified; E11.51 Type 2 diabetes mellitus with diabetic peripheral angiopathy without gangrene; Z88.8 Allergy status to other drugs, medicaments and biological substances; Z88.5 Allergy status to narcotic agent; Z79.899 Other long term (current) drug therapy; Z79.4 Long term (current) use of insulin; Z82.49 Family history of ischemic heart disease and other diseases of the circulatory system; Z83.3 Family history of diabetes mellitus; F17.210 Nicotine dependence, cigarettes, uncomplicated; D63.1 Anemia in chronic kidney disease
CPT/HCPCS: 10060; 36247; 36415; 36416; 75630; 80053; 80202; 83605; 83735; 84100; 85025; 86140; 86704; 87040; 90935; 93005; 96365; 96368; 97139; 99152; 99153; C1760; C1769; C1887; C1894; G0257; J0692; J1644; J1815; J2250; J2272; J2543; J3010; J3370; J3370-JW; J3490; J7050; J7999; Q5106; Q9967

== ENCOUNTER 2023-10-20 16:10 | Outpatient (CLI) | payer OTHER | END 2023-10-20 16:11 | disposition home or self-care (01) | LOC: RAD 16:10 | PROVIDERS: ATTEND Podiatrist | DX: L89.90 Pressure ulcer of unspecified site, unspecified stage (principal); E11.9 Type 2 diabetes mellitus without complications ==

== ENCOUNTER 2023-11-04 16:53 | Emergency (ER) | payer MEDICARE, OTHER ==
[2023-11-04 17:44] LABS: #Basophils 0.1 thou/uL (0.0-0.2); #Eosinphils 0.2 thou/uL (0.0-0.7); #Monocytes 1.3 thou/uL (0.11-0.59); #Neutrophils 9.6 thou/uL (1.40-6.50); %Basophils 0.5 % (0.0-1.0); %Eosinophils 1.8 % (0.0-10.0); %Lymphocytes 9.1 % (21.0-51.0); %Monocytes 10.7 % (0.0-10.0); %Neutrophils 77.3 % (42.0-75.0); Hematocrit 30.9 % (36.0-47.0); Hemoglobin 9.7 g/dL (12.0-16.0); Mean Corpuscular HGB CONC 31.4 g/dL (32.0-36.0); Mean Corpuscular Hemoglobin 29.1 pg (27.0-31.0); Mean Corpuscular Volume 92.8 fl (78.0-98.0); Mean Platelet Volume 9.5 fL (7.4-10.4); Platelet Count 365 10x3/uL (130-400); RBC Distribution Width 14.8 % (11.5-14.5); Red Blood Cell (RBC) Count 3.33 mill/uL (4.20-5.40); White Blood Cell (WBC) Count 12.5 10x3/uL (4.8-10.8)
[2023-11-04 18:02] LABS: ALT (SGPT) Less than 7 U/L (8-55); AST (SGOT) 13 U/L (5-34); Albumin 3.2 g/dL (3.5-5.0); Alkaline Phosphatase 236 U/L (40-110); Anion Gap 17 mmol/L (10-20); BUN (Urea Nitrogen) 11 mg/dL (7.0-18.7); Bilirubin, Total 0.9 mg/dL (0.2-1.2); Calc. Creatinine Clearance 0 mL/min (70-130); Carbon Dioxide 27 mmol/L (22-29); Chloride 94 mmol/L (98-107); Estimated GFR 15; Globulin 6.7 g/dL (2.4-3.5); Glucose 221 mg/dL (70-105); Potassium 3.3 mmol/L (3.5-5.1); Protein, Total 9.9 g/dL (6.0-8.3); Sodium 135 mmol/L (136-145)
[2023-11-04] MEDS ORDERED: Cefepime 2 GM VIAL ONE (18:54)
[2023-11-04] MEDS ORDERED: Sodium Chloride 0.9% 100 ML ONE (18:54)
[2023-11-04] MEDS ORDERED: Vancomycin 1 GM/200 ML (FROZEN) BAG ONE (19:33)
[2023-11-04 20:35] LABS: Lactic Acid 2.5 mmol/L (0.5-2.2)
== END 2023-11-04 21:32 | disposition home or self-care (01) ==
LOC: ERS 16:53
DX: M87.078 Idiopathic aseptic necrosis of left toe(s) (principal); L03.031 Cellulitis of right toe; F17.210 Nicotine dependence, cigarettes, uncomplicated; E11.65 Type 2 diabetes mellitus with hyperglycemia; I12.0 Hypertensive chronic kidney disease with stage 5 chronic kidney disease or end stage renal disease; E11.22 Type 2 diabetes mellitus with diabetic chronic kidney disease; N18.6 End stage renal disease; Z99.2 Dependence on renal dialysis; Z86.79 Personal history of other diseases of the circulatory system
CPT/HCPCS: 73630; 80053; 83605; 85025; 87040; 96365; 96366; 96367; 99284; J3370; 36415; J0692; J3490

== ENCOUNTER 2023-11-06 16:36 | Inpatient (IN) | payer OTHER ==
[2023-11-06 17:14] LABS: #Basophils 0.1 thou/uL (0.0-0.2); #Eosinphils 0.4 thou/uL (0.0-0.7); #Monocytes 1.3 thou/uL (0.11-0.59); %Basophils 0.6 % (0.0-1.0); %Eosinophils 2.5 % (0.0-10.0); %Lymphocytes 8.9 % (21.0-51.0); %Monocytes 9.3 % (0.0-10.0); %Neutrophils 77.6 % (42.0-75.0); Hemoglobin 9.4 g/dL (12.0-16.0); Mean Corpuscular HGB CONC 31.3 g/dL (32.0-36.0); Mean Corpuscular Hemoglobin 29.2 pg (27.0-31.0); Mean Corpuscular Volume 93.2 fl (78.0-98.0); Mean Platelet Volume 9.1 fL (7.4-10.4); Platelet Count 336 10x3/uL (130-400); RBC Distribution Width 14.9 % (11.5-14.5); Red Blood Cell (RBC) Count 3.22 mill/uL (4.20-5.40); White Blood Cell (WBC) Count 14.2 10x3/uL (4.8-10.8)
[2023-11-06 17:46] LABS: ALT (SGPT) 7 U/L (8-55); AST (SGOT) 16 U/L (5-34); Albumin 3.2 g/dL (3.5-5.0); Alkaline Phosphatase 248 U/L (40-110); Anion Gap 20 mmol/L (10-20); BUN (Urea Nitrogen) 28 mg/dL (7.0-18.7); Bilirubin, Total 0.7 mg/dL (0.2-1.2); Calc. Creatinine Clearance 0 mL/min (70-130); Calcium 10.3 mg/dL (7.8-10.44); Carbon Dioxide 27 mmol/L (22-29); Chloride 90 mmol/L (98-107); Estimated GFR 8; Globulin 6.9 g/dL (2.4-3.5); Glucose 174 mg/dL (70-105); Potassium 3.1 mmol/L (3.5-5.1); Protein, Total 10.1 g/dL (6.0-8.3); Sodium 134 mmol/L (136-145)
[2023-11-06] MEDS ORDERED: Sodium Chloride 0.9% 100 ML ONE (19:02)
[2023-11-06] MEDS ORDERED: Vancomycin 1 GM/200 ML (FROZEN) BAG ONE (19:02)
[2023-11-06] MEDS ORDERED: Cefepime 2 GM VIAL ONE (19:02)
[2023-11-06] MEDS ORDERED: fentaNYL 50 mcg/mL 1 mL Vial ONE (19:10)
[2023-11-06] MEDS ORDERED: Acetaminophen 325 MG TAB PO PRN (19:10)
[2023-11-06] MEDS ORDERED: Dextrose 5% in Water 1,000 ML IV PRN (20:33)
[2023-11-06] MEDS ORDERED: Glucagon 1 MG/ML KIT IM PRN (20:33)
[2023-11-06] MEDS ORDERED: Insulin Regular 300 UNITS/3 ML VIAL SC PRN (20:33)
[2023-11-06] MEDS ORDERED: HumaLOG 300 UNITS/3 ML VIAL SC PRN (20:33)
[2023-11-06] MEDS ORDERED: Dextrose 50% Abboject 50 ML SYRINGE SLOW IVP PRN (20:33)
[2023-11-06 20:43] LABS: CRP (Inflammatory) 9.85 mg/dL (= or < 0.5)
[2023-11-06] MEDS ORDERED: diphenhydrAMINE 25 MG CAP PO PRN (20:44)
[2023-11-06] MEDS ORDERED: Insulin NPH Human Isophane 100 UNITS/ML (10 ML VIAL) SC SCH (21:00)
[2023-11-06 21:21] LABS: Lactic Acid 2.5 mmol/L (0.5-2.2)
[2023-11-06] MEDS: Acetaminophen 325 MG TAB PO SCH (21:45)
[2023-11-06] MEDS: HYDROcodone/Acetaminophen 5/325 mg Tablet PO PRN (21:52)
[2023-11-06] MEDS: NIFEdipine XL 60 MG ER.TAB PO SCH (21:52)
[2023-11-06] MEDS: hydrOXYzine 25 MG TAB PO PRN (21:52)
[2023-11-06] MEDS: Potassium Chloride 20 MEQ TAB PO SCH (21:52)
[2023-11-06 21:53] VITALS: BMI 30.8
[2023-11-06] MEDS ORDERED: Vancomycin Diaylsis Sliding Scale (Wt 71-99) FS SCH (22:00)
[2023-11-06] MEDS: Vancomycin HCl 750 MG in Sodium Chloride 0.9% 250 ML 250 ML IVPB SCH (22:08)
[2023-11-07] MEDS ORDERED: Fentanyl 100 MCG/2 ML VIAL SLOW IVP PRN (05:04)
[2023-11-07] MEDS: HYDROcodone/Acetaminophen 10/325 mg Tablet PO PRN (05:31)
[2023-11-07] MEDS ORDERED: Vancomycin 1.5 GM in Sodium Chloride 0.9% 250 ML 300 ML IVPB SCH (06:00)
[2023-11-07 06:05] LABS: #Basophils 0.1 thou/uL (0.0-0.2); #Eosinphils 0.4 thou/uL (0.0-0.7); #Monocytes 1.5 thou/uL (0.11-0.59); #Neutrophils 10.6 thou/uL (1.40-6.50); %Basophils 0.4 % (0.0-1.0); %Eosinophils 2.7 % (0.0-10.0); %Lymphocytes 8.6 % (21.0-51.0); %Monocytes 10.5 % (0.0-10.0); %Neutrophils 75.9 % (42.0-75.0); Hematocrit 24.7 % (36.0-47.0); Hemoglobin 7.6 g/dL (12.0-16.0); Mean Corpuscular HGB CONC 30.8 g/dL (32.0-36.0); Mean Corpuscular Volume 94.3 fl (78.0-98.0); Mean Platelet Volume 9.8 fL (7.4-10.4); Platelet Count 306 10x3/uL (130-400); RBC Distribution Width 15.1 % (11.5-14.5); Red Blood Cell (RBC) Count 2.62 mill/uL (4.20-5.40); White Blood Cell (WBC) Count 13.9 10x3/uL (4.8-10.8)
[2023-11-07 06:54] LABS: Vancomycin, Random 39.2 ug/mL (See Comment)
[2023-11-07] MEDS ORDERED: Heparin 10,000 UNITS/ 10 ML VIAL ONE (06:55)
[2023-11-07 06:57] LABS: Anion Gap 14 mmol/L (10-20); BUN (Urea Nitrogen) 33 mg/dL (7.0-18.7); Calc. Creatinine Clearance 14 mL/min (70-130); Calcium 9.1 mg/dL (7.8-10.44); Carbon Dioxide 29 mmol/L (22-29); Chloride 94 mmol/L (98-107); Estimated GFR 7; Glucose 238 mg/dL (70-105); Potassium 3.4 mmol/L (3.5-5.1); Sodium 134 mmol/L (136-145)
[2023-11-07] MEDS ORDERED: Sucroferric Oxyhydroxide [Velphoro] 500 MG Tab.Chew PO SCH (08:00)
[2023-11-07] MEDS: Potassium Chloride 20 MEQ TAB PO SCH (08:01)
[2023-11-07] MEDS: Gabapentin 100 MG CAP PO SCH (08:02)
[2023-11-07] MEDS: Heparin 5,000 UNITS/ML VIAL SC SCH (08:07)
[2023-11-07] MEDS: Insulin NPH Human Isophane 100 UNITS/ML (10 ML VIAL) SC SCH ×2 (08:08→22:22)
[2023-11-07] MEDS: Epoetin (ESRD) 10,000 UNITS/ML VIAL SC SCH (08:09)
[2023-11-07] MEDS ORDERED: NIFEdipine XL 60 MG ER.TAB PO SCH (09:00)
[2023-11-07] MEDS: ALPRAZolam 0.25 MG TAB PO PRN (10:14)
[2023-11-07] MEDS: Cefepime 1 GM in Sodium Chloride 0.9% 100 ML IVPB SCH (22:18)
[2023-11-08 05:05] LABS: #Basophils 0.1 thou/uL (0.0-0.2); #Eosinphils 0.4 thou/uL (0.0-0.7); #Monocytes 1.5 thou/uL (0.11-0.59); #Neutrophils 10.9 thou/uL (1.40-6.50); %Basophils 0.6 % (0.0-1.0); %Eosinophils 2.7 % (0.0-10.0); %Lymphocytes 7.5 % (21.0-51.0); %Monocytes 10.7 % (0.0-10.0); %Neutrophils 75.8 % (42.0-75.0); Hematocrit 26.2 % (36.0-47.0); Hemoglobin 7.9 g/dL (12.0-16.0); Mean Corpuscular HGB CONC 30.2 g/dL (32.0-36.0); Mean Corpuscular Hemoglobin 28.4 pg (27.0-31.0); Mean Corpuscular Volume 94.2 fl (78.0-98.0); Mean Platelet Volume 10.1 fL (7.4-10.4); Platelet Count 337 10x3/uL (130-400); RBC Distribution Width 15.2 % (11.5-14.5); Red Blood Cell (RBC) Count 2.78 mill/uL (4.20-5.40); White Blood Cell (WBC) Count 14.3 10x3/uL (4.8-10.8)
[2023-11-08 05:19] LABS: Anion Gap 13 mmol/L (10-20); BUN (Urea Nitrogen) 18 mg/dL (7.0-18.7); CRP (Inflammatory) 6.51 mg/dL (= or < 0.5); Calc. Creatinine Clearance 20 mL/min (70-130); Calcium 9.5 mg/dL (7.8-10.44); Carbon Dioxide 27 mmol/L (22-29); Chloride 97 mmol/L (98-107); Estimated GFR 11; Glucose 197 mg/dL (70-105); Potassium 3.4 mmol/L (3.5-5.1); Sodium 134 mmol/L (136-145)
[2023-11-09 07:20] LABS: #Basophils 0.1 thou/uL (0.0-0.2); #Eosinphils 0.4 thou/uL (0.0-0.7); #Monocytes 1.4 thou/uL (0.11-0.59); #Neutrophils 10.2 thou/uL (1.40-6.50); %Basophils 0.4 % (0.0-1.0); %Eosinophils 2.6 % (0.0-10.0); %Lymphocytes 9.6 % (21.0-51.0); %Monocytes 10.2 % (0.0-10.0); %Neutrophils 74.6 % (42.0-75.0); Hematocrit 26.6 % (36.0-47.0); Mean Corpuscular HGB CONC 30.1 g/dL (32.0-36.0); Mean Corpuscular Hemoglobin 29.1 pg (27.0-31.0); Mean Corpuscular Volume 96.7 fl (78.0-98.0); Mean Platelet Volume 9.7 fL (7.4-10.4); Platelet Count 276 10x3/uL (130-400); RBC Distribution Width 15.7 % (11.5-14.5); Red Blood Cell (RBC) Count 2.75 mill/uL (4.20-5.40); White Blood Cell (WBC) Count 13.6 10x3/uL (4.8-10.8)
[2023-11-09 07:48] LABS: Vancomycin, Random 25.6 ug/mL (See Comment)
[2023-11-09 07:59] LABS: Anion Gap 16 mmol/L (10-20); BUN (Urea Nitrogen) 29 mg/dL (7.0-18.7); Calc. Creatinine Clearance 15 mL/min (70-130); Calcium 10.2 mg/dL (7.8-10.44); Carbon Dioxide 25 mmol/L (22-29); Chloride 98 mmol/L (98-107); Estimated GFR 8; Glucose 84 mg/dL (70-105); Sodium 135 mmol/L (136-145)
[2023-11-09] MEDS ORDERED: Communication Order-Pharmacy FS SCH (09:14)
[2023-11-09] MEDS ORDERED: Epoetin (ESRD) 20,000 UNITS/ML MDV IVP SCH (13:24)
[2023-11-09] MEDS: Promethazine 25 MG TAB PO PRN (14:37)
[2023-11-09] MEDS ORDERED: Heparin 10,000 UNITS/ 10 ML VIAL ONE (15:41)
[2023-11-10] MEDS: Fentanyl 100 MCG/2 ML VIAL SLOW IVP PRN (02:04)
[2023-11-10 06:25] LABS: #Basophils 0.1 thou/uL (0.0-0.2); #Eosinphils 0.4 thou/uL (0.0-0.7); #Monocytes 1.6 thou/uL (0.11-0.59); #Neutrophils 12.2 thou/uL (1.40-6.50); %Basophils 0.7 % (0.0-1.0); %Eosinophils 2.2 % (0.0-10.0); %Lymphocytes 8.3 % (21.0-51.0); %Monocytes 9.6 % (0.0-10.0); %Neutrophils 74.3 % (42.0-75.0); Mean Corpuscular HGB CONC 30.5 g/dL (32.0-36.0); Mean Corpuscular Hemoglobin 28.7 pg (27.0-31.0); Mean Corpuscular Volume 94.1 fl (78.0-98.0); Mean Platelet Volume 10.3 fL (7.4-10.4); Platelet Count 310 10x3/uL (130-400); Red Blood Cell (RBC) Count 4.04 mill/uL (4.20-5.40); White Blood Cell (WBC) Count 16.5 10x3/uL (4.8-10.8)
[2023-11-10 06:33] LABS: Hemoglobin 11.6 g/dL (12.0-16.0)
[2023-11-10 06:35] LABS: Anion Gap 19 mmol/L (10-20); BUN (Urea Nitrogen) 20 mg/dL (7.0-18.7); Calc. Creatinine Clearance 22 mL/min (70-130); Calcium 10.6 mg/dL (7.8-10.44); Carbon Dioxide 20 mmol/L (22-29); Chloride 97 mmol/L (98-107); Estimated GFR 12; Glucose 89 mg/dL (70-105); Sodium 132 mmol/L (136-145)
[2023-11-10] MEDS ORDERED: PROPOFOL 20 ML ONE (06:55)
[2023-11-10] MEDS ORDERED: Midazolam HCl 2 mg/2 ml Vial ONE (06:55)
[2023-11-10] MEDS ORDERED: fentaNYL PF 100 MCG/2 ML SYRINGE ONE (06:55)
[2023-11-10] MEDS ORDERED: CEFAZOLIN 2 GM in Sodium Chloride 0.9% 100 ML IVPB SCH (07:00)
[2023-11-10] MEDS ORDERED: Sodium Chloride 0.9% 100 ML ONE (07:21)
[2023-11-10] MEDS ORDERED: CEFAZOLIN 2 GM VIAL ONE (07:21)
[2023-11-10] MEDS ORDERED: Ondansetron PF 4 MG/2 ML Vial ONE (07:54)
[2023-11-10] MEDS ORDERED: Metoclopramide HCl 10 MG (2 mL) VIAL ONE (07:54)
[2023-11-10] MEDS ORDERED: Promethazine HCl 25 MG/ML VIAL IM PRN ×2 (08:01→09:50)
[2023-11-10] MEDS ORDERED: HYDROmorphone 2 MG/ML VIAL SLOW IVP PRN (08:01)
[2023-11-10] MEDS ORDERED: Ondansetron HCl/PF 4 MG/2 ML Vial IVP PRN (08:01)
[2023-11-10] MEDS ORDERED: Rocuronium Bromide 10 MG/ML (10ML VIAL) ONE (08:36)
[2023-11-10] MEDS ORDERED: SUGAMMADEX SODIUM 200 MG/2 ML VIAL ONE (09:27)
[2023-11-10] MEDS ORDERED: fentaNYL 50 mcg/mL 1 mL Vial ONE ×3 (09:38→10:12)
[2023-11-10] MEDS ORDERED: HYDROmorphone 0.5 MG/0.5 ML SYRINGE ONE ×4 (10:20→10:58)
[2023-11-10 12:51] LABS: BHCG - Serum Negative (NEGATIVE); Pregs Control Background? CLEAR/WHITE (CLR/WHITE); Pregs Control Bar Appear? YES (CONTROL BAR)
[2023-11-10] MEDS: fentaNYL 50 mcg/mL 1 mL Vial SLOW IVP PRN (17:14)
[2023-11-11] MEDS: HYDROcodone/Acetaminophen 5/325 mg Tablet PO PRN (02:24)
[2023-11-11 04:53] LABS: Hemoglobin 8.8 g/dL (12.0-16.0); Manual Diff?? YES; Mean Corpuscular HGB CONC 30.7 g/dL (32.0-36.0); Mean Corpuscular Hemoglobin 28.7 pg (27.0-31.0); Mean Corpuscular Volume 93.5 fl (78.0-98.0); Mean Platelet Volume 10.2 fL (7.4-10.4); Platelet Count 227 10x3/uL (130-400); RBC Distribution Width 16.6 % (11.5-14.5); Red Blood Cell (RBC) Count 3.07 mill/uL (4.20-5.40); White Blood Cell (WBC) Count 15.5 10x3/uL (4.8-10.8)
[2023-11-11 05:26] LABS: Delete Auto Diff?? YES
[2023-11-11 05:32] LABS: Anion Gap 16 mmol/L (10-20); BUN (Urea Nitrogen) 29 mg/dL (7.0-18.7); Calc. Creatinine Clearance 18 mL/min (70-130); Calcium 9.5 mg/dL (7.8-10.44); Carbon Dioxide 25 mmol/L (22-29); Chloride 97 mmol/L (98-107); Estimated GFR 10; Glucose 109 mg/dL (70-105); Potassium 3.7 mmol/L (3.5-5.1); Sodium 134 mmol/L (136-145)
[2023-11-11 07:29] LABS: Lymphocytes 5 % (21-51); Monocytes 7 % (0-10); Neutrophil 88 % (42-75)
[2023-11-11 08:32] LABS: Platelet Adequacy Comment Platelets Normal
[2023-11-11 08:59] LABS: Vancomycin, Random 15.6 ug/mL (See Comment)
[2023-11-11 10:28] LABS: Hematocrit 28.7 % (36.0-47.0)
[2023-11-11] MEDS ORDERED: Heparin 10,000 UNITS/ 10 ML VIAL ONE (10:32)
[2023-11-11] MEDS ORDERED: Vancomycin Diaylsis Sliding Scale (Wt 71-99) FS SCH (16:45)
[2023-11-11] MEDS ORDERED: Vancomycin HCl 750 MG in Sodium Chloride 0.9% 250 ML 250 ML IVPB SCH (17:00)
[2023-11-11] MEDS ORDERED: Cefepime 1 GM in Sodium Chloride 0.9% 100 ML IVPB SCH (17:00)
[2023-11-11] MEDS: Gabapentin 100 MG CAP PO SCH (18:06)
[2023-11-11] MEDS: Vancomycin HCl 750 MG in Sodium Chloride 0.9% 250 ML 250 ML IVPB SCH (18:08)
[2023-11-11] MEDS: Cefepime 1 GM in Sodium Chloride 0.9% 100 ML IVPB SCH (20:29)
[2023-11-12 06:54] LABS: #Basophils 0.1 thou/uL (0.0-0.2); #Eosinphils 0.6 thou/uL (0.0-0.7); #Monocytes 1.9 thou/uL (0.11-0.59); #Neutrophils 10.8 thou/uL (1.40-6.50); %Basophils 0.3 % (0.0-1.0); %Eosinophils 3.7 % (0.0-10.0); %Monocytes 12.6 % (0.0-10.0); %Neutrophils 71.9 % (42.0-75.0); Hematocrit 29.8 % (36.0-47.0); Hemoglobin 9.1 g/dL (12.0-16.0); Mean Corpuscular HGB CONC 30.5 g/dL (32.0-36.0); Mean Corpuscular Hemoglobin 29.1 pg (27.0-31.0); Mean Corpuscular Volume 95.2 fl (78.0-98.0); Mean Platelet Volume 9.7 fL (7.4-10.4); Platelet Count 208 10x3/uL (130-400); RBC Distribution Width 16.3 % (11.5-14.5); Red Blood Cell (RBC) Count 3.13 mill/uL (4.20-5.40)
[2023-11-12 07:11] LABS: Anion Gap 14 mmol/L (10-20); BUN (Urea Nitrogen) 18 mg/dL (7.0-18.7); Calc. Creatinine Clearance 26 mL/min (70-130); Calcium 9.4 mg/dL (7.8-10.44); Carbon Dioxide 25 mmol/L (22-29); Chloride 97 mmol/L (98-107); Estimated GFR 15; Glucose 121 mg/dL (70-105); Potassium 3.6 mmol/L (3.5-5.1); Sodium 132 mmol/L (136-145)
[2023-11-12] MEDS: Gabapentin 100 MG CAP PO SCH ×2 (11:59→20:18)
[2023-11-13 06:13] LABS: #Basophils 0.1 thou/uL (0.0-0.2); #Eosinphils 0.6 thou/uL (0.0-0.7); #Neutrophils 11.4 thou/uL (1.40-6.50); %Basophils 0.7 % (0.0-1.0); %Eosinophils 3.9 % (0.0-10.0); %Lymphocytes 9.1 % (21.0-51.0); %Monocytes 12.3 % (0.0-10.0); %Neutrophils 70.1 % (42.0-75.0); Hematocrit 30.8 % (36.0-47.0); Hemoglobin 9.4 g/dL (12.0-16.0); Mean Corpuscular HGB CONC 30.5 g/dL (32.0-36.0); Mean Corpuscular Hemoglobin 28.3 pg (27.0-31.0); Mean Corpuscular Volume 92.8 fl (78.0-98.0); Mean Platelet Volume 10.3 fL (7.4-10.4); Platelet Count 238 10x3/uL (130-400); RBC Distribution Width 16.1 % (11.5-14.5); Red Blood Cell (RBC) Count 3.32 mill/uL (4.20-5.40); White Blood Cell (WBC) Count 16.3 10x3/uL (4.8-10.8)
[2023-11-13 06:44] LABS: Anion Gap 17 mmol/L (10-20); BUN (Urea Nitrogen) 26 mg/dL (7.0-18.7); Calc. Creatinine Clearance 20 mL/min (70-130); Calcium 9.7 mg/dL (7.8-10.44); Carbon Dioxide 22 mmol/L (22-29); Chloride 97 mmol/L (98-107); Estimated GFR 11; Glucose 87 mg/dL (70-105); Potassium 3.8 mmol/L (3.5-5.1); Sodium 132 mmol/L (136-145)
[2023-11-14 05:12] LABS: #Basophils 0.1 thou/uL (0.0-0.2); #Eosinphils 0.7 thou/uL (0.0-0.7); #Monocytes 1.7 thou/uL (0.11-0.59); #Neutrophils 9.9 thou/uL (1.40-6.50); %Basophils 0.4 % (0.0-1.0); %Eosinophils 4.9 % (0.0-10.0); %Neutrophils 69.8 % (42.0-75.0); Hematocrit 29.4 % (36.0-47.0); Hemoglobin 9.2 g/dL (12.0-16.0); Mean Corpuscular HGB CONC 31.3 g/dL (32.0-36.0); Mean Corpuscular Volume 92.7 fl (78.0-98.0); Mean Platelet Volume 10.5 fL (7.4-10.4); Platelet Count 223 10x3/uL (130-400); RBC Distribution Width 15.9 % (11.5-14.5); Red Blood Cell (RBC) Count 3.17 mill/uL (4.20-5.40); White Blood Cell (WBC) Count 14.2 10x3/uL (4.8-10.8)
[2023-11-14 05:57] LABS: Anion Gap 18 mmol/L (10-20); BUN (Urea Nitrogen) 36 mg/dL (7.0-18.7); Calc. Creatinine Clearance 16 mL/min (70-130); Calcium 9.4 mg/dL (7.8-10.44); Carbon Dioxide 21 mmol/L (22-29); Chloride 96 mmol/L (98-107); Estimated GFR 9; Glucose 98 mg/dL (70-105); Sodium 131 mmol/L (136-145)
[2023-11-14] MEDS: Gabapentin 100 MG CAP PO SCH (08:16)
[2023-11-14] MEDS: EPOETIN ALFA-EPBX (ESRD) 10,000 UNITS/ML VIAL SC SCH (10:23)
[2023-11-14] MEDS: Vancomycin 1 GM in Premix 1 BAG IVPB SCH (16:39)
[2023-11-15 04:42] LABS: #Basophils 0.1 thou/uL (0.0-0.2); #Eosinphils 0.5 thou/uL (0.0-0.7); #Monocytes 1.6 thou/uL (0.11-0.59); #Neutrophils 9.7 thou/uL (1.40-6.50); %Basophils 0.4 % (0.0-1.0); %Eosinophils 3.5 % (0.0-10.0); %Lymphocytes 9.4 % (21.0-51.0); %Monocytes 11.5 % (0.0-10.0); Hematocrit 29.6 % (36.0-47.0); Hemoglobin 9.3 g/dL (12.0-16.0); Mean Corpuscular HGB CONC 31.4 g/dL (32.0-36.0); Mean Corpuscular Hemoglobin 29.3 pg (27.0-31.0); Mean Corpuscular Volume 93.4 fl (78.0-98.0); Mean Platelet Volume 10.2 fL (7.4-10.4); Platelet Count 210 10x3/uL (130-400); RBC Distribution Width 15.9 % (11.5-14.5); Red Blood Cell (RBC) Count 3.17 mill/uL (4.20-5.40); White Blood Cell (WBC) Count 13.7 10x3/uL (4.8-10.8)
[2023-11-15 05:38] LABS: Anion Gap 13 mmol/L (10-20); BUN (Urea Nitrogen) 21 mg/dL (7.0-18.7); Calc. Creatinine Clearance 23 mL/min (70-130); Carbon Dioxide 26 mmol/L (22-29); Chloride 99 mmol/L (98-107); Estimated GFR 13; Glucose 117 mg/dL (70-105); Potassium 3.7 mmol/L (3.5-5.1); Sodium 134 mmol/L (136-145)
[2023-11-16 07:10] LABS: Vancomycin, Trough 20.5 ug/mL
[2023-11-16] MEDS: Vancomycin HCl 500 MG in Sodium Chloride 0.9% 100 ML IVPB SCH (17:47)
[2023-11-17] MEDS: Ondansetron PF 4 MG/2 ML Vial IVP PRN (07:45)
[2023-11-17] MEDS: NIFEdipine XL 90 MG ER.TAB PO SCH (21:16)
[2023-11-18] MEDS: Ipratropium/Albuterol 3 ML NEB NEB PRN (07:49)
[2023-11-18 07:56] LABS: Hemoglobin 8.2 g/dL (12.0-16.0); Manual Diff?? YES; Mean Corpuscular HGB CONC 31.5 g/dL (32.0-36.0); Mean Corpuscular Hemoglobin 28.7 pg (27.0-31.0); Mean Corpuscular Volume 90.9 fl (78.0-98.0); Mean Platelet Volume 10.4 fL (7.4-10.4); Platelet Count 256 10x3/uL (130-400); RBC Distribution Width 16.3 % (11.5-14.5); Red Blood Cell (RBC) Count 2.86 mill/uL (4.20-5.40); White Blood Cell (WBC) Count 15.9 10x3/uL (4.8-10.8)
[2023-11-18 07:59] LABS: Delete Auto Diff?? YES
[2023-11-18 08:18] LABS: Anion Gap 16 mmol/L (10-20); BUN (Urea Nitrogen) 30 mg/dL (7.0-18.7); Calc. Creatinine Clearance 19 mL/min (70-130); Calcium 9.3 mg/dL (7.8-10.44); Carbon Dioxide 24 mmol/L (22-29); Chloride 97 mmol/L (98-107); Estimated GFR 10; Glucose 168 mg/dL (70-105); Sodium 133 mmol/L (136-145)
[2023-11-18 08:23] LABS: Band 3 % (5-11); CellaVision Operator ID LAB.KW3; Eosinophils 2 % (0-10); Giant Platelets 1.9 % (0-5); Large Platelets 8.5 % (0-5); Lymphocytes 8 % (21-51); Monocytes 8 % (0-10); Neutrophil 78 % (42-75); Nucleated RBC (Manual Ct) 1 % (0); Platelet Adequacy Comment Platelets Normal; RBC Morphology Within Normal Limits; Total Cell Count 106
[2023-11-18] MEDS ORDERED: Heparin 10,000 UNITS/ 10 ML VIAL ONE (13:36)
[2023-11-18] MEDS: Vancomycin HCl 750 MG in Sodium Chloride 0.9% 250 ML 250 ML IVPB SCH (16:11)
[2023-11-20] MEDS ORDERED: Ondansetron ODT 4 MG TAB PO PRN (11:05)
[2023-11-20] MEDS: Ondansetron ODT 8 MG TAB SL PRN (12:44)
[2023-11-20] MEDS: Lactated Ringer's 1,000 ML IV SCH (13:18)
[2023-11-20 18:27] LABS: Clarity Extra Turbid (Clear); Leukocyte Unable to Interpret Leu/uL (Negative); Specific Gravity, Urine 1.027 (1.002-1.036); pH, Urine 5.9 (5.0-9.0)
[2023-11-20 18:28] LABS: Bilirubin Unable to Interpret (Negative); Blood, Urine Unable to Interpret (Negative); Glucose, Urine (Dipstick) Unable to Interpret mg/dL (Negative); Ketone, Urine Unable to Interpret mg/dL (Negative); Nitrite Unable to Interpret (Negative); Protein, Urine (Dipstick) Unable to Interpret mg/dL (Neg-Trace); Urobilinogen UNABLE TO INTERPRET mg/dL (Less than 2)
[2023-11-20 18:35] LABS: Bacteria/HPF 4+ HPF (None Seen); CAUTI Indications for Culture Pelvic or flank pain; Trichomonas/HPF Rare HPF (None Seen); WBC/HPF Greater Than 50 HPF (0-3)
[2023-11-20 18:37] LABS: Urine Culture Reflex Yes Yes
[2023-11-20] MEDS: Heparin 5,000 UNITS/ML VIAL SC SCH (21:17)
[2023-11-20] MEDS: Docusate 100 MG CAP PO PRN (21:19)
[2023-11-20] MEDS: metroNIDAZOLE 250 MG TAB PO SCH (21:20)
[2023-11-21 07:43] LABS: Vancomycin, Trough 16.5 ug/mL
[2023-11-21 12:31] LABS: Anion Gap 21 mmol/L (10-20); BUN (Urea Nitrogen) 33 mg/dL (7.0-18.7); Calc. Creatinine Clearance 15 mL/min (70-130); Calcium 9.6 mg/dL (7.8-10.44); Carbon Dioxide 20 mmol/L (22-29); Chloride 97 mmol/L (98-107); Estimated GFR 8; Glucose 102 mg/dL (70-105); Potassium 4.9 mmol/L (3.5-5.1); Sodium 133 mmol/L (136-145)
[2023-11-21] MEDS ORDERED: Heparin 10,000 UNITS/ 10 ML VIAL ONE (13:38)
[2023-11-21] MEDS: Vancomycin HCl 750 MG in Sodium Chloride 0.9% 250 ML 250 ML IVPB SCH (17:32)
[2023-11-22 06:39] LABS: Anion Gap 17 mmol/L (10-20); BUN (Urea Nitrogen) 25 mg/dL (7.0-18.7); Calc. Creatinine Clearance 20 mL/min (70-130); Calcium 9.5 mg/dL (7.8-10.44); Carbon Dioxide 24 mmol/L (22-29); Chloride 96 mmol/L (98-107); Estimated GFR 11; Glucose 171 mg/dL (70-105); Potassium 4.4 mmol/L (3.5-5.1); Sodium 133 mmol/L (136-145)
[2023-11-22] MEDS ORDERED: Vancomycin Diaylsis Sliding Scale (Wt 71-99) FS SCH (07:45)
[2023-11-22] MEDS: Cefepime 1 GM in Sodium Chloride 0.9% 100 ML IVPB SCH (21:08)
[2023-11-23 06:24] LABS: Anion Gap 22 mmol/L (10-20); BUN (Urea Nitrogen) 34 mg/dL (7.0-18.7); Calc. Creatinine Clearance 17 mL/min (70-130); Calcium 9.9 mg/dL (7.8-10.44); Carbon Dioxide 20 mmol/L (22-29); Chloride 95 mmol/L (98-107); Estimated GFR 9; Glucose 141 mg/dL (70-105); Potassium 4.7 mmol/L (3.5-5.1); Sodium 132 mmol/L (136-145)
[2023-11-23 06:53] LABS: Vancomycin, Trough 17.2 ug/mL
[2023-11-23 08:50] VITALS: BP 108/69; TEMP 97.3
[2023-11-23] MEDS ORDERED: Heparin 10,000 UNITS/ 10 ML VIAL ONE (11:31)
[2023-11-23] MEDS: HYDROcodone/Acetaminophen 5/325 mg Tablet PO PRN (12:28)
[2023-11-23] MEDS ORDERED: Vancomycin HCl 750 MG in Sodium Chloride 0.9% 250 ML 250 ML IVPB SCH (17:00)
== END 2023-11-23 16:15 | disposition home or self-care (01) | DRG 617 ==
LOC: ERS 16:36 → T4-B 18:39 → OBSVTOIN 11-07 11:41 → T4-B 11-17 11:02
PROVIDERS: ADMIT Student in an Organized Health Care Education/Training Program; ATTEND Student in an Organized Health Care Education/Training Program
PROC: 0Y6J0Z2 Detachment at Left Lower Leg, Mid, Open Approach (ICD-10-PCS; principal; 2023-11-10)
DX: E11.69 Type 2 diabetes mellitus with other specified complication (principal); E11.52 Type 2 diabetes mellitus with diabetic peripheral angiopathy with gangrene; I12.0 Hypertensive chronic kidney disease with stage 5 chronic kidney disease or end stage renal disease; M86.172 Other acute osteomyelitis, left ankle and foot; E87.1 Hypo-osmolality and hyponatremia; E11.22 Type 2 diabetes mellitus with diabetic chronic kidney disease; N18.6 End stage renal disease; D63.1 Anemia in chronic kidney disease; E78.5 Hyperlipidemia, unspecified; F41.9 Anxiety disorder, unspecified; E87.6 Hypokalemia; N76.0 Acute vaginitis; I95.9 Hypotension, unspecified; F17.200 Nicotine dependence, unspecified, uncomplicated; H54.8 Legal blindness, as defined in USA; Z79.4 Long term (current) use of insulin; Z99.2 Dependence on renal dialysis
CPT/HCPCS: 36415; 36416; 36430; 71045; 80048; 80053; 80202; 81001; 83605; 84145; 84703; 85025; 86140; 86850; 86900; 86901; 87040; 87077; 87086; 87480; 87510; 87660; 88307; 88311; 88312; 90935; 94640; 96365; 96366; 96367; 96375; 96376; 97139; G0257; G0378; J0692; J1170; J1644; J1815; J2250; J2405; J2704; J2765; J3010; J3370; J3370-JW; J3490; J7050; J7620; P9016; Q0162; Q0169; Q5105